=== PATIENT | male | born 1980 | race Two or more races ===

== ENCOUNTER → 2020-10-19 11:49 | Outpatient (BNVA) | payer OTHER, SELFPAY | PROVIDERS: PCP Nurse Practitioner Family; Referring Provider Nurse Practitioner Family; Visit Provider Internal Medicine Endocrinology, Diabetes & Metabolism | DX: Z76.89 Persons encountering health services in other specified circumstances (principal) ==

== ENCOUNTER 2021-02-16 13:55 | Outpatient (REF) | payer OTHER, SELFPAY | END 2021-02-16 13:56 | disposition home or self-care (01) | LOC: HO.LAB 13:55 | PROVIDERS: Visit Provider Internal Medicine | DX: Z20.822 Contact with and (suspected) exposure to COVID-19 (principal) | CPT/HCPCS: 36415; C9803; U0003; U0005 ==

== ENCOUNTER → 2021-03-30 10:51 | Outpatient (BNVA) | payer OTHER, SELFPAY | PROVIDERS: PCP Nurse Practitioner Family; Visit Provider Internal Medicine Endocrinology, Diabetes & Metabolism | DX: E11.65 Type 2 diabetes mellitus with hyperglycemia (principal); E11.21 Type 2 diabetes mellitus with diabetic nephropathy; E11.3393 Type 2 diabetes mellitus with moderate nonproliferative diabetic retinopathy without macular edema, bilateral; Z79.4 Long term (current) use of insulin; E78.5 Hyperlipidemia, unspecified; I10 Essential (primary) hypertension; E66.9 Obesity, unspecified; E55.9 Vitamin D deficiency, unspecified; Z91.19 Patient's noncompliance with other medical treatment and regimen | CPT/HCPCS: 82947 ==

== ENCOUNTER 2021-03-30 11:54 | Outpatient (REF) | payer OTHER, SELFPAY ==
[2021-03-30 12:58] LABS: Hematocrit 40.5 % (42-52); Hemoglobin 13.1 g/dl (14.0-18.0); Mean Corpuscular HGB Conc 32.3 g/dl (31.0-36.0); Mean Corpuscular Hemoglobin 25.8 pg (27.0-33.0); Mean Corpuscular Volume 79.7 fL (80-98); Mean Platelet Volume 12.2 fL (9.4-12.4); Platelet Count 175 X10*3/uL (160-400); Red Blood Count 5.08 X10*6/uL (4.60-5.80); Red Cell Distribution Width 13.2 % (11.0-16.0); White Blood Count 4.8 X10*3/uL (4.8-10.8)
[2021-03-30 13:14] LABS: Alanine Aminotransferase 24 U/L (0-40); Albumin Level 4.2 g/dL (3.5-5.0); Alkaline Phosphatase 104 U/L (39-117); Anion Gap 13 (12-20); Aspartate Amino Transferase 16 U/L (5-37); Bilirubin Total 0.6 mg/dL (0.0-1.0); Blood Urea Nitrogen 9 mg/dL (9-16); Carbon Dioxide 24 mmol/L (22-29); Chloride 104 mmol/L (96-108); Cholesterol 283 mg/dL; Estimated Glomerular Filt Rate > 60; Glucose Random 300 mg/dL (60-115); HDL Cholesterol 29 mg/dL; Sodium 137 mmol/L (135-145); Total Protein 7.3 g/dL (6.5-8.0); Triglycerides 821 mg/dL
[2021-03-30 13:37] LABS: Free T4 (Free Thyroxine) 0.96 ng/dL (0.71-1.85); Thyroid Stimulating Hormone 1.08 uIU/mL (0.32-4.0)
[2021-03-30 13:40] LABS: Microalbum/Creatinine Ratio Ur 437.6 ug/mg cr
[2021-03-30 13:43] LABS: Vitamin B12 306 pg/mL (200-900)
[2021-03-31 08:22] LABS: C Peptide 1.05 ng/mL (0.80-3.85); LDL Cholesterol Direct 53 mg/dL (<100)
== END 2021-03-30 11:55 | disposition home or self-care (01) ==
LOC: HO.10HDL 11:54
PROVIDERS: Visit Provider Internal Medicine Endocrinology, Diabetes & Metabolism
DX: E11.65 Type 2 diabetes mellitus with hyperglycemia (principal)
CPT/HCPCS: 36415; 80053; 80061; 82043; 82607; 83721; 84439; 84443; 84681; 85027

== ENCOUNTER → 2021-08-16 12:33 | Outpatient (BNVA) | payer OTHER, SELFPAY | PROVIDERS: PCP Nurse Practitioner Family; Visit Provider Nurse Practitioner Gerontology | DX: E11.65 Type 2 diabetes mellitus with hyperglycemia (principal); E11.21 Type 2 diabetes mellitus with diabetic nephropathy; E11.3393 Type 2 diabetes mellitus with moderate nonproliferative diabetic retinopathy without macular edema, bilateral; E78.5 Hyperlipidemia, unspecified; E66.9 Obesity, unspecified; E55.9 Vitamin D deficiency, unspecified; I10 Essential (primary) hypertension; Z79.4 Long term (current) use of insulin; Z91.19 Patient's noncompliance with other medical treatment and regimen | CPT/HCPCS: 82947; 83036 ==

== ENCOUNTER 2021-10-29 14:42 | Emergency (ER) | payer OTHER, MEDICAID, SELFPAY ==
--- NOTE | ~2021-10-29 | CT_ITS ---
EXAMINATION: CT ABDOMEN AND PELVIS WITH CONTRAST CLINICAL INFORMATION: Abdominal pain COMPARISON: 04/14/2011 TECHNIQUE: Multidetector volumetric images were obtained from the superior aspect of the liver through the pubic symphysis following administration 85 mL of Omnipaque 350 intravenous contrast. Sagittal and coronal reformatted images were obtained on the technologist's workstation. Oral contrast: No This CT examination was performed using dose optimization techniques as appropriate, variously including the following: *Automated exposure control *Adjustment of mA and/or kV according to patient size (this includes techniques or standardized protocols for targeted exams where dose is matched to indication/reason for exam; i.e. extremities or head) *Use of iterative reconstruction technique DLP: 925 mGy-cm FINDINGS: LUNG BASES: Bilateral rounded nodular densities surrounding groundglass opacities present within the lower lungs suspicious for atypical pneumonitis. LIVER, GALLBLADDER, AND BILIARY TREE: The liver is normal in size, shape, and attenuation. No focal hepatic lesion or biliary ductal dilatation is present. Gallbladder unremarkable. PANCREAS: Unremarkable. SPLEEN: Unremarkable. ADRENAL GLANDS: Unremarkable. KIDNEYS AND URETERS: The kidneys are normal in size, shape, and attenuation. No hydronephrosis, hydroureter, or calculi seen. No perinephric stranding. BLADDER: Unremarkable. GASTROINTESTINAL TRACT: The small and large bowel are unremarkable. The appendix is unremarkable. ABDOMINAL WALL: No significant hernia is appreciated. LYMPH NODES: Normal. VASCULAR: Aorta mildly atherosclerotic. PELVIC VISCERA: Unremarkable. OSSEOUS STRUCTURES: No acute or suspicious osseous or maladies. CT/CT abdomen pelvis w con IMPRESSION: * No acute findings within the abdomen or pelvis. * No evidence of appendicitis. * No intra or extrahepatic biliary dilatation. * There are nodular densities within the bilateral lungs with surrounding rounded groundglass opacity, pattern and appearance of which classic COVID pneumonitis.
[2021-10-29 16:53] VITALS: BP 176/96; PULSE 115; RESP 18; TEMP 37.3; O2SAT 95; BMI 39.5
[2021-10-29 17:23] LABS: Eosinophils Percent Auto 0.3 % (0-4); MANUAL DIFF FLAG SCAN; PLT CLUMP 1; SCAN SMEAR FLAG 1
[2021-10-29 17:25] LABS: Hemoglobin 11.7 g/dl (14.0-18.0); Imm Gran Abs Auto 0.04 X10*3/uL (0.00-0.03); Imm Gran Pct Auto 1.3 % (0.0-0.4); Lymphocytes Absolute Auto 0.9 X10*3/uL (1.2-4.9); Lymphocytes Percent Auto 29.6 % (20-40); Mean Corpuscular HGB Conc 32.5 g/dl (31.0-36.0); Mean Corpuscular Hemoglobin 26.2 pg (27.0-33.0); Mean Corpuscular Volume 80.5 fL (80.0-98.0); Mean Platelet Volume 11.3 fL (9.4-12.4); Monocytes Absolute Auto 0.2 X10*3/uL (0.1-1.2); Monocytes Percent Auto 5.9 % (2-11); Neutrophils Absolute Auto 1.9 x10*3/uL (2.0-8.3); Neutrophils Percent Auto 62.9 % (45-73); Platelet Count 117 X10*3/uL (160-400); Red Blood Count 4.47 X10*6/uL (4.60-5.80); White Blood Count 3.1 X10*3/uL (4.8-10.8)
[2021-10-29 17:43] LABS: Alanine Aminotransferase 28 U/L (0-40); Albumin Level 3.9 g/dL (3.5-5.0); Alkaline Phosphatase 69 U/L (39-117); Anion Gap 14 (12-20); Aspartate Amino Transferase 33 U/L (5-37); Bilirubin Total 0.9 mg/dL (0.0-1.0); Blood Urea Nitrogen 15 mg/dL (9-16); Calcium 8.2 mg/dL (8.4-10.2); Carbon Dioxide 24 mmol/L (22-29); Chloride 95 mmol/L (96-108); Estimated Glomerular Filt Rate 56; Glucose Random 364 mg/dL (60-115); Potassium 4.4 mmol/L (3.3-5.1); Sodium 129 mmol/L (135-145); Total Protein 6.8 g/dL (6.5-8.0)
[2021-10-29 18:00] LABS: Influenza A PCR NEGATIVE (Negative); Influenza B PCR NEGATIVE (Negative); Resp Syncy Virus RNA Qual PCR NEGATIVE (Negative); SARS COV2 PCR INHOUSE POSITIVE (Negative)
--- NOTE | 2021-10-29 21:03 | ED_ITS ---
HPI - Abdominal Pain General Chief Complaint: Abdominal Pain Stated Complaint: COVID Symptoms Time Seen by Provider: 10/29/21 15:05 Source: patient Mode of arrival: ambulatory Limitations: no limitations History of Present Illness HPI narrative: 41-year-old male who presents emergency department for evaluation of abdominal pain which began on 10/21/2021 (the day after Thanksgiving, 7 days prior to evaluation). Patient states that the pain came on in the morning after Thanksgiving. States the pain came on gradually then got progressively worse. Points to his right upper quadrant and right lower quadrant when asked to localize the pain. States the pain is a constant, pressure-like pain which waxes and wanes in intensity. The pain is 8/10 at its worst. Patient states he has had constant nausea. He states that he has had vomiting 2 to 3 times a day each day. States that initially had constant loose diarrheal stool but now he has 1-2 loose diarrheal stools per day. He states he is feeling weak, lig htheaded and dizzy. He had a subjective fever at home but denied chills. He states these had some slight dysuria but no frequency. This is his 1st episode of this type of pain. The patient states that he is a diabetic and he has not had any food to eat in 1-2 days. Related Data Home Medications Medication Instructions Recorded Confirmed aspirin 81 mg tablet,delayed 81 mg PO DAILY 10/19/20 08/16/21 release Previous Rx's Medication Instructions Recorded pen needle, diabetic 32 gauge x #3 10/19/20 (BD Cindy 2nd Gen Pen Needle) blood sugar diagnostic (FreeStyle #120 ea 03/30/21 Lite Strips) blood-glucose meter (FreeStyle #1 ea 03/30/21 Lite Meter) flash glucose scanning reader #1 ea 03/30/21 (FreeStyle Kavitha 14 Day Lee) flash glucose sensor (FreeStyle #2 ea 03/30/21 Kavitha 14 Day Sensor) lancets 28 gauge (FreeStyle #120 ea 03/30/21 Lancets) pen needle, diabetic 32 gauge x #100 ea 03/30/21 (BD Cindy 2nd Gen Pen Needle) insulin regular hum U-500 conc See Rx Instructions SUBCUT .Twice 08/09/21 (Humulin R U-500 (Conc) Insulin a day 30 Days #6 ml Kwikpen) atorvastatin 20 mg tablet 20 mg PO DAILY 30 Days #30 tab 08/16/21 cholecalciferol (vitamin D3) 125 125 mcg PO DAILY 30 Days #30 cap 08/16/21 mcg (5,000 unit) capsule fenofibrate nanocrystallized 145 145 mg PO DAILY 30 Days #30 tab 08/16/21 mg tablet lisinopril 20 mg tablet 20 mg PO DAILY 30 Days #30 tab 08/16/21 omega-3 fatty acids 1,000 mg 1,000 mg PO BID 30 Days #60 cap 08/16/21 capsule (Fish Oil Concentrate) Allergies Allergy/AdvReac Type Severity Reaction Status Date / Time No Known Allergies Allergy Unverified 08/16/21 12:57 Review of Systems Review of Systems Yes all other systems are reviewed and are negative Physical Exam Vital Signs: Vital Signs: Last Vital Signs Temp 99.2 F 10/29/21 21:21 Pulse 112 H 10/29/21 21:21 Resp 18 10/29/21 21:21 BP 147/86 H 10/29/21 21:21 Pulse Ox 97 10/29/21 21:21 BMI result Body Mass Index 39.5 Const: General: cooperative and no acute distress Orientation/consciousness: oriented to person and oriented to place Limitations: no limitations HENMT: Head: Yes normal to inspection, Yes normocephalic and Yes atraumatic Ears: external ears normal General nose exam: Normal external nose present Face and sinus: Yes normal facial exam Mouth: Normal oral and palatal mucosa present Throat: Yes posterior oropharynx normal Eyes: General: appearance normal, both eyes and all related structures Pupils: Equal, round and reactive pupils present Neck: Neck: Yes normal visual inspection, Yes no lymphadenopathy, Yes trachea midline and Yes supple Chest: Chest palpation & inspection: normal inspection of the chest and normal palpation of entire chest wall Resp: Effort & Inspection: normal respiratory effort and able to speak in com plete sentences Auscultation: clear to auscultation bilaterally Cardio: Rate: regular rate Rhythm: regular rhythm Heart sounds: S1 normal heart sound present, S2 normal heart sound present and no murmurs GI: Inspection: Yes normal to inspection Palpation (GI): Soft to palpation, Tenderness to palpation present (GI) in the RLQ (Moderate) and in the RUQ (Moderate, negative Pruett sign) and no guarding Auscultation: normal bowel sounds : General: Yes no CVA tenderness Back/Spine/Pelvis: Back: no CVA tenderness Skin: General skin exam: no rashes or lesions noted Neuro: General: oriented to person and oriented to place Cranial nerves: Yes CN's II-XII intact bilaterally and Yes Equal, round and reactive pupils present Cognition (Neuro): normal cognition Motor exam (neuro): 5/5 motor strength present throughout Extrem: General: Yes normal to inspection Psych: Appearance: grossly normal Speech and movement: Normal speech and movement present Affect: normal affect Attitude: cooperative Thought process: Normal thought process present Thought content: Normal thought content present Course Course Course Narrative: 41-year-old male who presents emergency department for evaluation of 7 days of right-sided abdominal pain. The pain started 1 day after Thanksgiving, the pain is a constant pressure-like pain which is 8/10 at its worst. The patient has had associated subjective fevers, nausea, vomiting and diarrhea. He has also had dysuria with no frequency. This is his 1st episode of this type of pain. Patient did have moderate right upper quadrant tenderness with a negative Pruett sign and moderate right lower quadrant tenderness. Laboratory evaluation, CT scan of the abdomen pelvis with IV contrast and urinalysis were ordered. Patient's pain was treated with Toradol 15 mg IV, his nausea was treated with Zofran 4 mg IV and he was ordered to get normal saline x2 L. 2125: Laboratory evaluation: Pancytopenia WBC 3100, H&H 11 and 36, platelet count 117. Sodium was low at 129, glucose was elevated at 364. Lipase and urinalysis are pending. Influenza screen was negative. RSV was negative. COVID-[address] scan of the abdomen pelvis with IV contrast is pending. 0052 : The CT scan of the patient's abdomen pelvis did not reveal a clear cause for his abdominal pain however the lung portion of the scan is consistent with COVID pneumonia. The patient's abdominal pain may be secondary to his pneumonia. The patient's O2 saturation at this time was 95%. I did discuss monoclonal antibody therapy with the patient and he would like to be referred. I did fill out the [facility] referral fall arm an e-mail did to the [place] infusion Site. MDM - Abdominal Pain Lab Data Result diagrams: 10/29/21 17:16 10/29/21 17:16 Labs: Lab Results 10/29/21 10/29/21 10/29/21 Range/Units 17:16 17:16 17:16 WBC 3.1 L (4.8-10.8) X10*3/uL RBC 4.47 L (4.60-5.80) X10*6/uL Hgb 11.7 L (14.0-18.0) g/dl Hct 36.0 L (42.0-52.0) % MCV 80.5 (80.0-98.0) fL MCH 26.2 L (27.0-33.0) pg MCHC 32.5 (31.0-36.0) g/dl RDW 13.0 (11.0-16.0) % Plt Count 117 L (160-400) X10*3/uL MPV 11.3 (9.4-12.4) fL Immature Gran % (Auto) 1.3 H (0.0-0.4) % Neut % (Auto) 62.9 (45-73) % Lymph % (Auto) 29.6 (20-40) % [place] % (Auto) 5.9 (2-11) % Eos % (Auto) 0.3 (0-4) % Baso % (Auto) 0.0 (0-2) % Lymph # (Auto) 0.9 L (1.2-4.9) X10*3/uL [place] # (Auto) 0.2 (0.1-1.2) X10*3/uL Eos # (Auto) 0.0 (0.0-0.4) X10*3/uL Baso # (Auto) 0.0 (0.0-0.2) X10*3/uL Abs Immat Gran (auto) 0.04 H (0.00-0.03) X10*3/uL Absolute Neuts (auto) 1.9 L (2.0-8.3) x10*3/uL Absolute Nucleated RBC 0.000 (0.0-0.012) X10*3/uL Nucleated RBC % (auto) 0.0 (0.0-0.2) /100WBC Smear Tech's Comments Not Reportable Sodium 129 L (135-145) mmol/L Potassium 4.4 (3.3-5.1) mmol/L Chloride 95 L (96-108) mmol/L Carbon Dioxide 24 (22-29) mmol/L Anion Gap 14 (12-20) BUN 15 (9-16) mg/dL Creatinine 1.39 (0.5-1.4) mg/dL Estim Creat Clear Calc 81.0 Estimated GFR 56 Random Glucose 364 H* (60-115) mg/dL Calcium 8.2 L D (8.4-10.2) mg/dL Total Bilirubin 0.9 (0.0-1.0) mg/dL AST 33 D (5-37) U/L ALT 28 (0-40) U/L Alkaline Phosphatase 69 D (39-117) U/L Total Protein 6.8 (6.5-8.0) g/dL Albumin 3.9 (3.5-5.0) g/dL Lipase 26 (8-78) U/L Urine Color Urine Appearance Urine pH (5.0-8.0) Ur Specific [place] (1.005-1.025) Urine Protein (NEG-TRACE) MG/DL Urine Glucose (UA) (NEG) MG/DL Urine Ketones (NEG) MG/DL Urine Blood (NEG) Urine Nitrite (NEG) Ur Leukocyte Esterase (NEG) Urine RBC (0) /HPF Urine WBC (0-4) /HPF Ur Squamous Epith Cells /LPF Amorphous Sediment /LPF Urine Bacteria /LPF Influenza Type A (PCR) NEGATIVE (Negative) Influenza Type B (PCR) NEGATIVE (Negative) RSV RNA Qual (PCR) NEGATIVE (Negative) SARS-CoV-2 RNA (RT-PCR) POSITIVE A (Negative) 10/29/21 Range/Units 21:15 WBC (4.8-10.8) X10*3/uL RBC (4.60-5.80) X10*6/uL Hgb (14.0-18.0) g/dl Hct (42.0-52.0) % MCV (80.0-98.0) fL MCH (27.0-33.0) pg MCHC (31.0-36.0) g/dl RDW (11.0-16.0) % Plt Count (160-400) X10*3/uL MPV (9.4-12.4) fL Immature Gran % (Auto) (0.0-0.4) % Neut % (Auto) (45-73) % Lymph % (Auto) (20-40) % [place] % (Auto) (2-11) % Eos % (Auto) (0-4) % Baso % (Auto) (0-2) % Lymph # (Auto) (1.2-4.9) X10*3/uL [place] # (Auto) (0.1-1.2) X10*3/uL Eos # (Auto) (0.0-0.4) X10*3/uL Baso # (Auto) (0.0-0.2) X10*3/uL Abs Immat Gran (auto) (0.00-0.03) X10*3/uL Absolute Neuts (auto) (2.0-8.3) x10*3/uL Absolute Nucleated RBC (0.0-0.012) X10*3/uL Nucleated RBC % (auto) (0.0-0.2) /100WBC Smear Tech's Comments Sodium (135-145) mmol/L Potassium (3.3-5.1) mmol/L Chloride (96-108) mmol/L Carbon Dioxide (22-29) mmol/L Anion Gap (12-20) BUN (9-16) mg/dL Creatinine (0.5-1.4) mg/dL Estim Creat Clear Calc Estimated GFR Random Glucose (60-115) mg/dL Calcium (8.4-10.2) mg/dL Total Bilirubin (0.0-1.0) mg/dL AST (5-37) U/L ALT (0-40) U/L Alkaline Phosphatase (39-117) U/L Total Protein (6.5-8.0) g/dL Albumin (3.5-5.0) g/dL Lipase (8-78) U/L Urine Color YELLOW Urine Appearance CLEAR Urine pH 6.0 (5.0-8.0) Ur Specific [place] 1.025 (1.005-1.025) Urine Protein 2+ H (NEG-TRACE) MG/DL Urine Glucose (UA) >=1000 H (NEG) MG/DL Urine Ketones NEG (NEG) MG/DL Urine Blood NEG (NEG) Urine Nitrite NEG (NEG) Ur Leukocyte Esterase NEG (NEG) Urine RBC 0 (0) /HPF Urine WBC 0 (0-4) /HPF Ur Squamous Epith Cells TRACE /LPF Amorphous Sediment TRACE /LPF Urine Bacteria NONE /LPF Influenza Type A (PCR) (Negative) Influenza Type B (PCR) (Negative) RSV RNA Qual (PCR) (Negative) SARS-CoV-2 RNA (RT-PCR) (Negative) Discharge Plan Discharge Clinical Impression: Abdominal pain, Pneumonia due to COVID-19 virus Patient Disposition: Home, Self-Care Instructions: Abdominal Pain (ED), COVID-19 (Coronavirus Disease 2019) (ED) Additional Instructions: Your blood work was unremarkable. Your COVID-19 test was positive. The CT scan of your abdomen did not reveal a clear cause for your abdominal pain however the lung portion that was seen on the CT scan is consistent with COVID- 19 pneumonia. The COVID-19 virus is causing your symptoms of abdominal pain and causing her to have pneumonia. Your at high risk for getting very sick from this COVID-19 virus and your at high risk from dying from COVID-19 virus. Your risk factors include obesity, high blood pressure, and diabetes. I am referring you to the [facility] COVID-19 monoclonal antibiotic the infusion site. Please see the referral form, I emailed this to them this morning. I want you to call the infusion site at and they can give you more specific directions as to where the clinic is and how to get treatment. I did give them your phone number and they should also contact you but you should contact them as well. Follow-up with your doctor in 2 days. Please return to the emergency department if your symptoms get worse or if you develop any symptoms that are concerning to you. Prescriptions: No Action (DME) FreeStyle Kavitha 14 Day Lee Misc See Rx Instructions miscellaneous .MEDSUPPLY Qty: 1 RF: 0 (DME) FreeStyle Kavitha 14 Day Sensor Kit See Rx Instructions .MEDSUPPLY Qty: 2 RF: 11 Humulin R U-500 (Conc) Kwikpen 500 unit/mL (3 mL) insulin pen See Rx Instructions subcut .Twice a day 30 Days Qty: 6 RF: 6 aspirin 81 mg tablet,delayed release (DR/EC) 81 mg PO DAILY RF: 0 (DME) pen needle, diabetic [BD Cindy 2nd Gen Pen Needle] 32 gauge x 5/32 needle See Rx Instructions .MEDSUPPLY Qty: 3 RF: 4 (DME) pen needle, diabetic [BD Cindy 2nd Gen Pen Needle] 32 gauge x 5/32 needle See Rx Instructions .MEDSUPPLY Qty: 100 RF: 4 (DME) FreeStyle Lite Strips Strip See Rx Instructions miscellaneous .MEDSUPPLY Qty: 120 RF: 5 (DME) blood-glucose meter [FreeStyle Lite Meter] Kit See Rx Instructions miscellaneous .MEDSUPPLY Qty: 1 RF: 0 (DME) lancets [FreeStyle Lancets] 28 gauge misc See Rx Instructions .MEDSUPPLY Qty: 120 RF: 5 omega-3 fatty acids [Fish Oil Concentrate] 1,000 mg capsule 1,000 mg PO BID 30 Days Qty: 60 RF: 11 cholecalciferol (vitamin D3) 125 mcg (5,000 unit) capsule 125 mcg PO DAILY 30 Days Qty: 30 RF: 11 fenofibrate nanocrystallized 145 mg tablet 145 mg PO DAILY 30 Days Qty: 30 RF: 6 atorvastatin 20 mg tablet 20 mg PO DAILY 30 Days Qty: 30 RF: 3 lisinopril 20 mg tablet 20 mg PO DAILY 30 Days Qty: 30 RF: 6 PMFSH Past Medical History PMFSH Narrative: Past surgical history: None. Social history: Patient denies tobacco, alcohol and drug use. 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 Non-adherence to medical treatment Non-proliferative diabetic retinopathy, moderate, both eyes Obesity (BMI 30-39.9) Vitamin D deficiency Surgical History No pertinent past surgical history Family History Family History Father Diabetes mellitus Mother Diabetes mellitus Paternal Grandfather Diabetes mellitus Maternal Grandmother Diabetes mellitus Social History Social History Household Members: Spouse and Children Alcohol intake: never Patient Tobacco Use Status: Former Tobacco user Years Smoked: 21 years Substance Use Type: Marijuana Advance Directives: No Advance Directives Information Provided: Yes
[2021-10-29 21:21] VITALS: BP 147/86; PULSE 112; RESP 18; TEMP 37.3; O2SAT 97
[2021-10-29 21:41] LABS: Appearance Urine CLEAR; Color Urine YELLOW; Glucose Urine UA >=1000 MG/DL (NEG); Leukocyte Esterase Urine NEG (NEG); Nitrite Urine NEG (NEG); Specific Gravity - Urine 1.025 (1.005-1.025); UACC Culture Trigger NO; Urine Blood NEG (NEG); Urine Ketones NEG (NEG); Urine Protein 2+ MG/DL (NEG-TRACE)
[2021-10-29 21:52] LABS: Lipase 26 U/L (8-78)
[2021-10-29] MEDS: iohexoL 350 MG/ML 100 ML INFUS..BTL 85 ML IV (22:00)
[2021-10-29] MEDS: 0.9 % Sodium Chloride 1,000 ML 999 ML IV ×2 (22:31→22:32)
[2021-10-29] MEDS: Acetaminophen 325 MG TABLET 975 MG PO (22:31)
[2021-10-29] MEDS: Ketorolac Tromethamine 15 MG/ML VIAL IVPUSH (22:32)
[2021-10-29] MEDS: ondansetron HCL 4 MG/2 ML VIAL IVPUSH (22:32)
[2021-10-29 23:07] LABS: Amorphous Sediment Urine TRACE /LPF; Squamous Epithelial Cell Urine TRACE /LPF
[2021-10-29 23:08] LABS: RBC Urine 0 /HPF (0); WBC Urine 0 /HPF (0-4)
[2021-10-30 01:01] VITALS: BP 127/71; PULSE 97; TEMP 37.7; O2SAT 94
== END 2021-10-30 01:14 | disposition home or self-care (01) ==
PROVIDERS: Physician Assistant Medical; Emergency Provider Emergency Medicine Emergency Medical Services; PCP Nurse Practitioner Family
DX: U07.1 COVID-19 (principal); J12.82 Pneumonia due to coronavirus disease 2019; R10.9 Unspecified abdominal pain
CPT/HCPCS: 0241U; 36415; 74177; 80053; 81001; 83690; 85025; 96361; 96374; 96375; 99284; J1885; J2405; Q9967

== ENCOUNTER 2021-11-05 07:12 | Inpatient (IN) | payer OTHER, MEDICAID, SELFPAY ==
--- NOTE | ~2021-11-05 | US_ITS ---
EXAMINATION: US ABDOMEN LIMITED CLINICAL INFORMATION: Abnormal liver function tests. Right upper quadrant pain.. COMPARISON: None TECHNIQUE: Real-time imaging of the right upper quadrant abdominal viscera. FINDINGS: PANCREAS: Not well visualized due to bowel gas LIVER: The liver is normal in size. The liver contour is normal. Liver echotexture is increased probably representing fatty infiltration. There is a focal hypoechoic area adjacent to the gallbladder, a characteristic location of focal fatty sparing. No other focal hepatic lesion. There is no intrahepatic biliary duct dilatation seen. GALLBLADDER: Normal. The gallbladder is physiologically distended without evidence of stones, sludge, polyps, wall thickening or pericholecystic fluid. COMMON BILE DUCT: Normal in caliber measuring 0.3 cm in diameter. RIGHT KIDNEY: Normal. No hydronephrosis. No renal calculi or focal parenchymal lesions. The kidney measures 11 cm in maximum dimension. FREE FLUID: None. US/US abdomen limited IMPRESSION: Echogenic liver probably representing fatty infiltration. Nonvisualization of the pancreas.
--- NOTE | ~2021-11-05 | CT_ITS ---
EXAMINATION: CT ANGIOGRAM OF THE CHEST WITH AND WITHOUT CONTRAST (CT PULMONARY ANGIOGRAM FOR PE) CLINICAL INFORMATION: Reason for Exam COVID, syncope COMPARISON: Chest x-ray from earlier the same day TECHNIQUE: Prior to contrast administration, noncontrast localization images were obtained. Subsequently, multidetector volumetric imaging was performed from the thoracic inlet to below the diaphragms following the administration of 75 mL Omnipaque 350 intravenous contrast. No contrast reaction reported Sagittal, coronal, and MIP oblique sagittal reformatted images were obtained on the CT workstation, uploaded to PACS, and reviewed. This CT examination was performed using dose optimization techniques as appropriate, variously including the following: *Automated exposure control *Adjustment of mA and/or kV according to patient size (this includes techniques or standardized protocols for targeted exams where dose is matched to indication/reason for exam; i.e. extremities or head) *Use of iterative reconstruction technique Total exam dose-length product 539 mGy-cm FINDINGS: QUALITY OF STUDY/CONTRAST BOLUS: Exam is limited due to timing of intravenous contrast. PULMONARY ARTERIES: No central or segmental pulmonary emboli. Evaluation of smaller segmental and subsegmental pulmonary arteries is limited, in particular at the right upper lobe. No definite pulmonary embolism is seen. THORACIC AORTA: No aneurysm or dissection. LUNG: There are diffuse bilateral patchy peripheral areas of groundglass attenuation. Chest CT appearance is nonspecific but would be compatible with Covid infection. PLEURA: No pleural effusion or pneumothorax. MEDIASTINUM: Normal heart size. No pericardial effusion. There is diffuse mediastinal and bilateral hilar lymphadenopathy. No enlarged hilar or mediastinal lymphadenopathy. No evidence of septal bowing or right heart strain. CHEST WALL/AXILLA: No axillary or internal mammary lymphadenopathy. OSSEOUS STRUCTURES: No acute or suspicious osseous abnormality. There are degenerative changes of the spine. UPPER ABDOMEN: The liver and spleen are not completely imaged but appear prominent. No reflux of contrast into the hepatic veins to suggest elevated right heart pressures. CT/CT angio chest PE protocol IMPRESSION: Limited exam due to timing of intravenous contrast. No evidence of large or central pulmonary embolism. Diffuse groundglass attenuation infiltrates compatible with Covid infection. Diffuse mediastinal and bilateral hilar lymphadenopathy. Prominent liver and spleen. VTE: negative
--- NOTE | ~2021-11-05 | XR_ITS ---
EXAMINATION: XR CHEST CLINICAL INFORMATION: Weakness COMPARISON: None TECHNIQUE: Frontal view of the chest was obtained. FINDINGS: The cardiac and mediastinal contours are normal. The lung volumes are low. There are bilateral patchy peripheral infiltrates. Findings are suggestive of Covid pneumonia. There is no pleural effusion or pneumothorax. Bony structures are normal. XR/XR chest 1V IMPRESSION: Low lung volumes and bilateral peripheral infiltrates. Findings are questionable for Covid pneumonia.
[2021-11-05 07:35] VITALS: BP 143/78; PULSE 100; RESP 16; TEMP 36.9; O2SAT 96; BMI 40.1
--- NOTE | 2021-11-05 08:36 | ED_ITS ---
HPI - General Adult General Chief complaint: General Medical Stated complaint: COVID+/trouble eating &sleeping Time Seen by Provider: 11/05/21 07:41 Source: patient Mode of arrival: ambulatory Limitations: no limitations History of Present Illness HPI narrative: seen on 10/29 dx - negative CT scan referred to [facility] and completed therapy with treatments this Sunday - COVID positive that day 10/29 CT scan *? No acute findings within the abdomen or pelvis. *? No evidence of appendicitis. *? No intra or extrahepatic biliary dilatation. *? There are nodular densities within the bilateral lungs with surrounding rounded groundglass opacity, pattern and appearance of which classic COVID pneumonitis. complaint: n/v/d weakness syncopal event today while having diarrhea, COVID + 7 days Onset (ago): day(s) (7) Location: abdomen Radiation: abdomen Severity: moderate Quality: aching Pain Consistency: constant Relieving factors: none Exacerbating factors: none Associated symptoms: fever/chills, loss of appetite, malaise, nausea/vomiting, syncope (was having BM this AM became weak saw white and woke up on the floor (was sitting on the toilet) no injuries reported) and weakness Treatments prior to arrival: none Related Data Home Medications Medication Instructions Recorded Confirmed aspirin 81 mg tablet,delayed 81 mg PO DAILY 10/19/20 08/16/21 release Previous Rx's Medication Instructions Recorded pen needle, diabetic 32 gauge x #3 10/19/20 (BD Cindy 2nd Gen Pen Needle) blood sugar diagnostic (FreeStyle #120 ea 03/30/21 Lite Strips) blood-glucose meter (FreeStyle #1 ea 03/30/21 Lite Meter) flash glucose scanning reader #1 ea 03/30/21 (FreeStyle Kavitha 14 Day [place]) flash glucose sensor (FreeStyle #2 ea 03/30/21 Kavitha 14 Day Sensor) lancets 28 gauge (FreeStyle #120 ea 03/30/21 Lancets) pen needle, diabetic 32 gauge x #100 ea 03/30/21 (BD Cindy 2nd Gen Pen Needle) insulin regular hum U-500 conc See Rx Instructions SUBCUT .Twice 08/09/21 (Humulin R U-500 (Conc) Insulin a day 30 Days #6 ml Kwikpen) atorvastatin 20 mg tablet 20 mg PO DAILY 30 Days #30 tab 08/16/21 cholecalciferol (vitamin D3) 125 125 mcg PO DAILY 30 Days #30 cap 08/16/21 mcg (5,000 unit) capsule fenofibrate nanocrystallized 145 145 mg PO DAILY 30 Days #30 tab 08/16/21 mg tablet lisinopril 20 mg tablet 20 mg PO DAILY 30 Days #30 tab 08/16/21 omega-3 fatty acids 1,000 mg 1,000 mg PO BID 30 Days #60 cap 08/16/21 capsule (Fish Oil Concentrate) Allergies Allergy/AdvReac Type Severity Reaction Status Date / Time No Known Allergies Allergy Unverified 08/16/21 12:57 Review of Systems Review of Systems: Constitutional : No Weight loss, No Fever, pos Chills, pos malaise ENT/Mouth : No sore throat, No Rhinorrhea Eyes: No Swelling, No Redness Cardiovascular : No Chest Pain, No SOB, NoEdema Respiratory : No Cough, No Sputum, No Wheezing Gastrointestinal : Positive Nausea, Positive Vomiting, positive Diarrhea, positive abdominal Pain, No Hematochezia, No Melena Genitourinary : No Dysuria, No Urinary Frequency, No Hematuria, No Urgency Musculoskeletal : No joint pain, No Myalgias, No Joint Swelling Skin : No Skin Lesions, No rash Neuro :pos Weakness, No Numbness, No Dizziness, No Headache, pos syncope Psych : No Anxiety/Panic, No Depression Heme/Lymph: No Bruising, No Lymphadenopathy Endocrine : No Polyuria, No Polydipsia All other systems reviewed and are negative. [facility] Past Medical History Attestation statement: The following information was validated with the patient. 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 Non-adherence to medical treatment Non-proliferative diabetic retinopathy, moderate, both eyes Obesity (BMI 30-39.9) Vitamin D deficiency Surgical History No pertinent past surgical history Family History Family History Father Diabetes mellitus Mother Diabetes mellitus Paternal Grandfather Diabetes mellitus Maternal Grandmother Diabetes mellitus Social History Social History Household Members: Spouse and Children Alcohol intake: never Patient Tobacco Use Status: Former Tobacco user Years Smoked: 21 years Substance Use Type: Marijuana Advance Directives: No Advance Directives Information Provided: No Physical Exam Vital Signs: Vital Signs: Last Vital Signs Temp 98.4 F 11/05/21 07:35 Pulse 105 H 11/05/21 11:25 Resp 20 11/05/21 11:25 BP 136/75 11/05/21 11:25 Pulse Ox 93 11/05/21 11:25 BMI result Body Mass Index 40.1 Appearance: Alert. Oriented X3. No acute distress. Eyes: Pupils equal, round and reactive to light. ENT: Pharynx normal. Neck: Normal inspection. Neck supple. CVS: Normal heart rate and rhythm. Pulses normal. Respiratory: No respiratory distress. Breath sounds normal. Abdomen: Soft and mild diffuse ttp Skin: Skin warm and dry. pale skin color. Normal skin turgor. Extremities: No lower extremity edema. No calf ttp Neuro: Oriented X 3. No motor deficit. No sensory deficit. Course Course Course Narrative: COVID pneumonia but O2 sats normal LFTs elevated US ordered to evaluate GB US negative GB reports dyspnea to RN now will obtain CTA at this time given syncope to r/o PE - RA sats 88% during complaint placed on 2L NC 93% at this time possible superimposed bacterial infection suspected 1131am - lactic acid, cultures, IV ceftriaxone ordered Medical Decision Making MDM Narrative Medical decision making narrative: 41 yo male with hx of HTN, HLD, DM, unvaccinated seen here on 10/29 with abdominal pain had negative CT scan of abdomen but + for COVID with sick contact in family he comes back for persistent n/v/d and abdominal pain today having BM and felt weak, dizzy and had syncopal event at home no CP/SOB on arrival to suggest PE has had these symptoms for 1 week suspect dehydration and vasovagal syncope - at this time labs, fluids, IV zofran. Dispo per results and findings. Lab Data Result diagrams: 11/05/21 09:17 11/05/21 09:17 Labs: Lab Results 11/05/21 11/05/21 11/05/21 Range/Units 09:17 09:17 09:17 WBC 8.5 (4.8-10.8) X10*3/uL RBC 3.97 L (4.60-5.80) X10*6/uL Hgb 10.2 L (14.0-18.0) g/dl Hct 31.9 L (42.0-52.0) % MCV 80.4 (80.0-98.0) fL MCH 25.7 L (27.0-33.0) pg MCHC 32.0 (31.0-36.0) g/dl RDW 13.3 (11.0-16.0) % Plt Count 454 H D (160-400) X10*3/uL MPV 10.3 (9.4-12.4) fL Immature Gran % (Auto) Cancelled Neut % (Auto) Cancelled Lymph % (Auto) Cancelled [place] % (Auto) Cancelled Eos % (Auto) Cancelled Baso % (Auto) Cancelled Lymph # (Auto) Cancelled [place] # (Auto) Cancelled Eos # (Auto) Cancelled Baso # (Auto) Cancelled Abs Immat Gran (auto) Cancelled Absolute Neuts (auto) Cancelled Absolute Nucleated RBC 0.020 H (0.0-0.012) X10*3/uL Nucleated RBC % (auto) 0.2 (0.0-0.2) /100WBC Neutrophils % (Manual) 59 (45-73) % Band Neutrophils % 14 H (3-5) % Lymphocytes % (Manual) 13 L (20-40) % Atypical Lymphs % (Man) 4 (0-6) % Monocytes % (Manual) 7 (2-11) % Metamyelocytes % 3 % Abs Neuts (Manual) 6.2 (2.0-8.3) X10*3/uL Lymphocytes # (Manual) 1.1 L (1.2-4.9) X10*3/uL Atyp Lymphs # (Manual) 0.3 x10*3/uL Monocytes # (Manual) 0.6 (0.1-1.2) X10*3/uL Metamyelocytes # 0.3 X10*3/uL Nucleated RBCs 1 H (0-0) /100WBC Platelet Estimate INCREASED (NORMAL) Plt Morphology Comment NORMAL RBC Morphology NORMAL Polychromasia 1+ (0-2) /OIF Microcytosis 1+ (5-14) /OIF Schistocytes 1+ (0-2) /OIF Sodium 136 (135-145) mmol/L Potassium 4.3 (3.3-5.1) mmol/L Chloride 100 (96-108) mmol/L Carbon Dioxide 25 (22-29) mmol/L Anion Gap 15 (12-20) BUN 14 (9-16) mg/dL Creatinine 0.98 (0.5-1.4) mg/dL Estim Creat Clear Calc 115.9 Estimated GFR > 60 Random Glucose 96 D (60-115) mg/dL Calcium 8.7 D (8.4-10.2) mg/dL Magnesium 2.3 (1.6-2.6) mg/dL Total Bilirubin 1.7 H (0.0-1.0) mg/dL Direct Bilirubin 0.8 H (0.0-0.5) mg/dL AST 125 H (5-37) U/L ALT 101 H (0-40) U/L Alkaline Phosphatase 393 H D (39-117) U/L Troponin I High Sens (<3.5-35.0) ng/L Total Protein 6.8 (6.5-8.0) g/dL Albumin 3.5 (3.5-5.0) g/dL COVID-19 (BRAXTON) Negative (Negative) COVID-19 Clin Com See Note 11/05/21 Range/Units 09:17 WBC (4.8-10.8) X10*3/uL RBC (4.60-5.80) X10*6/uL Hgb (14.0-18.0) g/dl Hct (42.0-52.0) % MCV (80.0-98.0) fL MCH (27.0-33.0) pg MCHC (31.0-36.0) g/dl RDW (11.0-16.0) % Plt Count (160-400) X10*3/uL MPV (9.4-12.4) fL Immature Gran % (Auto) Neut % (Auto) Lymph % (Auto) [place] % (Auto) Eos % (Auto) Baso % (Auto) Lymph # (Auto) [place] # (Auto) Eos # (Auto) Baso # (Auto) Abs Immat Gran (auto) Absolute Neuts (auto) Absolute Nucleated RBC (0.0-0.012) X10*3/uL Nucleated RBC % (auto) (0.0-0.2) /100WBC Neutrophils % (Manual) (45-73) % Band Neutrophils % (3-5) % Lymphocytes % (Manual) (20-40) % Atypical Lymphs % (Man) (0-6) % Monocytes % (Manual) (2-11) % Metamyelocytes % % Abs Neuts (Manual) (2.0-8.3) X10*3/uL Lymphocytes # (Manual) (1.2-4.9) X10*3/uL Atyp Lymphs # (Manual) x10*3/uL Monocytes # (Manual) (0.1-1.2) X10*3/uL Metamyelocytes # X10*3/uL Nucleated RBCs (0-0) /100WBC Platelet Estimate (NORMAL) Plt Morphology Comment RBC Morphology Polychromasia /OIF Microcytosis /OIF Schistocytes /OIF Sodium (135-145) mmol/L Potassium (3.3-5.1) mmol/L Chloride (96-108) mmol/L Carbon Dioxide (22-29) mmol/L Anion Gap (12-20) BUN (9-16) mg/dL Creatinine (0.5-1.4) mg/dL Estim Creat Clear Calc Estimated GFR Random Glucose (60-115) mg/dL Calcium (8.4-10.2) mg/dL Magnesium (1.6-2.6) mg/dL Total Bilirubin (0.0-1.0) mg/dL Direct Bilirubin (0.0-0.5) mg/dL AST (5-37) U/L ALT (0-40) U/L Alkaline Phosphatase (39-117) U/L Troponin I High Sens 5.0 (<3.5-35.0) ng/L Total Protein (6.5-8.0) g/dL Albumin (3.5-5.0) g/dL COVID-19 (BRAXTON) (Negative) COVID-19 Clin Com ECG Data Attestation: I personally reviewed and interpreted this ECG as follows: Interpretation: Rate: 103 Rhythm: sinus tachycardia Overton: normal Normal P waves. Normal KI. Normal QRS complex. ST T wave : no SHALOM, nonspecific qTC: normal prior studies: no acute ischemia The study has been interpreted contemporaneously by me. . Discharge Plan Discharge Clinical Impression: Pneumonia due to 2019 novel coronavirus, Elevated liver function tests, Hypoxia Patient Disposition: Admitted As Inpatient
--- NOTE | 2021-11-05 08:52 | ECG_ITS ---
Test Reason : ABDOMINAL PAIN Blood Pressure : / mmHG Vent. Rate : 103 BPM Atrial Rate : 103 BPM P-R Int : 120 ms QRS Dur : 086 ms QT Int : 348 ms P-R-T Axes : 065 065 027 degrees QTc Int : 455 ms Sinus tachycardia Nonspecific T wave abnormality Abnormal ECG When compared with ECG of 14-FEB-2005 13:15, No significant change was found Referred By: Brianne Wade Electronically Signed By:Juan Mcknight
[2021-11-05] MEDS: ondansetron HCL 4 MG/2 ML VIAL IVPUSH (09:27)
[2021-11-05 09:29] LABS: Hematocrit 31.9 % (42.0-52.0); Hemoglobin 10.2 g/dl (14.0-18.0); Mean Corpuscular Hemoglobin 25.7 pg (27.0-33.0); Mean Corpuscular Volume 80.4 fL (80.0-98.0); Mean Platelet Volume 10.3 fL (9.4-12.4); NRBC Pct Auto 0.2 /100WBC (0.0-0.2); Platelet Count 454 X10*3/uL (160-400); Red Blood Count 3.97 X10*6/uL (4.60-5.80); Red Cell Distribution Width 13.3 % (11.0-16.0); White Blood Count 8.5 X10*3/uL (4.8-10.8)
[2021-11-05] MEDS: 0.9 % Sodium Chloride 1,000 ML 999 ML IV (09:30)
[2021-11-05 09:48] LABS: Atypical Lymph Absolute Manual 0.3 x10*3/uL; Atypical Lymphs Percent Manual 4 % (0-6); Band Neutrophils Percent 14 % (3-5); Lymphocytes Absolute Manual 1.1 X10*3/uL (1.2-4.9); Lymphocytes Percent Manual 13 % (20-40); Metamyelocytes Absolute 0.3 X10*3/uL; Metamyelocytes Percent 3 %; Monocytes Absolute Manual 0.6 X10*3/uL (0.1-1.2); Monocytes Percent Manual 7 % (2-11); Neutrophils Absolute Manual 6.2 X10*3/uL (2.0-8.3); Neutrophils Percent Manual 59 % (45-73)
[2021-11-05 09:50] LABS: Microcytosis 1+ (5-14) /OIF; Nucleated Red Blood Cells 1 /100WBC (0-0); Polychromasia 1+ (0-2) /OIF; RBC Morphology NORMAL
[2021-11-05 09:51] LABS: Schistocytes 1+ (0-2) /OIF
[2021-11-05 10:02] LABS: COVID-19 Test Negative (Negative)
[2021-11-05 10:06] LABS: Alanine Aminotransferase 101 U/L (0-40); Albumin Level 3.5 g/dL (3.5-5.0); Alkaline Phosphatase 393 U/L (39-117); Anion Gap 15 (12-20); Aspartate Amino Transferase 125 U/L (5-37); Bilirubin Direct 0.8 mg/dL (0.0-0.5); Bilirubin Total 1.7 mg/dL (0.0-1.0); Blood Urea Nitrogen 14 mg/dL (9-16); Calcium 8.7 mg/dL (8.4-10.2); Carbon Dioxide 25 mmol/L (22-29); Chloride 100 mmol/L (96-108); Creatinine Clr Calc Pharmacy 115.9; Estimated Glomerular Filt Rate > 60; Glucose Random 96 mg/dL (60-115); Magnesium 2.3 mg/dL (1.6-2.6); Potassium 4.3 mmol/L (3.3-5.1); Sodium 136 mmol/L (135-145); Total Protein 6.8 g/dL (6.5-8.0)
[2021-11-05 10:39] LABS: Platelet Estimate INCREASED (NORMAL)
[2021-11-05 10:47] LABS: Platelet Morphology Comment NORMAL
[2021-11-05 11:20] VITALS: O2SAT 88
[2021-11-05 11:25] VITALS: BP 136/75; PULSE 105; RESP 20; O2SAT 93
[2021-11-05] MEDS: dexAMETHasone sod phosphate 4 MG/ML VIAL 6 MG IVPUSH (11:40)
[2021-11-05] MEDS: cefTRIAXone sodium 1 GM in 0.9 % Sodium Chloride 50 ML IV (11:40)
[2021-11-05] MEDS: iohexoL 350 MG/ML 100 ML INFUS..BTL IV (12:29)
[2021-11-05 12:32] LABS: Lactic Acid 0.8 mmol/L (0.5-2.0)
[2021-11-05 12:34] LABS: INTERNATIONAL NORM RATIO 1.4 (0.9-1.1); Prothrombin Time 16.1 SEC (9.9-13.0)
[2021-11-05 12:36] LABS: D Dimer High Sensitivity 644 NG/ML
[2021-11-05 12:37] LABS: Partial Thromboplastin Time 39.6 SEC (24.1-38.0)
--- NOTE | 2021-11-05 13:02 | P.HPHOSP_ITS ---
History of Present Illness Date of Service: 11/05/21 Attending physician on admission: [facility] Chief Complaint: shortness of breath 41 year old man presenting with increased shortness of breath worsening over the last few days. He reports feeling unwell since after Thanksgiving. He reported that he is on vaccinated and he believes that his son may have parotid from high school. His whole family had been sick everyone negative for COVID except him. He initially presented to the ER on October 29 and was positive for COVID-19. He was discharged home. Over the last week he had developed some diarrhea and reported yesterday that he had a syncopal episode while in the bathroom. He reported that everything went white . He woke up and was able to get himself up and called somebody to bring him to the hospital. His liver enzymes were noted to be elevated with total bili of 1.7, LDH 953. No fever noted. He did have an oxygen saturation of 88% and was placed on 2 liters. In the ER, he was given a dose of ceftriaxone and 1 L of IV fluids. He will be admitted for further management and treatment of acute hypoxic respiratory failure secondary to COVID-19. Review of Systems Verdana 4l Review of Systems: Verdana 4d Verdana 4d Denies any recent fever chills or decrease in appetite respiratory See HPI cardiovascular denied chest pain, no PND or orthopnea gastrointestinal denies any dysphagia abdominal pain nausea vomiting or diarrhea genitourinary denies anyany dysuria frequency or hematuria musculoskeletal denies any joint pain or swelling neuropsych denies any weakness or seizures all other systems reviewed are negative [facility] Medical History Diabetes type 2, uncontrolled Diabetic nephropathy associated with type 2 diabetes mellitus Dyslipidemia Hypertension long-term (current) use of insulin Non-adherence to medical treatment Non-proliferative diabetic retinopathy, moderate, both eyes Obesity (BMI 30-39.9) Vitamin D deficiency Family History Father Diabetes mellitus Mother Diabetes mellitus Paternal Grandfather Diabetes mellitus Maternal Grandmother Diabetes mellitus Surgical History No pertinent past surgical history Social History Household Members: Spouse and Children Alcohol intake: never Patient Tobacco Use Status: Former Tobacco user Years Smoked: 21 years Smoked in Last 30 Days: No Use of substances other than those prescribed or required for medical reasons: No Substance Use Type: Marijuana Advance Directives: No Advance Directives Information Provided: No Meds Allergies Allergy/AdvReac Type Severity Reaction Status Date / Time No Known Allergies Allergy Unverified 08/16/21 12:57 Home Medications Medication Instructions Recorded Confirmed Last Taken Type insulin regular 65 unit SUBCUT 11/05/21 11/05/21 11/04/21 History hum U-500 conc BEDTIME (Humulin R U-500 (Conc) Insulin Kwikpen) insulin regular 85 unit SUBCUT 11/05/21 11/05/21 11/05/21 History hum U-500 conc DAILY (Humulin R U-500 (Conc) Insulin Kwikpen) Physical Exam Verdana 4l Vital Signs and Narrative: Verdana 4d Verdana 4d Vital Signs: Verdana 4d Verdana 4Bd Last Vital Signs Verdana 4d 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 Marketing 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 4d Field Marketing Manager New 4d Temp 98.4 F 11/05/21 07:35 Field Marketing Manager New 4d Pulse 105 H 11/05/21 11:25 Field Marketing Manager NewNew 4d Resp 20 11/05/21 11:25 BP 136/75 11/05/21 11:25 Pulse Ox 93 11/05/21 11:25 BMI result Body Mass Index 40.1 Appearing in no acute distress head is normocephalic atraumatic eyes pupils are PERRLA sclera is anicteric mouth throat mucous membranes are intact and moist neck is supple no lymphadenopathy, no JVD noted lung sounds are clear to auscultation heart regular rate rhythm, clear S1, S2 positive bowel sounds, abdomen is soft, nontender neuro patient is alert x3, no focal deficits Results Labs CBC and Chem 7: 11/05/21 09:17 11/05/21 09:17 Labs: Laboratory Results - last 24 hr 11/05/21 11/05/21 11/05/21 09:17 09:17 09:17 MCV 80.4 MCH 25.7 L MCHC 32.0 RDW 13.3 Plt Count 454 H D MPV 10.3 Immature Gran % (Auto) Cancelled Neut % (Auto) Cancelled Lymph % (Auto) Cancelled [place] % (Auto) Cancelled Eos % (Auto) Cancelled Baso % (Auto) Cancelled Lymph # (Auto) Cancelled [place] # (Auto) Cancelled Eos # (Auto) Cancelled Baso # (Auto) Cancelled Abs Immat Gran (auto) Cancelled Absolute Neuts (auto) Cancelled Absolute Nucleated RBC 0.020 H Nucleated RBC % (auto) 0.2 Neutrophils % (Manual) 59 Band Neutrophils % 14 H Lymphocytes % (Manual) 13 L Atypical Lymphs % (Man) 4 Monocytes % (Manual) 7 Metamyelocytes % 3 Abs Neuts (Manual) 6.2 Lymphocytes # (Manual) 1.1 L Atyp Lymphs # (Manual) 0.3 Monocytes # (Manual) 0.6 Metamyelocytes # 0.3 Nucleated RBCs 1 H Platelet Estimate INCREASED Plt Morphology Comment NORMAL RBC Morphology NORMAL Polychromasia 1+ (0-2) Microcytosis 1+ (5-14) Schistocytes 1+ (0-2) PT INR APTT D-Dimer High Sensitivty Anion Gap 15 Estim Creat Clear Calc 115.9 Estimated GFR > 60 Random Glucose 96 D Lactic Acid Calcium 8.7 D Magnesium 2.3 Total Bilirubin 1.7 H Direct Bilirubin 0.8 H AST 125 H ALT 101 H Alkaline Phosphatase 393 H D Troponin I High Sens Total Protein 6.8 Albumin 3.5 COVID-19 (B[place]) Negative COVID-19 Clin Com See Note 11/05/21 11/05/21 11/05/21 09:17 12:13 12:13 MCV MCH MCHC RDW Plt Count MPV Immature Gran % (Auto) Neut % (Auto) Lymph % (Auto) [place] % (Auto) Eos % (Auto) Baso % (Auto) Lymph # (Auto) [place] # (Auto) Eos # (Auto) Baso # (Auto) Abs Immat Gran (auto) Absolute Neuts (auto) Absolute Nucleated RBC Nucleated RBC % (auto) Neutrophils % (Manual) Band Neutrophils % Lymphocytes % (Manual) Atypical Lymphs % (Man) Monocytes % (Manual) Metamyelocytes % Abs Neuts (Manual) Lymphocytes # (Manual) Atyp Lymphs # (Manual) Monocytes # (Manual) Metamyelocytes # Nucleated RBCs Platelet Estimate Plt Morphology Comment RBC Morphology Polychromasia Microcytosis Schistocytes PT 16.1 H INR 1.4 H APTT 39.6 H D-Dimer High Sensitivty 644 Anion Gap Estim Creat Clear Calc Estimated GFR Random Glucose Lactic Acid 0.8 Calcium Magnesium Total Bilirubin Direct Bilirubin AST ALT Alkaline Phosphatase Troponin I High Sens 5.0 Total Protein Albumin COVID-19 ([place]) COVID-19 Clin Com Imaging Radiologist's Impressions: Impressions Chest X-Ray 11/05/21 09:27 IMPRESSION: Low lung volumes and bilateral peripheral infiltrates. Findings are questionable for Covid pneumonia. Abdomen Ultrasound 11/05/21 10:41 IMPRESSION: Echogenic liver probably representing fatty infiltration. Nonvisualization of the pancreas. Assessment and Plan (1) Acute and chronic respiratory failure with hypoxia: Status: Acute (2) Pneumonia due to 2019 novel coronavirus: Status: Acute (3) Elevated liver function tests: Status: Acute (4) Diabetes type 2, uncontrolled: Status: Acute 41-year-old man admitted with COVID pneumonia with hypoxia Acute hypoxic respiratory failure secondary to COVID Will treat with IV Decadron for total of 10 days Supplemental oxygen as needed Id consult Transaminitis. Likely related to viral syndrome Trend Diabetes mellitus Sliding scale, ADA diet Hyperlipidemia Continue aspirin and statin DVT prophylaxis with Lovenox Attending Dr. Marrero Full code Quality Stroke Does the patient have a stroke diagnosis?: No VTE Prior VTE?: No VTE Risk Level:: Medical - moderate - high VTE Device Contraindication: Treatment Not Indicated VTE Drug Contraindication: N/A - Med Ordered
[2021-11-05 13:35] LABS: Lactate Dehydrogenase 953 U/L (118-273)
[2021-11-05] MEDS: Enoxaparin Sodium 40 MG/0.4 ML SYRINGE SUBCUT (13:42)
--- NOTE | 2021-11-05 13:45 | PC.NURSE ---
hospitalist at bedside for admission eval. medicated per emar. tolerting po w/o issue.
--- NOTE | 2021-11-05 13:54 | PHA.MEDREC ---
Pharmacy Consult ? Medication Reconciliation Pharmacy has completed the medication reconciliation. Spoke with patient in ED. He states he has not taken atorvastatin, lisinopril or aspririn in a few months.
[2021-11-05 14:32] LABS: Ferritin 2451 ng/mL (20-250)
[2021-11-05 16:43] LABS: Glucose, Whole Blood 129 mg/dL (60-115)
[2021-11-05] MEDS: 0.9 % Sodium Chloride Flush 3 ML SYRINGE IVFLUSH (17:39)
--- NOTE | 2021-11-05 18:32 | PC.NURSE ---
Patient alert and oriented x 3. ambulates independently. Patient c/o abdominal and sob checked oxygen saturation 87% on room air applied 2l nasal cannula with increase in oxygen to 93%. Patient had abdominal ultrasound and CTA. Started on lovenox. Will continue to monitor.
[2021-11-05 21:58] LABS: Glucose, Whole Blood 275 mg/dL (60-115)
[2021-11-05] MEDS: Insulin Lispro 100 UNIT/ML 3 ML VIAL SUBCUT (22:06)
--- NOTE | 2021-11-05 23:01 | P.CNID_ITS ---
History of Present Illness Data of Consult Service Date: 11/05/21 Requesting physician: Cyndee Uribe Primary Care Provider: Enrique Trent NP HPI Reason for consult: COVID He presents to hospital with malaise,weakness and diarrhea as well as nausea and vomiting. 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 Non-adherence to medical treatment Non-proliferative diabetic retinopathy, moderate, both eyes Obesity (BMI 30-39.9) Vitamin D deficiency Family History Family History Father Diabetes mellitus Mother Diabetes mellitus Paternal Grandfather Diabetes mellitus Maternal Grandmother Diabetes mellitus Family history: reviewed and not pertinent Surgical History Surgical History No pertinent past surgical history Social History Social History Household Members: Spouse and Children Alcohol intake: never Patient Tobacco Use Status: Former Tobacco user Years Smoked: 21 years Smoked in Last 30 Days: No Use of substances other than those prescribed or required for medical reasons: No Substance Use Type: Marijuana Advance Directives: No Advance Directives Information Provided: No Meds Allergies Allergy/AdvReac Type Severity Reaction Status Date / Time No Known Allergies Allergy Unverified 08/16/21 12:57 Active Medications: Current Medications Acetaminophen (Acetaminophen 325 Mg Tablet) 650 mg PO Q6H PRN PRN Reason: Pain, Mild (Pain Scale 1-3) Dexamethasone Sodium Phosphate (Dexamethasone Sod Phosphate 4 Mg/Ml Vial) 6 mg IVPUSH DAILY DESHAUN Stop: 11/14/21 09:01 Dextrose (Dextrose 50 % 25 Gm/50 Ml Vial) 25 gm IVPUSH Q15M PRN; Protocol PRN Reason: per Hypoglycemia Standing Ord. Enoxaparin Sodium (Enoxaparin Sodium 40 Mg/0.4 Ml Syringe) 40 mg SUBCUT Q24H DESHAUN Last Admin: 11/05/21 13:42 Dose: 40 mg Documented by: Fenofibrate (Fenofibrate 160 Mg Tablet) 145 mg PO DAILY [facility] Glucose (Glucose Gel 15 Gm Gel..Gram.) 15 gm PO Q15M PRN; Protocol PRN Reason: per Hypoglycemia Standing Ord. Insulin Human Lispro (Insulin Lispro 100 Unit/Ml 3 Ml Vial) 0 unit SUBCUT QIDACHS [facility]; Protocol Last Admin: 11/05/21 22:06 Dose: 6 unit Documented by: Ondansetron HCl (Ondansetron Hcl 4 Mg/2 Ml Vial) 4 mg IVPUSH Q8H PRN PRN Reason: Nausea and Vomiting Pharmacy Consult (Consult Rx Perform Med Rec) 1 each MISCELLANE ONCE PRN PRN Reason: Consult order Sodium Chloride (0.9 % Sodium Chloride Flush 3 Ml Syringe) [facility] Last Admin: 11/05/21 17:39 Dose: 3 ml Documented by: Vitamin D (Cholecalciferol (Vitamin D3) 25 Mcg Tablet) 125 mcg PO DAILY [facility] Home Medications Medication Instructions Recorded Confirmed Last Taken Type insulin regular hum U-500 conc 65 unit SUBCUT BEDTIME 11/05/21 11/05/21 11/04/21 History (Humulin R U-500 (Conc) Insulin Kwikpen) insulin regular hum U-500 conc 85 unit SUBCUT DAILY 11/05/21 11/05/21 11/05/21 History (Humulin R U-500 (Conc) Insulin Kwikpen) Physical Exam Vital Signs: Vital Signs: Last Vital Signs Temp 98.4 F 11/05/21 07:35 Pulse 105 H 11/05/21 11:25 Resp 20 11/05/21 11:25 BP 136/75 11/05/21 11:25 Pulse Ox 93 11/05/21 11:25 BMI result Body Mass Index 40.1 Const: General: cooperative Orientation/consciousness: patient oriented x3 HENMT: Head: Yes normal to inspection Eyes: General: appearance normal, both eyes and all related structures Resp: Effort & Inspection: normal respiratory effort Cardio: Rate: regular rate Rhythm: regular rhythm GI: Palpation (GI): Soft to palpation and nontender Skin: General skin exam: no rashes or lesions noted Neuro: General: patient oriented x3 Results Labs CBC & Chem 7: 11/05/21 09:17 11/05/21 09:17 Labs: Short CBC 11/05/21 Range/Units 09:17 WBC 8.5 (4.8-10.8) X10*3/uL Hgb 10.2 L (14.0-18.0) g/dl Hct 31.9 L (42.0-52.0) % Plt Count 454 H D (160-400) X10*3/uL BMP 11/05/21 09:17 Sodium 136 Potassium 4.3 Chloride 100 Carbon Dioxide 25 BUN 14 Creatinine 0.98 Calcium 8.7 D Liver Function 11/05/21 Range/Units 09:17 Total Bilirubin 1.7 H (0.0-1.0) mg/dL Direct Bilirubin 0.8 H (0.0-0.5) mg/dL AST 125 H (5-37) U/L ALT 101 H (0-40) U/L Alkaline Phosphatase 393 H D (39-117) U/L Albumin 3.5 (3.5-5.0) g/dL Assessment and Plan (1) Acute and chronic respiratory failure with hypoxia: Status: Acute He has symptoms seven days He has no real hypoxia He has GI complaints (2) Pneumonia due to 2019 novel coronavirus: Status: Acute Stop steroids tomorrow as long as no hypoxia (oxygen less than 93% RA) No antibiotics necessary at this time but watch blood cultures
[2021-11-06] VITALS (8 sets, daily range): BP systolic 119–171; BP diastolic 60–104; PULSE 98–111; RESP 16–20; TEMP 36.6–37.4; O2SAT 90–93; BMI 42.5
[2021-11-06 06:40] LABS: Hematocrit 27.8 % (42.0-52.0); Hemoglobin 8.8 g/dl (14.0-18.0); Mean Corpuscular HGB Conc 31.7 g/dl (31.0-36.0); Mean Corpuscular Hemoglobin 25.7 pg (27.0-33.0); Mean Platelet Volume 10.6 fL (9.4-12.4); Platelet Count 504 X10*3/uL (160-400); Red Blood Count 3.43 X10*6/uL (4.60-5.80); Red Cell Distribution Width 13.3 % (11.0-16.0); White Blood Count 7.8 X10*3/uL (4.8-10.8)
[2021-11-06 06:47] LABS: Lactate Dehydrogenase 629 U/L (118-273)
[2021-11-06 06:49] LABS: Anion Gap 14 (12-20); Blood Urea Nitrogen 19 mg/dL (9-16); Calcium 8.6 mg/dL (8.4-10.2); Carbon Dioxide 23 mmol/L (22-29); Chloride 103 mmol/L (96-108); Creatinine Clr Calc Pharmacy 120.7; Estimated Glomerular Filt Rate > 60; Glucose Random 268 mg/dL (60-115); Potassium 4.7 mmol/L (3.3-5.1); Sodium 135 mmol/L (135-145)
[2021-11-06 07:17] LABS: Band Neutrophils Percent 9 % (3-5); Lymphocytes Absolute Manual 1.3 X10*3/uL (1.2-4.9); Lymphocytes Percent Manual 17 % (20-40); Metamyelocytes Absolute 0.2 X10*3/uL; Metamyelocytes Percent 2 %; Monocytes Absolute Manual 0.8 X10*3/uL (0.1-1.2); Monocytes Percent Manual 10 % (2-11); Myelocytes Absolute 0.1 X10*/uL; Myelocytes Percent 1 %; Neutrophils Absolute Manual 5.5 X10*3/uL (2.0-8.3); Neutrophils Percent Manual 61 % (45-73)
[2021-11-06 07:18] LABS: Hypochromasia 2+ (15-30) /OIF; Platelet Estimate INCREASED (NORMAL); Platelet Morphology Comment NORMAL; Polychromasia 1+ (0-2) /OIF; RBC Morphology NOTED
[2021-11-06 07:31] LABS: Procalcitonin 0.25 ng/mL
[2021-11-06] MEDS: 0.9 % Sodium Chloride Flush 3 ML SYRINGE IVFLUSH ×3 (07:54→22:03)
[2021-11-06 08:02] LABS: Ferritin 2076 ng/mL (20-250)
[2021-11-06] MEDS: Insulin Lispro 100 UNIT/ML 3 ML VIAL SUBCUT ×4 (08:54→22:03)
[2021-11-06] MEDS: dexAMETHasone sod phosphate 4 MG/ML VIAL 6 MG IVPUSH (08:56)
[2021-11-06] MEDS: Cholecalciferol (Vitamin D3) 25 MCG TABLET 125 MCG PO (08:56)
[2021-11-06] MEDS: Fenofibrate 160 MG TABLET 145 MG PO (08:56)
--- NOTE | 2021-11-06 09:00 | P.PNIM_ITS ---
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 Electroslag New 4d Welding Machine Operator Electroslag New 4d Temp 98.5 F 11/06/21 08:00 Welding Machine Operator Electroslag New 4d Pulse 101 H 11/06/21 08:00 Welding Machine Operator Electroslag NewNew 4d Resp 20 11/06/21 08:00 BP 119/60 11/06/21 08:00 Pulse Ox 93 11/06/21 08:00 BMI result Body Mass Index 42.5 Appearing in no acute distress lung sounds normal expansion heart regular rate rhythm, clear S1, S2 positive bowel sounds, abdomen is soft, nontender neuro patient is alert x3, no focal deficits Objective Data Active Medications Acetaminophen (Acetaminophen 325 Mg Tablet) 650 mg PO Q6H PRN PRN Reason: Pain, Mild (Pain Scale 1-3) Dexamethasone Sodium Phosphate (Dexamethasone Sod Phosphate 4 Mg/Ml Vial) 6 mg IVPUSH DAILY [facility] Stop: 11/14/21 09:01 Last Admin: 11/06/21 08:56 Dose: 6 mg Documented by: MIKEY Dextrose (Dextrose 50 % 25 Gm/50 Ml Vial) 25 gm IVPUSH Q15M PRN; Protocol PRN Reason: per Hypoglycemia Standing Ord. Enoxaparin Sodium (Enoxaparin Sodium 40 Mg/0.4 Ml Syringe) 40 mg SUBCUT Q24H [facility] Last Admin: 11/05/21 13:42 Dose: 40 mg Documented by: RAFAELA Fenofibrate (Fenofibrate 160 Mg Tablet) 145 mg PO DAILY [facility] Last Admin: 11/06/21 08:56 Dose: 145 mg Documented by: MIKEY Glucose (Glucose Gel 15 Gm Gel..Gram.) 15 gm PO Q15M PRN; Protocol PRN Reason: per Hypoglycemia Standing Ord. Insulin Human Lispro (Insulin Lispro 100 Unit/Ml 3 Ml Vial) 0 unit SUBCUT QIDACHS [facility]; Protocol Last Admin: 11/06/21 08:54 Dose: 4 unit Documented by: MIKEY Lisinopril (Lisinopril 5 Mg Tablet) 5 mg PO DAILY [facility]; Protocol Ondansetron HCl (Ondansetron Hcl 4 Mg/2 Ml Vial) 4 mg IVPUSH Q8H PRN PRN Reason: Nausea and Vomiting Pharmacy Consult (Consult Rx Perform Med Rec) 1 each MISCELLANE ONCE PRN PRN Reason: Consult order Sodium Chloride (0.9 % Sodium Chloride Flush 3 Ml Syringe) 3 ml IVFLUSH QSHIFT [facility] Last Admin: 11/06/21 07:54 Dose: 3 ml Documented by: MIKEY Vitamin D (Cholecalciferol (Vitamin D3) 25 Mcg Tablet) 125 mcg PO DAILY [facility] Last Admin: 11/06/21 08:56 Dose: 125 mcg Documented by: MIKEY Labs CBC & Chem 7: 11/06/21 06:15 11/06/21 06:15 Labs: Laboratory Results - last 24 hr 11/05/21 11/05/21 11/05/21 09:17 09:17 09:17 MCV 80.4 MCH 25.7 L MCHC 32.0 RDW 13.3 Plt Count 454 H D MPV 10.3 Immature Gran % (Auto) Cancelled Neut % (Auto) Cancelled Lymph % (Auto) Cancelled Garrett % (Auto) Cancelled Eos % (Auto) Cancelled Baso % (Auto) Cancelled Lymph # (Auto) Cancelled Garrett # (Auto) Cancelled Eos # (Auto) Cancelled Baso # (Auto) Cancelled Abs Immat Gran (auto) Cancelled Absolute Neuts (auto) Cancelled Absolute Nucleated RBC 0.020 H Nucleated RBC % (auto) 0.2 Neutrophils % (Manual) 59 Band Neutrophils % 14 H Lymphocytes % (Manual) 13 L Atypical Lymphs % (Man) 4 Monocytes % (Manual) 7 Metamyelocytes % 3 Myelocytes % Abs Neuts (Manual) 6.2 Lymphocytes # (Manual) 1.1 L Atyp Lymphs # (Manual) 0.3 Monocytes # (Manual) 0.6 Metamyelocytes # 0.3 Myelocytes # Nucleated RBCs 1 H Platelet Estimate INCREASED Plt Morphology Comment NORMAL RBC Morphology NORMAL Polychromasia 1+ (0-2) Hypochromasia Microcytosis 1+ (5-14) Schistocytes 1+ (0-2) PT INR APTT D-Dimer High Sensitivty Anion Gap 15 Estim Creat Clear Calc 115.9 Estimated GFR > 60 POC Glucose Random Glucose 96 D Lactic Acid Calcium 8.7 D Magnesium 2.3 Ferritin 2451 H Total Bilirubin 1.7 H Direct Bilirubin 0.8 H AST 125 H ALT 101 H Alkaline Phosphatase 393 H D Lactate Dehydrogenase 953 H Troponin I High Sens Total Protein 6.8 Albumin 3.5 Procalcitonin COVID-19 ([facility]) Negative COVID-19 Clin Com See Note 11/05/21 11/05/21 11/05/21 09:17 12:13 12:13 MCV MCH MCHC RDW Plt Count MPV Immature Gran % (Auto) Neut % (Auto) Lymph % (Auto) Garrett % (Auto) Eos % (Auto) Baso % (Auto) Lymph # (Auto) Garrett # (Auto) Eos # (Auto) Baso # (Auto) Abs Immat Gran (auto) Absolute Neuts (auto) Absolute Nucleated RBC Nucleated RBC % (auto) Neutrophils % (Manual) Band Neutrophils % Lymphocytes % (Manual) Atypical Lymphs % (Man) Monocytes % (Manual) Metamyelocytes % Myelocytes % Abs Neuts (Manual) Lymphocytes # (Manual) Atyp Lymphs # (Manual) Monocytes # (Manual) Metamyelocytes # Myelocytes # Nucleated RBCs Platelet Estimate Plt Morphology Comment RBC Morphology Polychromasia Hypochromasia Microcytosis Schistocytes PT 16.1 H INR 1.4 H APTT 39.6 H D-Dimer High Sensitivty 644 Anion Gap Estim Creat Clear Calc Estimated GFR POC Glucose Random Glucose Lactic Acid 0.8 Calcium Magnesium Ferritin Total Bilirubin Direct Bilirubin AST ALT Alkaline Phosphatase Lactate Dehydrogenase Troponin I High Sens 5.0 Total Protein Albumin Procalcitonin COVID-19 ([facility]) COVID-19 Clin Com 11/05/21 11/05/21 11/06/21 16:38 21:53 06:15 MCV 81.0 MCH 25.7 L MCHC 31.7 RDW 13.3 Plt Count 504 H MPV 10.6 Immature Gran % (Auto) Cancelled Neut % (Auto) Cancelled Lymph % (Auto) Cancelled Garrett % (Auto) Cancelled Eos % (Auto) Cancelled Baso % (Auto) Cancelled Lymph # (Auto) Cancelled Garrett # (Auto) Cancelled Eos # (Auto) Cancelled Baso # (Auto) Cancelled Abs Immat Gran (auto) Cancelled Absolute Neuts (auto) Cancelled Absolute Nucleated RBC 0.000 Nucleated RBC % (auto) 0.0 Neutrophils % (Manual) 61 Band Neutrophils % 9 H Lymphocytes % (Manual) 17 L Atypical Lymphs % (Man) Monocytes % (Manual) 10 Metamyelocytes % 2 Myelocytes % 1 Abs Neuts (Manual) 5.5 Lymphocytes # (Manual) 1.3 Atyp Lymphs # (Manual) Monocytes # (Manual) 0.8 Metamyelocytes # 0.2 Myelocytes # 0.1 Nucleated RBCs Platelet Estimate INCREASED Plt Morphology Comment NORMAL RBC Morphology NOTED Polychromasia 1+ (0-2) Hypochromasia 2+ (15-30) Microcytosis Schistocytes PT INR APTT D-Dimer High Sensitivty Anion Gap Estim Creat Clear Calc Estimated GFR POC Glucose 129 H 275 H Random Glucose Lactic Acid Calcium Magnesium Ferritin Total Bilirubin Direct Bilirubin AST ALT Alkaline Phosphatase Lactate Dehydrogenase Troponin I High Sens Total Protein Albumin Procalcitonin COVID-19 ([facility]) COVID-19 Clin Com 11/06/21 11/06/21 11/06/21 06:15 06:15 06:15 MCV MCH MCHC RDW Plt Count MPV Immature Gran % (Auto) Neut % (Auto) Lymph % (Auto) Garrett % (Auto) Eos % (Auto) Baso % (Auto) Lymph # (Auto) Garrett # (Auto) Eos # (Auto) Baso # (Auto) Abs Immat Gran (auto) Absolute Neuts (auto) Absolute Nucleated RBC Nucleated RBC % (auto) Neutrophils % (Manual) Band Neutrophils % Lymphocytes % (Manual) Atypical Lymphs % (Man) Monocytes % (Manual) Metamyelocytes % Myelocytes % Abs Neuts (Manual) Lymphocytes # (Manual) Atyp Lymphs # (Manual) Monocytes # (Manual) Metamyelocytes # Myelocytes # Nucleated RBCs Platelet Estimate Plt Morphology Comment RBC Morphology Polychromasia Hypochromasia Microcytosis Schistocytes PT INR APTT D-Dimer High Sensitivty Anion Gap 14 Estim Creat Clear Calc 120.7 Estimated GFR > 60 POC Glucose Random Glucose 268 H D Lactic Acid Calcium 8.6 Magnesium Ferritin 2076 H Total Bilirubin Direct Bilirubin AST ALT Alkaline Phosphatase Lactate Dehydrogenase 629 H Troponin I High Sens Total Protein Albumin Procalcitonin 0.25 COVID-19 ([facility]) COVID-19 Clin Com Assessment and Plan (1) Pneumonia due to 2019 novel coronavirus: Status: Acute (2) Elevated liver function tests: Status: Acute (3) Diabetes type 2, uncontrolled: Status: Acute Assessment and Plan: 41-year-old man admitted with COVID pneumonia with hypoxia Acute hypoxic respiratory failure secondary to COVID See and evaluated by Infectious Disease with recommendation to stop IV Decadron due to no hypoxia LDH, ferritin trending down Supplemental oxygen as needed no need for antibiotics Transaminitis. Likely related to viral syndrome Trend Diabetes mellitus Sliding scale, ADA diet Hyperlipidemia Continue aspirin and statin DVT prophylaxis with Lovenox Attending Dr. Marrero Full code Quality Stroke Does the patient have a stroke diagnosis?: No VTE Prior VTE?: No VTE Risk Level:: Medical - moderate - high VTE Device Contraindication: Treatment Not Indicated VTE Drug Contraindication: N/A - Med Ordered
[2021-11-06 09:50] LABS: Glucose, Whole Blood 221 mg/dL (60-115)
[2021-11-06 11:39] LABS: Glucose, Whole Blood 327 mg/dL (60-115)
--- NOTE | 2021-11-06 11:57 | MHC.CM.PN ---
Patient lives at home w/CARLOS ALBERTO, Sammi and 3 children; 11, 13,23. He drives, is fully independent, no prior services or equipment. SI drove him to the hospital. At time of D/C, Sammi will transport him home.
[2021-11-06] MEDS: Enoxaparin Sodium 40 MG/0.4 ML SYRINGE SUBCUT (13:26)
--- NOTE | 2021-11-06 13:50 | PC.NURSE ---
Patient alert and oriented x3, ambulated in ching today. 02 sat 95% on RA before ambulation, de-sat to 90% during ambulation.
--- NOTE | 2021-11-06 16:33 | PC.NURSE ---
Ambulated patient in ching again, 02 sats 92% at rest, sats down to 88% RA with ambulation, sats back up to 92% within a couple of minutes at rest. Patient back in recliner.
[2021-11-06 16:35] LABS: Glucose, Whole Blood 374 mg/dL (60-115)
[2021-11-06 21:06] LABS: Glucose, Whole Blood 361 mg/dL (60-115)
[2021-11-07 04:00] VITALS: BP 159/79; PULSE 105; RESP 18; TEMP 37.1; O2SAT 92
[2021-11-07 07:26] VITALS: BP 141/92; PULSE 101; RESP 18; TEMP 36.2; O2SAT 93
[2021-11-07 07:32] LABS: Glucose, Whole Blood 309 mg/dL (60-115)
[2021-11-07] MEDS: Insulin Lispro 100 UNIT/ML 3 ML VIAL SUBCUT ×2 (08:16→11:34)
[2021-11-07] MEDS: lisinopriL 5 MG TABLET PO (08:18)
[2021-11-07] MEDS: dexAMETHasone sod phosphate 4 MG/ML VIAL 6 MG IVPUSH (08:18)
[2021-11-07] MEDS: Fenofibrate 160 MG TABLET 145 MG PO (08:18)
[2021-11-07] MEDS: Cholecalciferol (Vitamin D3) 25 MCG TABLET 125 MCG PO (08:20)
[2021-11-07] MEDS: 0.9 % Sodium Chloride Flush 3 ML SYRINGE IVFLUSH (08:21)
[2021-11-07 09:02] LABS: Hematocrit 29.5 % (42.0-52.0); Mean Corpuscular HGB Conc 30.5 g/dl (31.0-36.0); Mean Corpuscular Hemoglobin 25.1 pg (27.0-33.0); Mean Corpuscular Volume 82.4 fL (80.0-98.0); Mean Platelet Volume 10.4 fL (9.4-12.4); NRBC Pct Auto 0.2 /100WBC (0.0-0.2); Platelet Count 633 X10*3/uL (160-400); Red Blood Count 3.58 X10*6/uL (4.60-5.80); Red Cell Distribution Width 13.3 % (11.0-16.0); White Blood Count 11.3 X10*3/uL (4.8-10.8)
--- NOTE | 2021-11-07 09:17 | PM.DS ---
DS: Providers Provider Date of Service: 11/07/21 <Cyndee Uribe NP - Last Filed: 11/07/21 11:47> Date of admission: 11/05/21 13:06 <Cyndee Uribe NP - Last Filed: 11/07/21 11:47> Primary care physician: Enrique Trent NP <Cyndee Uribe NP - Last Filed: 11/07/21 11:47> Consults: 11/05/21 13:09 Consult to Infectious Diseases Routine Consulting Provider: Daisy Acosta Reason for consultation: covid 19, hypoxia Has provider been notified: No 11/07/21 07:57 Consult to Hematology / Oncology Routine Consulting Provider: Dell Crandall Reason for consultation: thrombocytosis and anemia Has provider been notified: No <Cyndee Uribe NP - Last Filed: 11/07/21 11:47> Attending physician on discharge: Tom Parker <Cyndee Uribe NP - Last Filed: 11/07/21 11:47> Discharging clinician: Cyndee Uribe <Cyndee Uribe NP - Last Filed: 11/07/21 11:47> DS: Diagnosis Discharge Diagnosis (1) Pneumonia due to 2019 novel coronavirus: Status: Acute <Cyndee Uribe NP - Last Filed: 11/07/21 11:47> (2) Elevated liver function tests: Status: Acute <Cyndee Uribe NP - Last Filed: 11/07/21 11:47> (3) Diabetes type 2, uncontrolled: Status: Acute <Cyndee Uribe NP - Last Filed: 11/07/21 11:47> DS: Summary Hospital Course Hospital Course: 41 year old man presenting with increased shortness of breath worsening over the last few days. ? He reports feeling unwell since after Thanksgiving. He reported that he is on vaccinated and he believes that his son may have parotid from high school.? His whole family had been sick everyone negative for COVID except him.? He initially presented to the ER on October 29 and was positive for COVID-19.? He was discharged home.? Over the last week he had developed some diarrhea and reported yesterday that he had a syncopal episode while in the bathroom.? He reported that everything went white .? He woke up and was able to get himself up and called somebody to bring him to the hospital.? His liver enzymes were noted to be elevated with total bili of 1.7, LDH 953.? No fever noted.? He did have an oxygen saturation of 88% and was placed on 2 liters.? In the ER, he was given a dose of ceftriaxone? and 1 L of IV fluids.? He will be admitted for further management and treatment of acute hypoxic respiratory failure secondary to COVID-19. Acute hypoxic respiratory failure secondary to COVID . Patient was initially hypoxic with oxygen saturation in the 80s, he initially required a small amount of oxygen however over the last 2 days has not required any. He has been on IV Decadron. He has not had any cough with phlegm. He will be discharged home with no oxygen and continue 8 more days of oral Decadron. He was seen and evaluated by Infectious Disease while inpatient. He did not require any antibiotics. Transaminitis. Secondary to viral COVID. Trended down. Reactive thrombocytosis. Secondary To COVID-19. Discussed with Hematology no further workup needed at this time patient may follow up with his primary care provider for future lab work. Hypertension. Patient with history of high blood pressure but not on any medications. Started on lisinopril 5 mg daily. Follow-up with primary care provider for medication management. <Cyndee Uribe NP - Last Filed: 11/07/21 11:47> Time Spent with Patient Time attestation: Total time spent providing and/or coordinating discharge services: <Cyndee Uribe NP - Last Filed: 11/07/21 11:47> Discharge coordination time: Greater than 30 minutes <Cyndee Uribe NP - Last Filed: 11/07/21 11:47> Quality: Stroke Does the patient have a stroke diagnosis?: No <Cyndee Uribe NP - Last Filed: 11/07/21 11:47> Physical Exam Vital Signs: Vital Signs: Last Vital Signs Temp 97.2 F 11/07/21 07:26 Pulse 101 H 11/07/21 07:26 Resp 18 11/07/21 07:26 BP 141/92 H 11/07/21 07:26 Pulse Ox 93 11/07/21 07:26 BMI result Body Mass Index 42.5 <Cyndee Uribe NP - Last Filed: 11/07/21 11:47> Appearing in no acute distress head is normocephalic atraumatic eyes pupils are PERRLA sclera is anicteric mouth throat mucous membranes are intact and moist neck is supple no lymphadenopathy, no JVD noted lung sounds are clear to auscultation heart regular rate rhythm, clear S1, S2 positive bowel sounds, abdomen is soft, nontender neuro patient is alert x3, no focal deficits <Cyndee Uribe NP - Last Filed: 11/07/21 11:47> DS: Data Data Completed and Pending Labs on day of discharge: Laboratory Results - last 24 hr 11/06/21 11/06/21 11/06/21 08:09 11:29 16:25 WBC RBC Hgb Hct MCV MCH MCHC RDW Plt Count MPV Absolute Nucleated RBC Nucleated RBC % (auto) POC Glucose 221 H 327 H 374 H* 11/06/21 11/07/21 11/07/21 21:02 07:28 08:40 WBC 11.3 H RBC 3.58 L Hgb 9.0 L Hct 29.5 L MCV 82.4 MCH 25.1 L MCHC 30.5 L RDW 13.3 Plt Count 633 H D MPV 10.4 Absolute Nucleated RBC 0.020 H Nucleated RBC % (auto) 0.2 POC Glucose 361 H* 309 H Preliminary micro results at discharge 11/05/21 13:35 Blood Culture - Preliminary Blood - Venous No growth after 24 hours. 11/05/21 13:35 Blood Culture - Preliminary Blood - Venous No growth after 24 hours. <Cyndee Uribe NP - Last Filed: 11/07/21 11:47> Discharge Plan Discharge Anticipated Discharge Date/Time: 11/07/21 11:41 <Cyndee Uribe NP - Last Filed: 11/07/21 11:47> Patient Disposition: Home, Self-Care <Cyndee Uribe NP - Last Filed: 11/07/21 11:47> Discharge Diagnosis: Covid 19 <Cyndee Uribe NP - Last Filed: 11/07/21 11:47> Covid 19 <Tom Parker MD - Last Filed: 11/07/21 11:54> Referrals: Enrique Trent NP [Primary Care Provider] - 1 Week <Cyndee Uribe NP - Last Filed: 11/07/21 11:47> Discharge Medications: New lisinopril 5 mg Tablet 5 mg PO DAILY Qty: 30 RF: 0 dexamethasone [Decadron] 6 mg tablet 6 mg PO DAILY Qty: 8 RF: 0 Continued (DME) FreeStyle Kavitha 14 Day [place] Misc See Rx Instructions miscellaneous .MEDSUPPLY Qty: 1 RF: 0 (DME) FreeStyle Kavitha 14 Day Sensor Kit See Rx Instructions .MEDSUPPLY Qty: 2 RF: 11 Humulin R U-500 (Conc) Kwikpen 500 unit/mL (3 mL) insulin pen 65 unit subcut BEDTIME RF: 0 Humulin R U-500 (Conc) Kwikpen 500 unit/mL (3 mL) insulin pen 85 unit subcut DAILY RF: 0 (DME) pen needle, diabetic [BD Cindy 2nd Gen Pen Needle] 32 gauge x 5/32 needle See Rx Instructions .MEDSUPPLY Qty: 3 RF: 4 (DME) pen needle, diabetic [BD Cindy 2nd Gen Pen Needle] 32 gauge x 5/32 needle See Rx Instructions .MEDSUPPLY Qty: 100 RF: 4 (DME) FreeStyle Lite Strips Strip See Rx Instructions miscellaneous .MEDSUPPLY Qty: 120 RF: 5 (DME) blood-glucose meter [FreeStyle Lite Meter] Kit See Rx Instructions miscellaneous .MEDSUPPLY Qty: 1 RF: 0 (DME) lancets [FreeStyle Lancets] 28 gauge misc See Rx Instructions .MEDSUPPLY Qty: 120 RF: 5 omega-3 fatty acids [Fish Oil Concentrate] 1,000 mg capsule 1,000 mg PO BID 30 Days Qty: 60 RF: 11 cholecalciferol (vitamin D3) 125 mcg (5,000 unit) capsule 125 mcg PO DAILY 30 Days Qty: 30 RF: 11 fenofibrate nanocrystallized 145 mg tablet 145 mg PO DAILY 30 Days Qty: 30 RF: 6 <Cyndee Uribe NP - Last Filed: 11/07/21 11:47> Discharge Orders: Discharge Order (Routine); Ordered 11/07/21 Ordered By: Cyndee Uribe <Cyndee Uribe NP - Last Filed: 11/07/21 11:47> Diet: advance to usual diet <Cyndee Uribe NP - Last Filed: 11/07/21 11:47> advance to usual diet <Tom Parker MD - Last Filed: 11/07/21 11:54> Activity on Discharge: As tolerated <Cyndee Uribe NP - Last Filed: 11/07/21 11:47> As tolerated <Tom Parker MD - Last Filed: 11/07/21 11:54> Stand Alone Forms: Patient Portal Discharge page <Cyndee Uribe NP - Last Filed: 11/07/21 11:47> Care Plan Goals: Resolution of covid 19 symptoms <Cyndee Uribe NP - Last Filed: 11/07/21 11:47> Health Concerns: Covid 19 <Cyndee Uribe NP - Last Filed: 11/07/21 11:47> Plan of Treatment: Quarantine: According to the Centers for disease control. Persons with COVID-19 who have symptoms and were directed to care for themselves at home may discontinue isolation under the following conditions: -At least 10 days have passed since symptom onset and -At least 24 hours have passed since resolution of fever without the use of fever-reducing medications and -Other symptoms have improved. Safety: Wear a mask Wash your hands or use hand grid casting machine operator helper before putting on your mask. Wear your mask over your nose and mouth and secure it under your chin. Stay 6 feet away from others Inside your home: Avoid close contact with people who are sick. If possible, maintain 6 feet between the person who is sick and other household members. Outside your home: Put 6 feet of distance between yourself and people who don't live in your household. Remember that some people without symptoms may be able to spread virus. Stay at least 6 feet (about 2 arm lengths) from other people. Keeping distance from others is especially important for people who are at higher risk of getting very sick. Avoid crowds and poorly ventilated spaces Avoid indoor spaces that do not offer fresh air from the outdoors as much as possible. Wash your hands often with soap and water for at least 20 seconds especially after you have been in a public place, or after blowing your nose, coughing, or sneezing. Cover coughs and sneezes Clean high touch surfaces daily. Be alert for symptoms. Watch for fever, cough, shortness of breath, or other symptoms of COVID-19. Follow CDC guidance if symptoms develop. You have been started on a medication for your blood pressure called Lisinopril. Please take as directed and follow up with your primary care provider for medication adjustments. Take Decadron for 8 more days, this is a steroid. <Cyndee Uribe NP - Last Filed: 11/07/21 11:47> Assessment: See discharge summary Attending Attestation: I have personally seen and examined the patient independently (on the date of service as documented by NPP), reviewed the NPP history, exam and?MDM and agree with the assessment and plan as?written <Cyndee Uribe NP - Last Filed: 11/07/21 11:47>
[2021-11-07 09:19] LABS: Anion Gap 13 (12-20); Blood Urea Nitrogen 18 mg/dL (9-16); Calcium 9.3 mg/dL (8.4-10.2); Carbon Dioxide 26 mmol/L (22-29); Chloride 101 mmol/L (96-108); Creatinine Clr Calc Pharmacy 113.7; Estimated Glomerular Filt Rate > 60; Glucose Random 344 mg/dL (60-115); Iron 57 mcg/dL (45-160); Percent Iron Saturation 23 % (15-50); Sodium 135 mmol/L (135-145); Total Iron Binding Capacity 245 mcg/dL (228-428); Unsaturated Iron Binding 188 ug/dL
[2021-11-07 09:55] LABS: Alanine Aminotransferase 84 U/L (0-40); Albumin Level 3.4 g/dL (3.5-5.0); Alkaline Phosphatase 306 U/L (39-117); Aspartate Amino Transferase 51 U/L (5-37); Bilirubin Direct 0.4 mg/dL (0.0-0.5); Bilirubin Total 0.8 mg/dL (0.0-1.0); Total Protein 6.8 g/dL (6.5-8.0)
[2021-11-07 11:15] VITALS: BP 158/85; PULSE 101; RESP 18; TEMP 36.7; O2SAT 92
[2021-11-07 11:19] LABS: Glucose, Whole Blood 362 mg/dL (60-115)
--- NOTE | 2021-11-07 12:01 | MHC.CM.PN ---
Patient has been medically cleared for dc to home today, no services.
--- NOTE | 2021-11-07 13:16 | P.CNHO_ITS ---
Subjective - Subjective Chief complaint: Consult for: Thrombocytosis. Patient: new to practice Consult date: 11/07/21 Requesting Physician: Rony. Primary Care Provider: Enrique Trent NP Medical Summary: DIAGNOSIS: THROMBOCYTOSIS. HPI - Consult Narrative Reason for consult: Consult for: Thrombocytosis. Narrative: Dwayne Uribe JR is a pleasant 41 year old gentleman, who presented with increased shortness of breath worsening over the last few days. He reports feeling unwell since after Thanksgiving. He is vaccinated and he believes that his son may have covid from high school. His whole family had been sick everyone negative for COVID except him. He had initially presented on October 29 and was positive for COVID-19. He was discharged home. Over the last week he had developed some diarrhea and reported that he had a syncopal episode while in the bathroom. He reported that everything went white . He woke up and was able to get himself up and called somebody to bring him to the hospital. His liver enzymes were noted to be elevated with total bili of 1.7, LDH 953. No fever noted. He did have an oxygen saturation of 88% and was placed on 2 liters. In the ER, he was given a dose of ceftriaxone and 1 L of IV fluids. Review of Systems Denies any recent fever chills or decrease in appetite respiratory See HPI cardiovascular denied chest pain, no PND or orthopnea gastrointestinal denies any dysphagia abdominal pain nausea vomiting or diarrhea genitourinary denies any dysuria frequency or hematuria musculoskeletal denies any joint pain or swelling neuropsych denies any weakness or seizures all other systems reviewed are negative [facility] Medical History Diabetes type 2, uncontrolled Diabetic nephropathy associated with type 2 diabetes mellitus Dyslipidemia Hypertension group home (current) use of insulin Non-adherence to medical treatment Non-proliferative diabetic retinopathy, moderate, both eyes Obesity (BMI 30-39.9) Vitamin D deficiency Family History Father Diabetes mellitus Mother Diabetes mellitus Paternal Grandfather Diabetes mellitus Maternal Grandmother Diabetes mellitus Review of Systems - Constitutional Reports system reviewed and no additional complaints, except as documented - Eyes Reports system reviewed and no additional complaints, except as documented - ENT Reports system reviewed and no additional complaints, except as documented - Cardiovascular Reports system reviewed and no additional complaints, except as documented - Respiratory Reports no additional respiratory complaints - Gastrointestinal Reports system reviewed and no additional complaints, except as documented - Genitourinary Genitourinary: Reports no additional male genitourinary complaints - Musculoskeletal Reports system reviewed and no additional complaints, except as documented - Integumentary/Breasts Skin/Breast: Reports no additional skin complaints - Neurologic Reports system reviewed and no additional complaints, except as documented - Psychiatric Reports system reviewed and no additional complaints, except as documented - Endocrine Reports no additional endocrine complaints - Hematologic/Lymphatic Reports system reviewed and no additional complaints, except as documented - Allergic/Immunologic Reports system reviewed and no additional complaints, except as documented Oncology Screenings - ECOG Performance Status ECOG Performance Status: 1 [facility] Medical History: Medical History (Last Reviewed 11/06/21 @ 04:25 by Sangeeta Weir RN) Diabetes type 2, uncontrolled Diabetic nephropathy associated with type 2 diabetes mellitus Dyslipidemia Hypertension 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 Non-adherence to medical treatment Non-proliferative diabetic retinopathy, moderate, both eyes Obesity (BMI 30-39.9) Vitamin D deficiency Functional capacity: independent ambulation Patient : No Family History: Family History (Last Reviewed 11/06/21 @ 04:25 by Sangeeta Weir, ADRYAN) Father Diabetes mellitus Mother Diabetes mellitus Paternal Grandfather Diabetes mellitus Maternal Grandmother Diabetes mellitus Family history: reviewed and not pertinent Surgical History: Surgical History (Last Reviewed 11/06/21 @ 04:25 by Sangeeta Weir RN) No pertinent past surgical history Social History: Social History (Last Reviewed 11/05/21 @ 23:03 by Daisy Acosta MD) Living Situation History: Household Members: Family Housing: House Alcohol History: Alcohol intake: never Tobacco History: Patient Tobacco Use Status: Former Tobacco user Years Smoked: 21 years Substance Use History: Substance Use Type: Marijuana Occupation Assessmet: service: No Current occupational status: unemployed Home Medications and Allergies Home Medications Medication Instructions Recorded Confirmed Type insulin regular hum U-500 conc 65 unit SUBCUT BEDTIME 11/05/21 11/05/21 History (Humulin R U-500 (Conc) Insulin Kwikpen) insulin regular hum U-500 conc 85 unit SUBCUT DAILY 11/05/21 11/05/21 History (Humulin R U-500 (Conc) Insulin Kwikpen) Allergies Allergy/AdvReac Type Severity Reaction Status Date / Time No Known Allergies Allergy Unverified 09/21/21 12:57 Physical Exam Vital signs: Vital Signs Temp 98.0 F 11/07/21 11:15 Pulse 101 H 11/07/21 11:15 Resp 18 11/07/21 11:15 BP 158/85 H 11/07/21 11:15 Pulse Ox 92 11/07/21 11:15 Intake & Output 11/06/21 11/07/21 11/07/21 18:59 06:59 18:59 Intake Total 1000 / 1480 480 / 1480 Output Total 3 / 3 Balance 997 / 1477 480 / 1477 Urine Output (Average ml/kg/hr) 0.00 0.00 Intake: Intake, Oral Amount 1000 / 1480 480 / 1480 Output: Output, Urine Amount 3 / 3 Other: Meal Refused No NPO No Breakfast % Eaten 100% Lunch % Eaten 100% Dinner % Eaten 100% Number of Unmeasured Voids 1 Urine Bathroom Bathroom Urine Color Yellow Last Bowel Movement 11/05/21 Weight 119.5 kg - Constitutional Present: mild distress, moderate distress - Routine HEENT Exam Head: Present: normal inspection ENT: Present: mucous membranes moist - Routine Neck Exam Present: supple - Routine Respiratory Exam Present: decreased breath sounds, CTAB - Routine Cardiovascular Exam Cardiovascular: Present: RRR, S1, S2 - Routine Abdominal Exam Present: soft, nontender - Routine Extremities Exam Absent: clubbing, joint swelling Hem/Onc Consult Result - Labs CBC & Chem 7: 11/07/21 08:40 11/07/21 08:40 Labs: Short CBC 11/07/21 Range/Units 08:40 WBC 11.3 H (4.8-10.8) X10*3/uL Hgb 9.0 L (14.0-18.0) g/dl Hct 29.5 L (42.0-52.0) % Plt Count 633 H D (160-400) X10*3/uL BMP 11/07/21 08:40 Sodium 135 Potassium 5.0 Chloride 101 Carbon Dioxide 26 BUN 18 H Creatinine 1.03 Calcium 9.3 D Liver Function 11/07/21 Range/Units 08:40 Total Bilirubin 0.8 (0.0-1.0) mg/dL Direct Bilirubin 0.4 (0.0-0.5) mg/dL AST 51 H (5-37) U/L ALT 84 H (0-40) U/L Alkaline Phosphatase 306 H D (39-117) U/L Albumin 3.4 L (3.5-5.0) g/dL Assessment and Plan Patient Active problem list reviewed?: Yes (1) Thrombocytosis Status: Acute Assessment and plan: This is a pleasant 41-year-old gentleman who was recently diagnosed with COVID pneumonitis. He was noted to have her thrombocytosis. Serial platelet count: : 454. 11/06: 504. 11/07: 633. Differential diagnosis: 1. Reactive thrombocytosis: related to recent COVID infection, or Uron deficiency. 2. Essential thrombocytosis: PLAN: Will check iron studies: 57/245/. Check a JAK2 mutation. Will follow the trend of his platelets over time. Will consider a bone marrow exam if the platelet count does not trend down towards over the next couple weeks. If he is stable enough, he will be discharged home later today. I can follow him up as an outpatient. Thank you, Cc: Juju Uribe - Time Spent With Patient Time Spent with Patient (in minutes): 30
[2021-11-07 13:59] LABS: Lactate Dehydrogenase 481 U/L (118-273)
[2021-11-07 14:21] LABS: Ferritin 1452 ng/mL (20-250)
== END 2021-11-07 12:51 | disposition home or self-care (01) | DRG 137 ==
LOC: HO.ED 11:32 → HO.EDOVER 13:30 → HO.IMC 11-06 03:15
PROVIDERS: Internal Medicine Medical Oncology; Admitting Provider Nurse Practitioner Acute Care; Emergency Provider Emergency Medicine; PCP Nurse Practitioner Family; Visit Provider Nurse Practitioner Acute Care
DX: U07.1 COVID-19 (principal); J96.01 Acute respiratory failure with hypoxia; J12.82 Pneumonia due to coronavirus disease 2019; J96.21 Acute and chronic respiratory failure with hypoxia; E66.01 Morbid (severe) obesity due to excess calories; Z68.41 Body mass index [BMI] 40.0-44.9, adult; I10 Essential (primary) hypertension; D75.838 Other thrombocytosis; E78.5 Hyperlipidemia, unspecified; Z20.822 Contact with and (suspected) exposure to COVID-19; Z87.891 Personal history of nicotine dependence; Z79.4 Long term (current) use of insulin; Z79.899 Other long term (current) drug therapy
CPT/HCPCS: 36415; 71045; 71275; 76705; 80048; 80076; 82728; 82947; 83540; 83605; 83615; 83735; 84145; 84484; 85007; 85027; 85379; 85610; 85730; 87040; 87635; 93005; 96361; 96365; 96375; 99284; 99285; J0696; J1100; J1650; J2405; Q9967

== ENCOUNTER 2022-02-28 11:37 | Outpatient (REF) | payer OTHER, MEDICAID, SELFPAY ==
[2022-02-28 14:26] LABS: Creatinine Urine 120.36 mg/dL; Microalbum/Creatinine Ratio Ur 405.4 ug/mg cr
[2022-02-28 14:28] LABS: Alanine Aminotransferase 23 U/L (0-40); Albumin Level 4.3 g/dL (3.5-5.0); Alkaline Phosphatase 92 U/L (39-117); Anion Gap 13 (12-20); Aspartate Amino Transferase 19 U/L (5-37); Bilirubin Total 0.5 mg/dL (0.0-1.0); Blood Urea Nitrogen 18 mg/dL (9-16); Calcium 9.9 mg/dL (8.4-10.2); Carbon Dioxide 28 mmol/L (22-29); Chloride 103 mmol/L (96-108); Cholesterol 260 mg/dL; Estimated Glomerular Filt Rate > 60; Glucose Fasting 207 mg/dL (60-99); HDL Cholesterol 29 mg/dL; Potassium 4.5 mmol/L (3.3-5.1); Sodium 139 mmol/L (135-145); Total Protein 7.5 g/dL (6.5-8.0); Triglycerides 478 mg/dL
[2022-02-28 14:49] LABS: Vitamin D 25-OH Total 13.1 ng/mL (>30)
[2022-03-02 02:01] LABS: LDL Cholesterol Direct 85 mg/dL (<100)
== END 2022-02-28 11:38 | disposition home or self-care (01) ==
LOC: HO.LAB 11:37
PROVIDERS: PCP Nurse Practitioner Family; Visit Provider Nurse Practitioner Gerontology
DX: E11.65 Type 2 diabetes mellitus with hyperglycemia (principal); E11.21 Type 2 diabetes mellitus with diabetic nephropathy; E11.3393 Type 2 diabetes mellitus with moderate nonproliferative diabetic retinopathy without macular edema, bilateral; E78.5 Hyperlipidemia, unspecified; E66.9 Obesity, unspecified; E55.9 Vitamin D deficiency, unspecified; I10 Essential (primary) hypertension; Z79.4 Long term (current) use of insulin; Z71.3 Dietary counseling and surveillance
CPT/HCPCS: 36415; 80053; 80061; 82043; 82306; 82947; 83036; 83721

== ENCOUNTER → 2022-04-19 11:08 | Outpatient (BNVA) | payer OTHER, MEDICAID, SELFPAY | PROVIDERS: Visit Provider Nurse Practitioner Gerontology | DX: E11.65 Type 2 diabetes mellitus with hyperglycemia (principal); E11.21 Type 2 diabetes mellitus with diabetic nephropathy; E11.3393 Type 2 diabetes mellitus with moderate nonproliferative diabetic retinopathy without macular edema, bilateral; E78.5 Hyperlipidemia, unspecified; E66.9 Obesity, unspecified; E55.9 Vitamin D deficiency, unspecified; I10 Essential (primary) hypertension; Z79.4 Long term (current) use of insulin; Z68.41 Body mass index [BMI] 40.0-44.9, adult | CPT/HCPCS: 82947 ==

== ENCOUNTER 2022-09-18 16:15 | Outpatient (REF) | payer OTHER, MEDICAID, SELFPAY ==
[2022-09-18 17:06] LABS: Anion Gap 14 (12-20); Blood Urea Nitrogen 13 mg/dL (9-16); Calcium 9.6 mg/dL (8.4-10.2); Carbon Dioxide 26 mmol/L (22-29); Chloride 103 mmol/L (96-108); Estimated Glomerular Filt Rate > 60; Potassium 4.3 mmol/L (3.3-5.1); Sodium 139 mmol/L (135-145)
[2022-09-18 18:17] LABS: Appearance Urine Clear; Color Urine Yellow; Glucose Urine UA Negative (Negative); Leukocyte Esterase Urine Negative (Negative); Nitrite Urine Negative (Negative); PH 5.5 (5.0-9.0); UMIC TRIGGER UA YES; Urine Blood Negative (Negative); Urine Ketones Trace mg/dL (Negative); Urine Protein 100 (2+) mg/dL (Neg-Trace)
[2022-09-18 18:22] LABS: Bacteria Urine None Seen (None Seen); Hyaline Casts Urine 0-2 /LPF (0-2); RBC Urine 0-2 /HPF (0-2); Squamous Epithelial Cell Urine 0-2 /HPF (0-2); WBC Urine 0-5 /HPF (0-5)
[2022-09-18 18:32] LABS: Protein/Creatinine Ratio, Ur 0.51 (<0.2); Total Protein Urine Random 122 mg/dL (<12)
[2022-09-18 18:46] LABS: Microalbum/Creatinine Ratio Ur 347.4 ug/mg cr
== END 2022-09-18 16:16 | disposition home or self-care (01) ==
LOC: HO.LAB 16:15
PROVIDERS: Visit Provider Internal Medicine Nephrology
DX: N18.2 Chronic kidney disease, stage 2 (mild) (principal); R80.1 Persistent proteinuria, unspecified
CPT/HCPCS: 36415; 80051; 81001; 82043; 82310; 82565; 84156; 84520

== ENCOUNTER → 2022-10-06 11:02 | Outpatient (BNVA) | payer OTHER, MEDICAID, SELFPAY | PROVIDERS: Visit Provider Internal Medicine Endocrinology, Diabetes & Metabolism | DX: E11.21 Type 2 diabetes mellitus with diabetic nephropathy (principal) | CPT/HCPCS: 82947; 83036 ==

== ENCOUNTER → 2022-11-14 14:27 | Outpatient (BNVA) | payer OTHER, MEDICAID, SELFPAY | PROVIDERS: Visit Provider Registered Nurse Diabetes Educator | DX: E11.21 Type 2 diabetes mellitus with diabetic nephropathy (principal) ==

== ENCOUNTER → 2022-12-06 09:45 | Outpatient (BNVA) | payer OTHER, MEDICAID, SELFPAY | PROVIDERS: Visit Provider Registered Nurse Diabetes Educator | DX: Z13.89 Encounter for screening for other disorder (principal) ==

== ENCOUNTER → 2023-01-02 13:09 | Outpatient (BNVA) | payer OTHER, MEDICAID, SELFPAY | PROVIDERS: Visit Provider Internal Medicine Endocrinology, Diabetes & Metabolism | DX: E11.21 Type 2 diabetes mellitus with diabetic nephropathy (principal); Z79.4 Long term (current) use of insulin | CPT/HCPCS: 82947; 83036 ==

== ENCOUNTER → 2023-02-06 13:24 | Outpatient (BNVA) | payer OTHER, MEDICAID, SELFPAY | PROVIDERS: Visit Provider Dietitian, Registered | DX: E11.9 Type 2 diabetes mellitus without complications (principal) | CPT/HCPCS: 97802 ==

== ENCOUNTER → 2023-04-04 10:56 | Outpatient (BNVA) | payer OTHER, SELFPAY | PROVIDERS: Visit Provider Registered Nurse Diabetes Educator ==

== ENCOUNTER → 2023-04-17 12:55 | Outpatient (BNVA) | payer OTHER, SELFPAY | PROVIDERS: Visit Provider Internal Medicine Endocrinology, Diabetes & Metabolism | DX: E11.21 Type 2 diabetes mellitus with diabetic nephropathy (principal) | CPT/HCPCS: 82947; 83036 ==

== ENCOUNTER 2023-07-24 13:29 | Outpatient (AMB) | payer OTHER, SELFPAY ==
--- NOTE | 2023-07-24 13:30 | A.OFFVIS_ITS ---
Intake Vital Signs 07/24/23 13:31 Height 5 ft 6 in Weight 281 lb 15.539 oz BMI 45.5 BP 172/112 H Blood Pressure Location Lt brachial Position Sitting Pulse 104 H Pulse Source Pulse Oximeter Intake Visit Reasons: F/Up Type 2 DM Intake Note: Patient present today to follow up on Type 2 Diabetes Mellitus. Patient receives pump supplies receives: Tandem Last Diabetic Eye exam: 2021 Last Podiatry Visit: Does not see a Leather Goods Sales Representative Random Glucose: 110 mg/dl HgA1C: 6.7% Stem Shaper Required: No Accompanied by: Self / Same As Patient Allergies No Known Allergies Allergy (Verified 07/24/23 13:35) Medication List - Last Reconciled 07/24/23 by Patrick Patricia MD blood sugar diagnostic (FreeStyle Lite Strips) 4 times a day blood-glucose meter (FreeStyle Lite Meter kit) 4 times a day blood-glucose meter,continuous (Dexcom G6 Custom Dressmaker) As directed blood-glucose sensor (Dexcom G6 Sensor device) As directed blood-glucose transmitter (Dexcom G6 Transmitter device) As directed cholecalciferol (vitamin D3) 1,250 mcg PO QWEEK cholecalciferol (vitamin D3) 125 mcg PO DAILY 30 days insulin regular hum U-500 conc (Humulin R U-500 (Conc) Insulin Kwikpen) 80 units prelunch and 65 units predinner subcutaneously every evening; insulin regular hum U-500 conc (Humulin R U-500 (Concentrated) Insulin) subcutaneously; up to 200 units per day via insulin pump 30 days insulin U-500 syringe-needle As directed injects 3/x day lancets (FreeStyle Lancets) 4 times a day lisinopril 20 mg PO DAILY omega-3 fatty acids (Fish Oil Concentrate) 1,000 mg PO ONCE pen needle, diabetic (BD Cindy 2nd Gen Pen Needle) As directed pen needle, diabetic (BD Cindy 2nd Gen Pen Needle) five times a day HPI HPI Comments History of Present Illness Details Patient is a 43-year-old male with DM type 2 diagnosed around 2011, who presents for management of diabetes. Past medical history: Diabetes type 2, hypertension, hypertriglyceridemia, Micro and macrovascular complications: +retinopathy, +nephropathy, Diabetes medications: He is currently on a tandem T-slim X 2 pump with U-500 basal rate 1.2 units/hour and insulin:carbohydrateof 1 unit: 5.5 g carbohydrate with correcti on factor 01:10 and target 170 Average daily dose of insulin is 52.88 Basal is 50% of the time, food bolus 6% of the time. There is 6% correction bolus. There is 39% control IQ order bolus control IQ w Continuous glucose monitoring: In the last 2 weeks C GM Dexcom shows average blood glucose of 189 [id number]. 50% range with 50% hyperglycemia and 0% hypoglycemia. Pattern shows decreasing blood sugars overnight but increase point care at 14:00 and 20:00. 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 Needs to make appt - had retinopathy Other specialists: none Laboratory Tests 03/30/21 02/28/22 02/28/22 12:00 11:53 12:54 Creatinine 1.14 Estimated GFR > 60 Hgb A1c (Clinic) 7.7 H C-Peptide 1.05 Triglycerides 478 Cholesterol 260 LDL Cholesterol Di rect LDL Cholesterol, C alc TNP HDL Cholesterol 29 25-OH Vitamin D To ezequiel 13.1 Microalb/Creat Rat io 02/28/22 02/28/22 12:54 12:54 Creatinine Estimated GFR Hgb A1c (Clinic) C-Peptide Triglycerides Cholesterol LDL Cholesterol Di rect 85 LDL Cholesterol, C alc HDL Cholesterol 25-OH Vitamin D To ezequiel Microalb/Creat Rat io 405.4 Is thinking about a gastric balloon [facility] Medical History (Updated 10/06/22 @ 11:09 by Patrick Patricia MD) Diabetes type 2, uncontrolled Diabetic nephropathy associated with type 2 diabetes mellitus Dyslipidemia Hypertension alf (current) use of insulin Non-adherence to medical treatment Non-proliferative diabetic retinopathy, moderate, both eyes Obesity (BMI 30-39.9) Uncontrolled type 2 diabetes mellitus Vitamin D deficiency Surgical History No pertinent past surgical history Family History Father Diabetes mellitus Mother Diabetes mellitus Paternal Grandfather Diabetes mellitus Maternal Grandmother Diabetes mellitus Social History Household Members: Family Housing: House Alcohol intake: never Patient Tobacco Use Status: Former Tobacco user Quit Date: 2016 Tobacco use type: Cigarette Years Smoked: 21 years Substance Use Type: Marijuana service: No Current occupational status: unemployed Physical Exam Vital Signs: Last Vital Signs Pulse 104 H 07/24/23 13:31 BP 172/112 H 07/24/23 13:31 BMI result Body Mass Index 45.5 Absence of Cushingoid features. Absence of acromegalic features. Neck exam reveals nl size thyroid about 15 gms. No thyroid nodules palpable. No carotid bruits present. Lungs CTA. Heart S1 S2, Reg R/R. No M/R/ G. Skin exam reveals absence of vitiligo or acanthosis nigricans. Abdominal exam reveals Soft NT/ND with NA BS. No organomegaly present. Neck Other: . Extrem Other: Visual exam of foot performed. No ulcerations or open lesions. No onchomycosis, no callouses.Pulses 2 + distally Sensation intact to monofilament exam. Vibratory sensation sensed is intact with 128 Hz tuning fork Results AMB Hemoglobin A1c AMB Hemoglobin A1c 6.7 % Last Edit by Lucie Rich on 07/24/23 13:53 Results Reviewed Results Reviewed: 07/24/23 13:42 Glucose, Whole Blood Routine Laboratory Last Values Glucose (Clinic) 110 mg/dL (60-115) 07/24/23 13:42 Assessment & Plan Assessment & Plan (1) Diabetic nephropathy associated with type 2 diabetes mellitus: Code(s): E11.21 - Type 2 diabetes mellitus with diabetic nephropathy Plan: This is a 43-year-old male with history of type 2 diabetes and prior history of pancreatitis being treated with basal-bolus insulin with improving excellent glycemic control but elevated post-prandial glucose and known microvascular complications namely retinopathy and nephropathy. Plan is stressed to the patient to bolus prior to 14:00 meal and 20:00 meal. He will follow-up with the staff educator. He is considering going for a gastric balloon will proceed with this. I told may contact me should experience hypoglycemia if he has a gastric balloon implanted Orders: Orders AMB Hemoglobin A1c Today E11.21 - Type 2 diabetes mellitus with diabetic nephropathy Coding Level of Care Code Est Pt Level 4 (30465) Diagnoses Diabetic nephropathy associated with type 2 diabetes mellitus E11.21
[2023-07-24 13:31] VITALS: BP 172/112; PULSE 104; BMI 45.5
[2023-07-24 13:47] LABS: Glucose, Whole Blood 110 mg/dL (60-115)
== END 2023-07-24 14:03 | disposition home or self-care (01) ==
PROVIDERS: PCP Internal Medicine; Visit Provider Internal Medicine Endocrinology, Diabetes & Metabolism
DX: E11.21 Type 2 diabetes mellitus with diabetic nephropathy (principal)
CPT/HCPCS: 99214

== ENCOUNTER → 2023-07-24 13:29 | Outpatient (BNVA) | payer OTHER, SELFPAY | PROVIDERS: Visit Provider Internal Medicine Endocrinology, Diabetes & Metabolism | DX: E11.65 Type 2 diabetes mellitus with hyperglycemia (principal); E11.21 Type 2 diabetes mellitus with diabetic nephropathy; E11.3393 Type 2 diabetes mellitus with moderate nonproliferative diabetic retinopathy without macular edema, bilateral; Z79.4 Long term (current) use of insulin; Z96.41 Presence of insulin pump (external) (internal) | CPT/HCPCS: 82947; 83036 ==

== ENCOUNTER → 2023-08-08 13:48 | Outpatient (BNVA) | payer OTHER, SELFPAY | PROVIDERS: Visit Provider Registered Nurse Diabetes Educator | DX: Z46.81 Encounter for fitting and adjustment of insulin pump (principal); E11.9 Type 2 diabetes mellitus without complications | CPT/HCPCS: 99211 ==

== ENCOUNTER 2024-01-08 13:22 | Outpatient (AMB) | payer OTHER, SELFPAY ==
--- NOTE | 2024-01-08 14:11 | A.OFFVIS_ITS ---
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 insulin Non-proliferative diabetic retinopathy, moderate, both eyes Diabetic nephropathy associated with type 2 diabetes mellitus Diabetes type 2, uncontrolled Surgical History No pertinent past surgical history Family History Father Diabetes mellitus Mother Diabetes mellitus Paternal Grandfather Diabetes mellitus Maternal Grandmother Diabetes mellitus Social History Household Members: Family Housing: House Alcohol intake: never Patient Tobacco Use Status: Former Tobacco user Quit Date: 2016 Tobacco use type: Cigarette Years Smoked: 21 years Substance Use Type: Marijuana service: No Current occupational status: unemployed Assessment & Plan Assessment & Plan (1) Uncontrolled type 2 diabetes mellitus with hyperglycemia: Code(s): E11.65 - Type 2 diabetes mellitus with hyperglycemia Plan: atient presents for pump training for T slim insulin pump and CGM training today. The following topics were reviewed today: -Pump therapy basic concepts: Basal/bolus, insulin to carb ratio, correction factor, insulin on board -Device settings: Bluetooth/mobile connection (if applicable), correct date and time, sound volume -CGM settings(if integrated system): CGM graft views and trend arrows, alerts and alarms, Start new sensor ??? High Alert: 250 mg/dl ??? Low Alert: 80 mg/dl Above target: 53% At target: 47% Below target: 0% Average glucose for the past 2 weeks 197 mg/dL Patient's last A1c 6.7% on 07/24/23 Patient has not been bolusing for his evening meal because he is concerned about running low on insulin. Explained to patient that this can actually cause the insulin pump to administer more automated correction boluses actually increasing insulin use. Patient is using U 500, prescription was only written for 200 units daily actual use in insulin pump is equal to 250 units daily. Recalculated patient's insulin use including prime which is discarded each time patient changes insulin delivery set Sent Dr. Patricia message to re submit prescription for 335 units daily, this should cover 30 days Insulin delivery settings Program insulin to carb ratio, correction factor, target blood glucose, suspend or resume insulin delivery, bolus limit and basal limit settings Instructed patient to only use room temperature insulin, how to load cartridge or fill pod, with insulin. Fill tubing and cannula (if applicable) Inserting infusion set or starting pod Troubleshooting after starting new pod or inserting new insulin set: Occlusion, adhesive tape sensitivity, redness Check BG 2 hours after site change Safety information: Patient understands the basic concepts of pump therapy, how to give insulin for meals and snacks, how to troubleshoot for hyper and hypoglycemia. Setting verified by CDCES Basal rate(s) (units/hour) : 12 AM? to 12 AM? 1.2 units / hr Bolus setting Insulin Carbohydrate Ratio (s) 12 AM? to 12 AM? 1:5.5 Correction Factor / Sensitivity Factor 12 AM? to 12 AM? 1:21 Patient Instructions: Bolus for every meal Follow-up with natural resources extension educator in 1 month Coding Level of Care Code Est Pt Level 1 (39296) Diagnoses Uncontrolled type 2 diabetes mellitus with hyperglycemia E11.65
== END 2024-01-08 14:17 | disposition home or self-care (01) ==
PROVIDERS: Visit Provider Registered Nurse Diabetes Educator
DX: E11.65 Type 2 diabetes mellitus with hyperglycemia (principal)

== ENCOUNTER → 2024-01-08 13:22 | Outpatient (BNVA) | payer OTHER, SELFPAY | PROVIDERS: Visit Provider Registered Nurse Diabetes Educator | DX: Z46.81 Encounter for fitting and adjustment of insulin pump (principal); E11.65 Type 2 diabetes mellitus with hyperglycemia | CPT/HCPCS: 99211 ==

== ENCOUNTER → 2024-02-13 14:51 | Outpatient (BNVA) | payer OTHER, SELFPAY | PROVIDERS: Visit Provider Registered Nurse Diabetes Educator | DX: Z46.81 Encounter for fitting and adjustment of insulin pump (principal); E11.9 Type 2 diabetes mellitus without complications | CPT/HCPCS: 99211 ==

== ENCOUNTER 2024-05-06 13:58 | Outpatient (AMB) | payer OTHER, SELFPAY ==
[2024-05-06 14:00] VITALS: BP 130/86; PULSE 101; BMI 46.4
--- NOTE | 2024-05-06 14:00 | A.OFFVIS_ITS ---
Vital Signs 05/06/24 14:00 Height 5 ft 6 in Weight 287 lb 7.724 oz BMI 46.4 BP 130/86 Blood Pressure Location Lt brachial Position Sitting Pulse 101 H Pulse Source Pulse Oximeter Intake Visit Reasons: T2DM/confirmed Intake Note: Patient present today to follow up on Type 2 Diabetes Mellitus. Last Diabetic Eye exam: 2022 Last Podiatry Visit: Doesn't have one Random Glucose: 113 mg/dl HgA1C: 7.5% Cage Operator Required: No Accompanied by: Self / Same As Patient Allergies No Known Allergies Allergy (Verified 05/06/24 14:05) HPI Comments Details: Patient is a 44-year-old male with DM type 2 diagnosed around 2011, who presents for management of diabetes. Past medical history: Diabetes type 2, hypertension, hypertriglyceridemia, Micro and macrovascular complications: +retinopathy, +nephropathy, Diabetes medications: He is currently on a tandem T-slim X 2 pump with U-500 basal rate 1.2 units/hour and insulin:carbohydrateof 1 unit: 5.5 g carbohydrate with correction factor 01:10 and target 170 Average daily dose of insulin is 52.88 Basal is 50% of the time, bolus 50% food bolus 6% of the time. There is 6% correction bolus. Total daily dose of insulin is 45.9 units There is 72% control IQ order bolus control IQ w Continuous glucose monitoring: In the last 2 weeks C GM Dexcom shows average blood glucose of 172 [id number]. 53% range with 42% hyperglycemia and 5% hypoglycemia. Pattern shows decreasing blood sugars overnight but increase point care at 14:00 and 20:00. 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 Needs to make appt - had retinopathy Other specialists: none Laboratory Tests 03/30/21 02/28/22 02/28/22 12:00 11:53 12:54 Creatinine 1.14 Estimated GFR > 60 Hgb A1c (Clinic) 7.7 H C-Peptide 1.05 Triglycerides 478 Cholesterol 260 LDL Cholesterol Direct LDL Cholesterol, Calc TNP HDL Cholesterol 29 25-OH Vitamin D Total 13.1 Microalb/Creat Ratio 02/28/22 02/28/22 12:54 12:54 Creatinine Estimated GFR Hgb A1c (Clinic) C-Peptide Triglycerides Cholesterol LDL Cholesterol Direct 85 LDL Cholesterol, Calc HDL Cholesterol 25-OH Vitamin D Total Microalb/Creat Ratio 405.4 Is thinking about a gastric balloon [facility] Medical History (Updated 10/25/23 @ 09:35 by Patrick Patricia MD) Uncontrolled type 2 diabetes mellitus with hyperglycemia Uncontrolled type 2 diabetes mellitus Non-adherence to medical treatment Vitamin D deficiency Obesity (BMI 30-39.9) Hypertension 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 Non-proliferative diabetic retinopathy, moderate, both eyes Diabetic nephropathy associated with type 2 diabetes mellitus Diabetes type 2, uncontrolled Surgical History No pertinent past surgical history Family History Father Diabetes mellitus Mother Diabetes mellitus Paternal Grandfather Diabetes mellitus Maternal Grandmother Diabetes mellitus Social History Household Members: Family Housing: House Alcohol intake: never Patient Tobacco Use Status: Former Tobacco user Tobacco use type: Cigarette Years Smoked: 21 years Substance Use Type: Marijuana service: No Current occupational status: unemployed Physical Exam Vital Signs: Last Vital Signs Pulse 101 H 05/06/24 14:00 BP 130/86 05/06/24 14:00 BMI result Body Mass Index 46.4 Results AMB Hemoglobin A1c AMB Hemoglobin A1c 7.5 % Last Edit by DARNELL Barraza on 05/06/24 14:19 Results Reviewed Results Reviewed: Laboratory Last Values Glucose (Clinic) 113 mg/dL (60-115) 05/06/24 14:09 Assessment & Plan Assessment & Plan (1) Diabetic nephropathy associated with type 2 diabetes mellitus: Code(s): E11.21 - Type 2 diabetes mellitus with diabetic nephropathy Category: Medical Plan: This is a 43-year-old male with history of type 2 diabetes and prior history of pancreatitis being treated with U-500 in Tandem pump with known microvascular complications namely retinopathy and nephropathy.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 Patient will follow up with the peer educator. Will check lipid profile microalbumin to creatinine ratio Orders: Orders AMB Hemoglobin A1c Today Z13.9 - Encounter for screening, unspecified Coding Level of Care Code Est Pt Level 4 (16819) Diagnoses Diabetic nephropathy associated with type 2 diabetes mellitus E11.21
[2024-05-06 14:13] LABS: Glucose, Whole Blood 113 mg/dL (60-115)
== END 2024-05-06 14:29 | disposition home or self-care (01) ==
PROVIDERS: Visit Provider Internal Medicine Endocrinology, Diabetes & Metabolism
DX: E11.21 Type 2 diabetes mellitus with diabetic nephropathy (principal); Z13.9 Encounter for screening, unspecified
CPT/HCPCS: 99214

== ENCOUNTER → 2024-05-06 13:58 | Outpatient (BNVA) | payer OTHER, SELFPAY | PROVIDERS: Visit Provider Internal Medicine Endocrinology, Diabetes & Metabolism | DX: E11.21 Type 2 diabetes mellitus with diabetic nephropathy (principal); Z96.41 Presence of insulin pump (external) (internal) | CPT/HCPCS: 82947; 83036 ==

== ENCOUNTER 2024-06-23 15:28 | Outpatient (AMB) | payer OTHER, SELFPAY ==
--- NOTE | 2024-06-23 15:53 | MHC.AMDMED ---
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 Non-proliferative diabetic retinopathy, moderate, both eyes Diabetic nephropathy associated with type 2 diabetes mellitus Diabetes type 2, uncontrolled Surgical History No pertinent past surgical history Family History Father Diabetes mellitus Mother Diabetes mellitus Paternal Grandfather Diabetes mellitus Maternal Grandmother Diabetes mellitus Social History Household Members: Family Housing: House Alcohol intake: never Patient Tobacco Use Status: Former Tobacco user Tobacco use type: Cigarette Years Smoked: 21 years Substance Use Type: Marijuana service: No Current occupational status: unemployed Assessment & Plan Assessment & Plan (1) Uncontrolled type 2 diabetes mellitus with hyperglycemia: Code(s): E11.65 - Type 2 diabetes mellitus with hyperglycemia Plan: Patient presents for pump training for T slim insulin pump and Dexcom G7 CGM training today. Patient uses Humulin U 500 with control IQ The following topics were reviewed today: -Upgrade to DexMileWise G7 -Reconnecting to [employer] annalee ??? High Alert: 250 mg/dl ??? Low Alert: 80 mg/dl CGM data: Above target: 39% At target: 61% Below target: 0% Average glucose for the past 2 weeks 179 mg/dL Patient's last A1c 7.5% on 05/06/24 Glucose levels have improved, also patient is now getting the appropriate amount of U 500 after updated script was sent to pharmacy Patient reports he has been drinking regular amaya adis my account for increase in average glucose reviewed target goals for blood glucose and A1c Instructed patient to only use room temperature insulin, how to load cartridge or fill pod, with insulin. Fill tubing and cannula (if applicable) Inserting infusion set or starting pod Troubleshooting after starting new pod or inserting new insulin set: Occlusion, adhesive tape sensitivity, redness Check BG 2 hours after site change Safety information: Patient understands the basic concepts of pump therapy, how to give insulin for meals and snacks, how to troubleshoot for hyper and hypoglycemia. Setting verified by CDCES, no changes made to insulin pump settings at this visit Basal rate(s) (units/hour) : 12 AM? to 12 AM? 1.2 units / hr Bolus setting Insulin Carbohydrate Ratio (s) 12 AM? to 12 AM? 1:5.5 Correction Factor / Sensitivity Factor 12 AM? to 12 AM? 1:21 Patient Instructions: Reduce high carbohydrate drinks Follow up with Chair Frame Builder in 4 month Coding Level of Care Code Est Pt Level 1 (32115) Diagnoses Uncontrolled type 2 diabetes mellitus with hyperglycemia E11.65
== END 2024-06-23 16:03 | disposition home or self-care (01) ==
PROVIDERS: Visit Provider Registered Nurse Diabetes Educator
DX: E11.65 Type 2 diabetes mellitus with hyperglycemia (principal)

== ENCOUNTER → 2024-06-23 15:28 | Outpatient (BNVA) | payer OTHER, SELFPAY | PROVIDERS: Visit Provider Registered Nurse Diabetes Educator | DX: Z46.81 Encounter for fitting and adjustment of insulin pump (principal); E11.65 Type 2 diabetes mellitus with hyperglycemia | CPT/HCPCS: 99211 ==

== ENCOUNTER 2024-07-29 14:41 | Outpatient (AMB) | payer OTHER, SELFPAY ==
--- NOTE | 2024-07-29 13:31 | A.OFFVIS_ITS ---
Vital Signs 07/29/24 14:49 Height 5 ft 6 in Weight 282 lb 13.649 oz BMI 45.6 BP 196/110 H Blood Pressure Location Rt brachial Position Sitting Pulse 111 H Pulse Source Pulse Oximeter Intake Visit Reasons: T2DM Tandem pump/CONFIRMED Intake Note: Patient present today to follow up on Type 2 Diabetes Mellitus. Last Diabetic Eye exam: 09/2023 Last Podiatry Visit: Does not see a stripping and booking machine operator Random Glucose: 98 mg/dL Most Recent HgA1C: 7.4% Public Health Teacher Required: No Accompanied by: Self / Same As Patient Allergies No Known Allergies Allergy (Verified 07/29/24 14:57) HPI Comments Details: Patient is a 44-year-old male with DM type 2 diagnosed around 2011, who presents for management of diabetes. He was last seen by [facility] ib 06/[address] Patricia on 05/06/24. A1C in the office today is 7.4%. His previous HgbA1C was on 7.5% on 05/06/24 up from 6.7% 07/18. He has been on an insuin pump for 2 years. BP is elevated in the office today. He has not taken antihypertensives in 3 days. Past medical history: Diabetes type 2, hypertension, hypertriglyceridemia, Micro and macrovascular complications: +retinopathy, +nephropathy, Diabetes medications: He is currently on a tandem T-slim X 2 pump with U-500 For past 2 weeks average glucose reading is 168. He is in range 63% of the time using his CGM sensor 93% of the time. He is in control IQ mode 78% of the time. Very rare lows. He is not entering carbs before the meals in his having elevated sugars afterwards which eventually returned to normal after several corrections. He is entering a total of 41 carb g per day. He typically skips breakfast, for lunch has a sandwich or cupcake from the vending machine and dinner consists of rice beans fish/chicken. Basal rate(s) (units/hour) : 12 AM? to 12 AM? 1.2 units / hr Bolus setting Insulin Carbohydrate Ratio (s) 12 AM? to 12 AM? 1:5.5 Correction Factor / Sensitivity Factor 12 AM? to 12 AM? 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 Non-proliferative diabetic retinopathy, moderate, both eyes Diabetic nephropathy associated with type 2 diabetes mellitus Diabetes type 2, uncontrolled Surgical History No pertinent past surgical history Family History Father Diabetes mellitus Mother Diabetes mellitus Paternal Grandfather Diabetes mellitus Maternal Grandmother Diabetes mellitus Social History Household Members: Family Housing: House Alcohol intake: never Patient Tobacco Use Status: Former Tobacco user Tobacco use type: Cigarette Years Smoked: 21 years Substance Use Type: Marijuana service: No Current occupational status: unemployed Physical Exam Vital Signs: Last Vital Signs Pulse 111 H 07/29/24 14:49 BP 196/110 H 07/29/24 14:49 BMI result Body Mass Index 45.6 Const Other: Absence of Cushingoid features. Absence of acromegalic features. Neck exam reveals nl size thyroid about 15 gms. No thyroid nodules palpable. No carotid bruits present. Lungs CTA. Heart S1 S2, Reg R/R. No M/R G. Skin exam reveals absence of vitiligo or acanthosis nigricans. A.m. cortisol less than 10 Extrem Other: Visual exam of foot performed. No ulcerations or open lesions. No onchomycosis, no callouses. Sensation intact to monofilament exam. Vibratory sensation is normal with 128 Hz tuning fork. Results AMB Hemoglobin A1c AMB Hemoglobin A1c 7.4 % Last Edit by DARNELL Barraza on 07/29/24 15:09 Results Reviewed Results Reviewed: Laboratory Last Values Glucose (Clinic) 98 mg/dL (60-115) 07/29/24 14:59 Laboratory Tests 07/24/23 05/06/24 07/29/24 13:46 14:12 15:03 Hgb A1c (Clinic) 6.7 H 7.5 H 7.4 H Assessment & Plan Assessment & Plan (1) Uncontrolled type 2 diabetes mellitus with hyperglycemia: Code(s): E11.65 - Type 2 diabetes mellitus with hyperglycemia Category: Medical Plan: 44-year-old type 2 diabetic on a tandem insulin pump with U 500 insulin with a persistent A1c in the mid sevens. He has only been entering 41 carbs per day and typically enter sees after the meals when he his sugars rise. He has agreed to enter carbohydrates before the meal and we be reduce the contents of what he is eating he is typically eating about 30-40 carb g in the afternoon and 90 for supper. He will go to the lab and have fasting lipid profile BMP CBC AST and ALT in order to do a fib 4 calculation. Prescription sent for ketone testing a nasal glucagon. Backup insulin plan reviewed for pump failure. Plan Laboratory Tests 09/18/22 04/17/23 07/24/23 16:34 13:31 13:46 Potassium 4.3 Creatinine 1.02 Estimated GFR > 60 Hgb A1c (Clinic) 6.0 6.7 H Calcium 9.6 05/06/24 14:12 Potassium Creatinine Estimated GFR Hgb A1c (Clinic) 7.5 H Calcium Orders: Orders Lipid Panel Today E11.65 - Type 2 diabetes mellitus with hyperglycemia Basic Metabolic Panel Today E11.65 - Type 2 diabetes mellitus with hyperglycemia Creatinine Urine Today E11.65 - Type 2 diabetes mellitus with hyperglycemia Complete Blood Count Auto Diff Today E11.65 - Type 2 diabetes mellitus with hyperglycemia AMB Hemoglobin A1c Today E11.65 - Type 2 diabetes mellitus with hyperglycemia, Z13.9 - Encounter for screening, unspecified Microalbumin, Random (w Creat) Today E11.65 - Type 2 diabetes mellitus with hyperglycemia Aspartate Amino Transferase Today E11.65 - Type 2 diabetes mellitus with hyperglycemia Alanine Aminotransferase Today E11.65 - Type 2 diabetes mellitus with hyperglycemia Medications: New acetone (urine) test (Ketone Urine Test strips) As directed glucose over 250, illness, nausea, vomiting 25 ea 1RF E11.65 - Type 2 diabetes mellitus with hyperglycemia glucagon 3 mg/actuation (Baqsimi) May repeat in 15 minutes 3 mg intranasal .PRN 30 days PRN 2 ea 1RF Unresponsive hypoglycemia MDD 6 mg E11.65 - Type 2 diabetes mellitus with hyperglycemia Patient Instructions: The patient was counseled to always carry a source of sugar and on the rule of 15's: Take 3 glucose tablets and repeat again in 15 minutes if blood sugar is not in normal range. Continue to repeat every 15 minutes until blood sugar is normal. Symptoms of DKA were reviewed: early: frequent urination, dry mouth, fatigue, feeling ill, severe symptoms: ketones in the urine, abdominal pain, nausea, vomiting and weakness. It is important to hydrate with sugar free liquids every 30 minutes and bring the sugars down to normal levels. Troubleshooting after starting new pod or inserting new insulin set: Occlusion, adhesive tape sensitivity, redness Check BG 2 hours after site change Safety information: Importance of a backup plan, for manual injections, proper prescriptions and emergency supplies ketone strips, and rules for testing for ketones The patient was counseled to achieve a target A1C of 7% (154 avg). Fasting blood sugars should be 90-130 in the morning and less than 180 two hours after meals. Reviewed the relationship between poor diabetic control and the developement of complications Coding Level of Care Code Est Pt Level 4 (64057) Complex EM visit Add On G2211 Diagnoses Uncontrolled type 2 diabetes mellitus with hyperglycemia E11.65 Time Spent (min) 35 Comment Reviewing labs/provider notes, glucose sensor/pump reports, face to face, chart doc
[2024-07-29 14:49] VITALS: BP 196/110; PULSE 111; BMI 45.6
[2024-07-29 15:05] LABS: Glucose, Whole Blood 98 mg/dL (60-115)
== END 2024-07-29 15:30 | disposition home or self-care (01) ==
PROVIDERS: Visit Provider Nurse Practitioner Adult Health
DX: Z13.9 Encounter for screening, unspecified (principal); E11.65 Type 2 diabetes mellitus with hyperglycemia
CPT/HCPCS: 99214

== ENCOUNTER → 2024-07-29 14:41 | Outpatient (BNVA) | payer OTHER, SELFPAY | PROVIDERS: Visit Provider Nurse Practitioner Adult Health | DX: E11.65 Type 2 diabetes mellitus with hyperglycemia (principal); E11.319 Type 2 diabetes mellitus with unspecified diabetic retinopathy without macular edema; E11.21 Type 2 diabetes mellitus with diabetic nephropathy; Z96.41 Presence of insulin pump (external) (internal) | CPT/HCPCS: 82947; 83036 ==

== ENCOUNTER 2024-10-28 14:29 | Outpatient (AMB) | payer OTHER, SELFPAY ==
--- NOTE | 2024-10-28 12:24 | A.OFFVIS_ITS ---
Vital Signs 10/28/24 14:32 10/28/24 15:03 Height 5 ft 6 in Weight 284 lb 6.341 oz BMI 45.9 BP 180/118 H 180/98 H Blood Pressure Location Rt brachial Lt radial Position Sitting Sitting Pulse 107 H Pulse Source Pulse Oximeter Intake Visit Reasons: T2DM/CONF Intake Note: Patient presents today for a follow-up on Type 2 Diabetes Mellitus: Last Diabetic eye exam was on: 09/26/2024 Last Podiatry exam was on: Does not see a Leather Case Finisher Most recent HbA1c: 7.5%, 10/28/2024 Random Glucose- 220 mg/dL, Today Nurse Assistant Required: No Accompanied by: Self / Same As Patient Allergies No Known Allergies Allergy (Verified 10/28/24 14:31) HPI Comments Details: Patient is a 44-year-old male with DM type 2 diagnosed around 2011, who presents for management of diabetes. He was last seen 07/29/24 at which time his A1C was 7.4%. His previous HgbA1C was on 7.5% on 05/06/24 up from 6.7% 07/18. He has been on an insuin pump for 2 years. BP is elevated in the office today. He has not taken antihypertensives in 3 days. 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 to 12 AM? 1.2 units / hr Bolus setting Insulin Carbohydrate Ratio (s) 12 AM? to 12 AM? 1:5.5 Correction Factor / Sensitivity Factor 12 AM? to 12 AM? 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 Non-proliferative diabetic retinopathy, moderate, both eyes Diabetic nephropathy associated with type 2 diabetes mellitus Diabetes type 2, uncontrolled Surgical History No pertinent past surgical history Family History Father Diabetes mellitus Mother Diabetes mellitus Paternal Grandfather Diabetes mellitus Maternal Grandmother Diabetes mellitus Social History Household Members: Family Housing: House Alcohol intake: never Patient Tobacco Use Status: Former Tobacco user Tobacco use type: Cigarette Years Smoked: 21 years Substance Use Type: Marijuana service: No Current occupational status: unemployed Physical Exam Vital Signs: Last Vital Signs Pulse 107 H 10/28/24 14:32 BP 180/98 H 10/28/24 15:03 BMI result Body Mass Index 45.9 Const Other: Absence of Cushingoid features. Absence of acromegalic features. Neck exam reveals nl size thyroid about 15 gms. No thyroid nodules palpable. Heart S1 S2, Reg R/R. No M/R G. Skin exam reveals absence of vitiligo or acanthosis nigricans. No edema Office Procedures Glucose Monitoring Details Details: see hpi [id number] - Glucose monitoring, continuous-physician I&R Procedure code (CPT) selection complete Results AMB Hemoglobin A1c AMB Hemoglobin A1c 7.5 % Last Edit by DARNELL Tran on 10/28/24 15:00 Results Reviewed Results Reviewed: Laboratory Last Values Glucose (Clinic) 220 mg/dL (60-115) H 10/28/24 14:35 Hgb A1c (Clinic) 7.5 % (4.0-6.0) H 10/28/24 14:48 Assessment & Plan Assessment & Plan (1) Uncontrolled type 2 diabetes mellitus with hyperglycemia: Code(s): E11.65 - Type 2 diabetes mellitus with hyperglycemia Category: Medical Plan: 44-year-old type 2 diabetic with a history of retinopathy on an insulin pump with an A1c of 7.5% 10/28/24. Encouraged to enter in the carb grams he eats to prevent post prandial highs. Patient reports he is off statin secondary to side effects and will have labs done off statin The patient had an opportunity to ask questions regarding treatment plan. The patient expressed understanding and agreement with the above treatment plan. The patient is aware they should contact our office by phone for worsening glucose readings or for any low blood sugars which may warrant a change in diabetes medication. Compliance is encouraged with medications and any followup testing/consults which may have been ordered. (2) Hypertension: Code(s): I10 - Essential (primary) hypertension Category: Medical Plan: He was encouraged to take his antihypertensive daily, reduce salt intake and add hctz 12.5mg daily. He will have labs done in 4 weeks. HE has f/u with PCP and will have bp checked at that time. Orders: Orders AMB Hemoglobin A1c Today E11.65 - Type 2 diabetes mellitus with hyperglycemia AMB Glucose Monitoring Today I10 - Essential (primary) hypertension Medications: New hydrochlorothiazide 12.5 mg PO DAILY 30 days 30 caps 3RF Scribe Plan - Not visible on output: The patient was counseled to always carry a source of sugar and on the rule of 15's: Take 3 glucose tablets and repeat again in 15 minutes if blood sugar is not in normal range. Continue to repeat every 15 minutes until blood sugar is normal. Symptoms of DKA (diabetic ketoacidosis): early: frequent urination, dry mouth, fatigue, feeling ill, severe symptoms: ketones in the urine, abdominal pain, nausea, vomiting and weakness. It is important to hydrate with sugar free liquids every 15-30 minutes and bring the sugars down to normal levels. If you are moderate or severe with ketones or unable to bring glucose to less than 200, go to the emergency room. Troubleshooting after starting new pod or inserting new insulin set: Occlusion, adhesive tape sensitivity, redness Check BG 2 hours after site change Safety information: Importance of a backup plan, for manual injections, proper prescriptions and emergency supplies ketone strips, and rules for testing for ketones The patient was counseled to achieve a target A1C of 7% (154 avg). Fasting blood sugars should be 90-130 in the morning and less than 180 two hours after meals. Reviewed the relationship between poor diabetic control and the development of complications. Check your feet daily looking for any signs of infection, ulceration and seek medical attention if this occurs. Break in shoes gradually and do not wear open-toed shoes or walk barefooted. Coding Level of Care Code Est Pt Level 4 (46128) Complex EM visit Add On G2211 Diagnoses Uncontrolled type 2 diabetes mellitus with hyperglycemia E11.65 Hypertension I10 CPT Codes Details - CPT: 89586 - Glucose monitoring, continuous-physician I&R ([id number])
[2024-10-28 14:32] VITALS: BP 180/118; PULSE 107; BMI 45.9
[2024-10-28 15:03] VITALS: BP 180/98
[2024-10-28 15:03] LABS: Glucose, Whole Blood 220 mg/dL (60-115)
== END 2024-10-28 15:03 | disposition home or self-care (01) ==
PROVIDERS: Visit Provider Nurse Practitioner Adult Health
DX: E11.65 Type 2 diabetes mellitus with hyperglycemia (principal); I10 Essential (primary) hypertension
CPT/HCPCS: 95251; 99214

== ENCOUNTER → 2024-10-28 14:29 | Outpatient (BNVA) | payer OTHER, SELFPAY | PROVIDERS: Visit Provider Registered Nurse Diabetes Educator | DX: E11.65 Type 2 diabetes mellitus with hyperglycemia (principal); I10 Essential (primary) hypertension | CPT/HCPCS: 82947; 83036; 99211 ==

== ENCOUNTER 2025-01-27 14:23 | Outpatient (AMB) | payer OTHER, SELFPAY ==
--- NOTE | 2025-01-27 12:33 | A.OFFVIS_ITS ---
Vital Signs 01/27/25 14:26 Height 5 ft 6 in Weight 286 lb 9.615 oz BMI 46.3 BP 150/100 H Blood Pressure Location Rt brachial Position Sitting Pulse 105 H Pulse Source Pulse Oximeter Pulse Oximetry (%) 95 Oxygen Delivery Method Room Air Intake Visit Reasons: T2DM Intake Note: Patient presents today for a follow-up on Type 2 Diabetes Mellitus: Last Diabetic eye exam was on: 09/26/2024 Last Podiatry exam was on: Does not see a Publication Director Most recent HbA1c: 8.0%, 01/27/2025 Random Glucose- 109 mg/dL, Today Instrument Calibrator Required: No Accompanied by: Self / Same As Patient Allergies No Known Allergies Allergy (Verified 01/27/25 14:26) HPI Comments Details: Patient is a 45-year-old male with DM type 2 diagnosed around 2011, who presents for management of diabetes. He was last seen 10/28/24 at which time his A1C was 7.5%. His previous HgbA1C was on 7.5% on 05/06/24 up from 6.7% 07/18. He has been on an insuin pump for 2 years. BP was elevated last visit and a prescription for hctz 12.5mg was sent which he reports not receiving sent again today Past medical history: Diabetes type 2, hypertension, hypertriglyceridemia, Micro and macrovascular complications: +retinopathy, +nephropathy, Diabetes medications: He is currently on a tandem T-slim X 2 pump with U-500 Dexcom average glucose: 181 14 day continuous glucose monitor report reviewed Glucose Managment indicator 7.6 % Days with CGM data [ ] % TIme in ranges: Twenty % very high (above 250) 21 % high ?(181-250) 55 % in range ?(70-180] 2.5 % low (69-55) 1.1 % ?very low (below 54) Basal rate(s) (units/hour) : 12 AM? to 12 AM? 1.2 units / hr Bolus setting Insulin Carbohydrate Ratio (s) 12 AM? to 12 AM? 1:5.5 Correction Factor / Sensitivity Factor 12 AM? to 12 AM? 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 Non-proliferative diabetic retinopathy, moderate, both eyes Diabetic nephropathy associated with type 2 diabetes mellitus Diabetes type 2, uncontrolled Surgical History No pertinent past surgical history Family History Father Diabetes mellitus Mother Diabetes mellitus Paternal Grandfather Diabetes mellitus Maternal Grandmother Diabetes mellitus Social History Household Members: Family Housing: House Alcohol intake: never Patient Tobacco Use Status: Former Tobacco user Tobacco use type: Cigarette Years Smoked: 21 years Substance Use Type: Marijuana service: No Current occupational status: unemployed Physical Exam Vital Signs: Last Vital Signs Pulse 105 H 01/27/25 14:26 BP 150/100 H 01/27/25 14:26 Pulse Ox 95 01/27/25 14:26 Oxygen Delivery Method Room Air 01/27/25 14:26 BMI result Body Mass Index 46.3 Const Other: Absence of Cushingoid features. Absence of acromegalic features. Neck exam reveals nl size thyroid about 15 gms. No thyroid nodules palpable. Heart S1 S2, Reg R/R. No M/R G. Skin exam reveals absence of vitiligo or acanthosis nigricans. No edema Visual exam of foot performed. No ulcerations or open lesions. No inter digit maceration or fissuring.nails mildlhy thickened and yellowed no callouses. Sensation intact to monofilament exam. Vibratory sensation is normal with 128 Hz tuning fork. Results AMB Hemoglobin A1c AMB Hemoglobin A1c 8.0 % Last Edit by DARNELL Tran on 01/27/25 14:46 Results Reviewed Results Reviewed: Laboratory Last Values Glucose (Clinic) 109 mg/dL (60-115) 01/27/25 14:34 Hgb A1c (Clinic) 8.0 % (4.0-6.0) H 01/27/25 14:44 Assessment & Plan Assessment & Plan (1) Uncontrolled type 2 diabetes mellitus: Category: Medical Plan: 45-year-old type 2 diabetic on an insulin pump with no known macro/macrovascular complications with the exception of nonproliferative retinopathy indicated in his chart. Hemoglobin A1c 01/27/25 8%. He has downward The patient had an opportunity to ask questions regarding treatment plan. The patient expressed understanding and agreement with the above treatment plan. The patient is aware they should contact our office by phone for worsening glucose readings or for any low blood sugars which may warrant a change in diabetes medication. Compliance is encouraged with medications and any followup testing/consults which may have been ordered. Orders: Orders AMB Hemoglobin A1c Today E11.21 - Type 2 diabetes mellitus with diabetic nephropathy Medications: Refilled hydrochlorothiazide 12.5 mg PO DAILY 30 days 30 caps 3RF Patient Instructions: Symptoms of DKA (diabetic ketoacidosis): early: frequent urination, dry mouth, fatigue, feeling ill, severe symptoms: ketones in the urine, abdominal pain, nausea, vomiting and weakness. It is important to hydrate with sugar free liquids every 15-30 minutes and bring the sugars down to normal levels. If you are moderate or severe with ketones or unable to bring glucose to less than 200, go to the emergency room. Troubleshooting after starting new pod or inserting new insulin set: Occlusion, adhesive tape sensitivity, redness Check BG 2 hours after site change Safety information: Importance of a backup plan, for manual injections, proper prescriptions and emergency supplies ketone strips, and rules for testing for ketones The patient was counseled to achieve a target A1C of 7% (154 avg). Fasting blood sugars should be 90-130 in the morning and less than 180 two hours after meals. Reviewed the relationship between poor diabetic control and the development of complications. Foot Coding Level of Care Code Est Pt Level 4 (14246) Complex EM visit Add On G2211 Diagnoses Uncontrolled type 2 diabetes mellitus Time Spent (min) 30 Comment Time spent reviewing labs/provider notes, face to face, chart doc
[2025-01-27 14:26] VITALS: BP 150/100; PULSE 105; O2SAT 95; BMI 46.3
[2025-01-27 14:39] LABS: Glucose, Whole Blood 109 mg/dL (60-115)
--- OUTSIDE RECORDS SUMMARY | 2025-01-27 18:12 | XMS_ITS | Clinical Summary ---
Author Organization [facility] Address [address] [place] [address] Phone Care Team Providers Care Public Services Assistant Name Role Phone Jenae Alejo APRN Primary Care Provider [phone] Allergies No known active allergies Medications HumaLOG KWIKPEN 100 UNIT/ML solution pen-injector INJECT 20-26 UNITS SUBCUTANEOUSLY THREE TIMES DAILY 06/22/20 22 Active Lantus SoloStar 100 UNIT/ML injection INJECT 86 UNITS SUBCUTANEOUSLY EVERY EVENING (2 injections OF 43 UNITS) 05/26/20 22 Active cholecalciferol (VITAMIN D-3) 25 MCG (1000 UT) capsule Take 1 capsule by mouth 1 (one) time each day Active gemfibrozil (LOPID) 600 MG tablet Take 1 tablet by mouth in the morning and 1 tablet in the evening. Active Selenium 200 MCG tablet Take by mouth Active folic acid-vitamin B complex-vitamin D-vsxovxjf-dhdp (DIALYVITE) 3 MG tablet Take 1 tablet by mouth 1 (one) time each day Active omega-3 (FISH OIL) 1000 MG capsule Take by mouth 1 (one) time each day Active Canagliflozin (Invokana) 100 MG tablet Take 100 mg by mouth 1 (one) time each day 90 tablet 2 09/18/20 22 Active HumuLIN R 500 UNIT/ML CONCENTRATED injection 12/20/19 23 Active lisinopril 20 MG tablet Take 1 tablet (20 mg total) by mouth 1 (one) time each day 90 tablet 3 01/31/20 23 Active Active Problems Problem Noted Date Diagnosed Date Essential (primary) hypertension 09/18/2022 Type 2 diabetes mellitus without complication Chronic kidney disease, stage 2 (mild) 2 Proteinuria 07/24/2022 Immunizations Name Administration Dates Next Due Tdap 10/03/2023 Family History Medical History Relation Comments Diabetes Father Diabetes Mother Relation Status Comments Father Mother Social History Tobacco Use Types Packs/Day Years Used Date Smoking Tobacco: Every Day Cigarettes Smokeless Tobacco: Never Tobacco Cessation:Ready to Q uit: Not Asked; Counseling Given: Not Answered Alcohol Use Standard Drinks/Week Comments Never 0 (1 standard drink = 0.6 oz pur e alcohol) Sex and Gender Information Value Date Recorded Sex Assigned at Not on file Legal Sex Male 4:41 PM EST Gender Identity Not on file Sexual Orientation Not on file Last Filed Vital Signs Vital Sign Reading Time Taken Comments Blood Pressure 140/85 09/18/2022 3:38 PM EDT Pulse 87 09/18/2022 3:38 PM EDT Temperature - - Respiratory Rate - - Oxygen Saturation 97% 09/18/2022 3:38 PM EDT Inhaled Oxygen Concentration - - Weight 119 kg (262 lb) 09/18/2022 3:38 PM EDT Height - - Body Mass Index - - Plan of Treatment Upcoming Encounters Date Type Department Care Team (Late st Contact Info) Description 02/24/2025 4:30 PM EDT Office Visit [facility] [address] [address] Fran Rosen MD [address] [address] Health Maintenance Due Date Last Done Comments Hepatitis B Vaccine (1 of 3 - 19+ 3-dose series) 1998 Pneumococcal Vaccine: Pediat rics (0 to 5 Years) and At-Risk Patients (6 to 64 Years) (2 of 2 - PCV) 10/11/2006 10/03/2023, 10/11/2005 Diabetes: Hemoglobin A1C 09/18/2022 Diabetes: Ophthalmology Exam 09/18/2022 Diabetes: Pedal Pulse Checked 09/18/2022 Diabetes: Sensory Foot Exam 09/18/2022 Diabetes: Visual Foot Exam 09/18/2022 Influenza Vaccine (#1) 2024 12/17/2013 Insurance [facility] Care Teams Public Services Assistant Relationship Specialty Start Date End Date Jenae Alejo APRN [address] [place] [address] PCP - General Internal Medicine 08/27/24
--- OUTSIDE RECORDS SUMMARY | 2025-01-27 18:12 | XMS_ITS | Clinical Summary ---
Author Organization [email or web address] Address [address] [place] [address] [address] [place] [address] Care Team Providers Care Barrel Builder Name Role Phone Unavailable Primary Care Provider Unavailabl e Social History Tobacco Use Types Packs/Day Years Used Date Smoking Tobacco: Never Assessed Sex and Gender Information Value Date Recorded Sex Assigned at Male 09/25/2022 10:17 AM EDT Legal Sex Male 10:17 AM EDT Gender Identity Not on file Sexual Orientation Not on file Plan of Treatment Health Maintenance Due Date Last Done Comments CT Colonography 1979 Colonoscopy 1979 Colorectal Cancer Screening 1979 Depression Screening 1979 FIT DNA/Cologuard 1979 FIT 1979 FOBT 1979 Sigmoidoscopy 1979 Alcohol/Substance Use Screening 1991 Tobacco Screening 1991 Family Planning (PISQ) 1994 Hepatitis B Vaccines (1 of 3 - 19+ 3-dose series) 1998 DTaP/Tdap/Td Vaccines (2 - T d or Tdap) 02/18/2024 02/17/2014, 10/11/2005 COVID-19 Vaccine (2023-2 5 season) 2024 Influenza Vaccine (#1) 2024 12/17/2013 Lipid Panel 02/28/2027 02/28/2022 Zoster Vaccines (1 of 2) 2029 RSV Patients and Patients Aged 60 years or older (1 - 1-dose 75+ series) 2054 Pneumococcal Vaccine: Pediatrics (0 to 5 Years) and At-Risk Patients (6 to 49) Years) Aged Out 10/11/2005 No longer eligible b ased on patient's age to complete this topic HIB Vaccines Aged Out No longer eligi ble based on patient's age to complete this topic HPV Vaccines Aged Out No longer eligi ble based on patient's age to complete this topic Hepatitis A Vaccines Aged Out No long er eligible based on patient's age to complete this topic IPV Vaccines Aged Out No longer eligi ble based on patient's age to complete this topic Meningococcal Vaccine Aged Out No aaron angelica eligible based on patient's age to complete this topic RSV under 20 months Aged Out No longe r eligible based on patient's age to complete this topic Rotavirus Vaccines Aged Out No longer eligible based on patient's age to complete this topic Procedures Procedure Name Priority Date/Time Associated Diagnosis Comments ShaylaNATALIO HISTORICAL LIPID PANEL Routine 02/28/2022 12:54 PM EDT from Last 3 Months or Most Recently Relevant to Health Maintenance Results * (ABNORMAL) LIPID PANEL (02/28/2022 12:54 PM EDT) Cholesterol 260 mg/dL [facility] Comment: Desirable Cholesterol: ?less than 200 mg/dL Borderline High Cholesterol: ??200-239 mg/dL High Cholesterol: ? greater than 239 mg/dL HDL Cholesterol 29 mg/dL [facility] Comment: Desirable HDL: ??greater than 40 mg/dL ?? Note: This HDL assay may give artificially ? low results in patients with liver disease. LDL Cholesterol Calculated TNP mg/dl [facility] Comment: Unable to calculate the LDL. ??The formula of Friedwald, Mayo, and Earline is only valid if the triglycerides are less than 400 mg/dl. Triglycerides 478 mg/dL [facility] Comment: Desirable Triglyceride: ? less than 150 mg/dL Borderline High Triglyceride ??150-199 mg/dL High Triglyceride: ?200-499 mg/dL Very High Triglyceride: ? greater than or equal to ? 5OO mg/dL Alanine Aminotransferase 23 0 - 40 U/L [facility] Albumin Level 4.3 3.5 - 5.0 g/dL [facility] Alkaline Phosphatase 92 39 - 117 U/L [facility] Anion Gap 13 12 - 20 [facility] Aspartate Amino Transferase 19 5 - 37 U/L [facility] Bilirubin Total 0.5 0.0 - 1.0 mg/dL [facility] Blood Urea Nitrogen 18(H) 9 - 16 mg/dL [facility] Calcium 9.9 8.4 - 10.2 mg/dL [facility] Carbon Dioxide 28 22 - 29 mmol/L [facility] Chloride 103 96 - 108 mmol/L [facility] Creatinine, Serum 1.14 0.5 - 1.4 mg/dL [facility] Estimated Glomerular Filt Rate >60 [facility] Comment: NOTE: ??For -Barbadian individuals, multiply the result ?by . ?? Chronic Kidney Disease: ??Estimated GFR < 60 mL/min/1.73m2 Severe Kidney Disease: ??Estimated GFR < 15 mL/min/1.73m2 Glucose Fasting 207(H) 60 - 99 mg/dL [facility] Comment: A fasting glucose of 126 mg/dl or greater on more than one occasion is considered diagnostic of diabetes. Potassium 4.5 3.3 - 5.1 mmol/L [facility] Sodium 139 135 - 145 mmol/L [facility] Total Protein 7.5 6.5 - 8.0 g/dL [facility] 02/28/2022 12:5 4 PM EDT us Historical Provider HISTORICAL/NON ORDERABLE LABS Final Result [facility] [address] from Last 3 Months or Most Recently Relevant to Health Maintenance
== END 2025-01-27 14:54 | disposition home or self-care (01) ==
PROVIDERS: Visit Provider Nurse Practitioner Adult Health
DX: E11.21 Type 2 diabetes mellitus with diabetic nephropathy (principal)
CPT/HCPCS: 99214

== ENCOUNTER → 2025-01-27 14:23 | Outpatient (BNVA) | payer OTHER, SELFPAY | PROVIDERS: Visit Provider Nurse Practitioner Adult Health | DX: E11.9 Type 2 diabetes mellitus without complications (principal); Z96.41 Presence of insulin pump (external) (internal) | CPT/HCPCS: 82947; 83036 ==

== ENCOUNTER 2025-04-28 14:32 | Outpatient (AMB) | payer OTHER, SELFPAY ==
--- NOTE | 2025-04-28 08:07 | A.OFFVIS_ITS ---
Vital Signs 04/28/25 14:35 Height 5 ft 6 in Weight 286 lb 9.615 oz BMI 46.3 BP 162/100 H Blood Pressure Location Rt brachial Position Sitting Pulse 110 H Pulse Source Pulse Oximeter Pulse Oximetry (%) 98 Oxygen Delivery Method Room Air Intake Visit Reasons: T2DM Intake Note: Patient presents today for a follow-up on Type 2 Diabetes Mellitus, Patient on Insulin Pump: Last Diabetic eye exam was on: 09/26/2024 Last Podiatry exam was on: Does not see a Cancer Program Coordinator Most recent HbA1c: 8.2%, 04/28/2025 Random Glucose- 111 mg/dL, Today Allergies No Known Allergies Allergy (Verified 01/27/25 14:26) HPI Comments Details: Patient is a 45-year-old male with DM type 2 diagnosed around 2011, who presents for management of diabetes. He was last seen 01/27/25 at which time his A1c was 8% up from previous 7.5%. He has been on an insulin pump since approximately 2022. Prior to that time he was on u500 MDI, metformin: stomach issues, was on jardiance in the past, he may have had stomach pains with this but is not sure He was recently started on hydrochlorothiazide for elevated BP Past medical history: Diabetes type 2, hypertension, hypertriglyceridemia, He has a prior h/o pancreatitis had 3 episodes and was hospitalized Micro and macrovascular complications: +retinopathy, +nephropathy, Diabetes medications: He is currently on a tandem T-slim X 2 pump with U-500 Dexcom average glucose: 204 14 day continuous glucose monitor report reviewed Glucose Managment indicator [ ] % Days with CGM data 84.3 % TIme in ranges: 30 % very high (above 250) 21 % high ?(181-250) 46 % in range ?(70-180] 2 % low (69-55) 1 % ?very low (below 54) Interpretation running 50 points greater than target On U500 insulin in pump Basal rate(s) (units/hour) : 12 AM? to 12 AM? 1.0 units / hr Bolus setting Insulin Carbohydrate Ratio (s) 12 AM? to 12 AM? 1:5 new 4.5 Correction Factor / Sensitivity Factor 12 AM? to 12 AM? 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 Regulatory Intern - CDE education: has been seen recently Nutrition visit: 2022 Cancer Program Coordinator: self care denies neuropathy Nephropathy: EGFR>60 2021 Ophthalmology evaluation: no retinopathy Last eye exam last August Other specialists: none PFS Medical History Pancreatitis Uncontrolled type 2 diabetes mellitus with hyperglycemia Uncontrolled type 2 diabetes mellitus Non-adherence to medical treatment Vitamin D deficiency Obesity (BMI 30-39.9) Hypertension Dyslipidemia longterm (current) use of insulin Non-proliferative diabetic retinopathy, moderate, both eyes Diabetic nephropathy associated with type 2 diabetes mellitus Diabetes type 2, uncontrolled Surgical History No pertinent past surgical history Family History Father Diabetes mellitus Mother Diabetes mellitus Paternal Grandfather Diabetes mellitus Maternal Grandmother Diabetes mellitus Social History Household Members: Family Housing: House Alcohol intake: never Patient Tobacco Use Status: Former Tobacco user Tobacco use type: Cigarette Years Smoked: 21 years Substance Use Type: Marijuana service: No Current occupational status: unemployed Physical Exam Vital Signs: Last Vital Signs Pulse 110 H 04/28/25 14:35 BP 162/100 H 04/28/25 14:35 Pulse Ox 98 04/28/25 14:35 Oxygen Delivery Method Room Air 04/28/25 14:35 BMI result Body Mass Index 46.3 Const Other: Absence of Cushingoid features. Absence of acromegalic features. Neck exam reveals nl size thyroid about 15 gms. No thyroid nodules palpable. Heart S1 S2, Reg R/R. No M/R G. Skin exam reveals absence of vitiligo or acanthosis nigricans. No edema Visual exam of foot performed. No ulcerations or open lesions. No inter digit maceration or fissuring. No onychomycosis, no callouses. Sensation intact to monofilament exam. Vibratory sensation is normal with 128 Hz tuning fork. Pulses positive distally Results AMB Hemoglobin A1c AMB Hemoglobin A1c 8.2 % Last Edit by DARNELL Tran on 04/28/25 14:47 Results Reviewed Results Reviewed: Laboratory Last Values Glucose (Clinic) 111 mg/dL (60-115) 04/28/25 14:39 Hgb A1c (Clinic) 8.2 % (4.0-6.0) H 04/28/25 14:44 Assessment & Plan Assessment & Plan (1) Uncontrolled type 2 diabetes mellitus: Category: Medical Plan: 45-year-old type 2 diabetic with history of retinopathy and pancreatitis x3 requiring hospitalization with severe insulin resistance. He is on a pump tandem with U500 insulin. Carbohydrate ratio changed today which should allow for more preprandial insulin. He was asked to enter all carbohydrates 30 minutes before the meal as much as possible. We discussed weight loss strategies today. He declined visit to dietitian. He is eating poorly at work and using the vending machines for his meals. We discussed strategies for meal prepping twice per day using angela jars and lean sources of protein with vegetable and fruit for snack. He has agreed to try this. We briefly discussed bariatric surgery for which at this point in time he is not interested in. He was asked to have the lab done that were placed in July. The patient had an opportunity to ask questions regarding treatment plan. The patient expressed understanding and agreement with the above treatment plan. The patient is aware they should contact our office by phone for worsening glucose readings or for any low blood sugars which may warrant a change in diabetes medication. Compliance is encouraged with medications and any followup testing/consults which may have been ordered. Orders: Orders AMB Hemoglobin A1c Today E11.65 - Type 2 diabetes mellitus with hyperglycemia Coding Level of Care Code Est Pt Level 4 (13637) Complex EM visit Add On G2211 Diagnoses Uncontrolled type 2 diabetes mellitus Time Spent (min) 30 Comment Time spent reviewing labs/provider notes, face to face, chart doc
[2025-04-28 14:35] VITALS: BP 162/100; PULSE 110; O2SAT 98; BMI 46.3
[2025-04-28 14:42] LABS: Glucose, Whole Blood 111 mg/dL (60-115)
--- OUTSIDE RECORDS SUMMARY | 2025-04-28 16:21 | XMS_ITS | Clinical Summary ---
Author Organization [employer] Address [address] [place] [address] Care Team Providers Care Nanny/Household Manager Name Role Phone Unavailable Primary Care Provider [...] 1979 FIT 1979 FOBT 1979 Sigmoidoscopy 1979 Disability Screening 1979 Alcohol/Substance Use Screening 1991 Tobacco Screening 1991 Family Planning (PISQ) 1994 Hepatitis B Vaccines (1 of 3 - 19+ 3-dose series) 1998 DTaP/Tdap/Td Vaccines (2 - T d or Tdap) 02/18/2024 02/17/2014, 10/11/2005 COVID-19 Vaccine ( - 2023-2 5 season) 2024 Influenza Vaccine (Season Ended) 2025 12/17/2013 Lipid Panel 02/28/2027 02/28/2022 Zoster Vaccines [...] patient's age to complete this topic Meningococcal B Vaccine Aged Out No l onger eligible based on patient's age to complete [...] Procedure Name Priority Date/Time Associated Diagnosis Comments MARYLOU HISTORICAL LIPID PANEL Routine 02/28/2022 12:54 PM EDT from Last 3 Months or Most Recently Relevant to Health Maintenance Results * (ABNORMAL) LIPID PANEL (02/28/2022 12:54 PM EDT) Cholesterol 260 mg/dL [facility] Comment: Desirable Cholesterol: ?less than 200 mg/dL Borderline High Cholesterol: ??200-239 mg/dL High Cholesterol: ? greater than 239 mg/dL HDL Cholesterol 29 mg/dL [facility] Comment: Desirable HDL: ??greater than 40 mg/dL ?? Note: This HDL assay may give artificially ? low results in patients with liver disease. LDL Cholesterol Calculated TNP mg/dl [facility] Comment: Unable to calculate the [...] Alanine Aminotransferase 23 0 - 40 U/L [facility] Albumin Level 4.3 3.5 - 5.0 g/dL [facility] Alkaline Phosphatase 92 39 - 117 U/L [facility] Anion Gap 13 12 - 20 [facility] Aspartate Amino Transferase 19 5 - 37 U/L [facility] Bilirubin Total 0.5 0.0 - [...] >60 [facility] Comment: NOTE: ??For -Turkmen individuals, multiply the result ?by . ?? Chronic Kidney Disease: ??Estimated GFR < 60 mL/min/1.73m2 Severe Kidney Disease: ??Estimated GFR < 15 mL/min/1.73m2 Glucose Fasting 207(H) 60 - 99 mg/dL [facility] Comment: A fasting glucose of 126 mg/dl or greater on more than one occasion is considered diagnostic of diabetes. Potassium 4.5 3.3 - 5.1 mmol/L [facility] Sodium 139 135 - 145 mmol/L [facility] Total Protein 7.5 6.5 - 8.0 g/dL [facility] 02/28/2022 12:5 4 PM EDT us Historical Provider HISTORICAL/NON ORDERABLE LABS Final Result [facility] [address] from Last 3 Months or Most Recently Relevant to Health Maintenance
== END 2025-04-28 15:18 | disposition home or self-care (01) ==
LOC: HO.ENCR 14:33
PROVIDERS: Visit Provider Nurse Practitioner Adult Health
DX: E11.65 Type 2 diabetes mellitus with hyperglycemia (principal)
CPT/HCPCS: 99214

== ENCOUNTER → 2025-04-28 14:32 | Outpatient (BNVA) | payer OTHER, SELFPAY | PROVIDERS: Visit Provider Nurse Practitioner Adult Health | DX: E11.65 Type 2 diabetes mellitus with hyperglycemia (principal) | CPT/HCPCS: 82947; 83036 ==

== ENCOUNTER 2025-05-13 13:05 | Outpatient (REF) | payer OTHER, SELFPAY ==
[2025-05-13 13:26] LABS: MANUAL DIFF FLAG NO
[2025-05-13 13:40] LABS: Basophils Absolute Auto 0.1 X10*3/uL (0.0-0.2); Basophils Percent Auto 1.2 % (0-2); Eosinophils Absolute Auto 0.2 X10*3/uL (0.0-0.4); Eosinophils Percent Auto 2.6 % (0-4); Hematocrit 43.4 % (42.0-52.0); Hemoglobin 13.3 g/dl (14.0-18.0); Imm Gran Abs Auto 0.05 X10*3/uL (0.00-0.03); Imm Gran Pct Auto 0.9 % (0.0-0.4); Lymphocytes Absolute Auto 1.9 X10*3/uL (1.2-4.9); Lymphocytes Percent Auto 32.1 % (20-40); Mean Corpuscular HGB Conc 30.6 g/dl (31.0-36.0); Mean Corpuscular Hemoglobin 25.1 pg (27.0-33.0); Mean Platelet Volume 10.6 fL (9.4-12.4); Monocytes Absolute Auto 0.4 X10*3/uL (0.1-1.2); Monocytes Percent Auto 6.7 % (2-11); Neutrophils Absolute Auto 3.3 x10*3/uL (2.0-8.3); Neutrophils Percent Auto 56.5 % (45-73); Platelet Count 227 X10*3/uL (160-400); Red Blood Count 5.29 X10*6/uL (4.60-5.80); Red Cell Distribution Width 14.4 % (11.0-16.0); White Blood Count 5.9 X10*3/uL (4.8-10.8)
[2025-05-13 14:11] LABS: Appearance Urine Clear; Color Urine Yellow; Glucose Urine UA Negative (Negative); Leukocyte Esterase Urine Negative (Negative); Nitrite Urine Negative (Negative); UMIC TRIGGER UA YES; Urine Blood Negative (Negative); Urine Ketones Trace mg/dL (Negative); Urine Protein 300 (3+) mg/dL (Neg-Trace)
[2025-05-13 14:14] LABS: Bacteria Urine None Seen (None Seen); Hyaline Casts Urine 0-2 /LPF (0-2); RBC Urine 0-2 /HPF (0-2); Squamous Epithelial Cell Urine 0-2 /HPF (0-2); WBC Urine 0-5 /HPF (0-5)
[2025-05-13 14:15] LABS: Alanine Aminotransferase 37 U/L (0-40); Anion Gap 11 (12-20); Aspartate Amino Transferase 40 U/L (5-37); Blood Urea Nitrogen 16 mg/dL (9-16); Calcium 9.2 mg/dL (8.4-10.2); Carbon Dioxide 30 mmol/L (22-29); Chloride 106 mmol/L (96-108); Cholesterol 281 mg/dL (<200); Estimated Glomerular Filt Rate > 60; Glucose Random 101 mg/dL (60-115); HDL Cholesterol 32 mg/dL (>40); LDL Cholesterol Calculated 210 mg/dL (<100); Potassium 3.9 mmol/L (3.3-5.1); Sodium 143 mmol/L (135-145); Triglycerides 199 mg/dL (<150)
[2025-05-13 14:52] LABS: Creatinine Urine 221.64 mg/dL; Creatinine Urine 222.73 mg/dL
--- OUTSIDE RECORDS SUMMARY | 2025-05-13 14:59 | XMS_ITS | Clinical Summary ---
Author Organization [employer] Address [address] [facility] [address] [place] [address] Care Team Providers Care Marketing Writer Name Role Phone Unavailable Primary Care Provider [...] Years) and At-Risk Patients (6 to 49) Years Aged Out 10/11/2005 No longer eligible b [...] [facility] Comment: Desirable Cholesterol: less than 200 mg/dL Borderline High Cholesterol: 200-239 mg/dL High Cholesterol: greater than 239 mg/dL HDL Cholesterol 29 mg/dL [facility] Comment: Desirable HDL: greater than 40 mg/dL Note: This HDL assay may give artificially low results in patients with liver disease. LDL Cholesterol Calculated TNP mg/dl [facility] Comment: Unable to calculate the LDL. The formula of Friedwald, Mayo, and Earlien is only valid if the triglycerides are less than 400 mg/dl. Triglycerides 478 mg/dL [facility] Comment: Desirable Triglyceride: less than 150 mg/dL Borderline High Triglyceride 150-199 mg/dL High Triglyceride: 200-499 mg/dL Very High Triglyceride: greater than or equal to 5OO mg/dL Alanine Aminotransferase 23 0 - 40 U/L [facility] Albumin Level 4.3 3.5 - 5.0 g/dL [facility] Alkaline Phosphatase 92 39 - 117 U/L [facility] Anion Gap 13 12 - 20 [facility] Aspartate Amino Transferase 19 5 - 37 U/L [facility] Bilirubin Total 0.5 0.0 - 1.0 mg/dL [facility] Blood Urea Nitrogen 18(H) 9 - 16 mg/dL [facility] Calcium 9.9 8.4 - 10.2 mg/dL [facility] Carbon Dioxide 28 22 - 29 mmol/L [facility] Chloride 103 96 - 108 mmol/L [facility] Creatinine, Serum 1.14 0.5 - 1.4 mg/dL [facility] Estimated Glomerular Filt Rate >60 [facility] Comment: NOTE: For -[place] individuals, multiply the result by 1.210. Chronic Kidney Disease: Estimated GFR < 60 mL/min/1.73m2 Severe Kidney Disease: Estimated GFR < 15 mL/min/1.73m2 Glucose Fasting 207(H) 60 - 99 mg/dL [facility] Comment: A fasting glucose of 126 mg/dl or greater on more than one occasion is considered diagnostic of diabetes. Potassium 4.5 3.3 - 5.1 mmol/L [facility] Sodium 139 135 - 145 mmol/L [facility] Total Protein 7.5 6.5 - 8.0 g/dL [facility] 02/28/2022 12:5 4 PM EDT us Historical Provider HISTORICAL/NON ORDERABLE LABS Final Result [facility] [address] from Last 3 Months or Most Recently Relevant to Health Maintenance
[2025-05-13 15:08] LABS: Microalbum/Creatinine Ratio Ur 699.3 ug/mg cr (<30); Protein/Creatinine Ratio, Ur 0.99 (<0.2); Total Protein Urine Random 220 mg/dL (<12)
== END 2025-05-13 13:06 | disposition home or self-care (01) ==
LOC: HO.LAB 13:05
PROVIDERS: Internal Medicine Nephrology; Visit Provider Nurse Practitioner Adult Health
DX: E11.65 Type 2 diabetes mellitus with hyperglycemia (principal); E11.22 Type 2 diabetes mellitus with diabetic chronic kidney disease; N18.2 Chronic kidney disease, stage 2 (mild); R80.9 Proteinuria, unspecified
CPT/HCPCS: 36415; 80048; 80061; 81001; 82043; 82570; 84156; 84450; 84460; 85025; 87086

== ENCOUNTER 2025-06-30 13:33 | Outpatient (AMB) | payer OTHER, SELFPAY ==
[2025-06-30 13:36] VITALS: BP 180/120; PULSE 104; O2SAT 96; BMI 46.6
--- NOTE | 2025-06-30 13:36 | MHC.OFFVIS ---
Vital Signs 06/30/25 13:36 Height 5 ft 6 in Weight 288 lb 12.889 oz BMI 46.6 BP 180/120 H Blood Pressure Location Rt brachial Position Sitting Pulse 104 H Pulse Source Pulse Oximeter Pulse Oximetry (%) 96 Oxygen Delivery Method Room Air Intake Visit Reasons: T2DM Intake Note: Patient presents today for a follow-up on Type 2 Diabetes Mellitus, Patient on Insulin Pump: Last Diabetic eye exam was on: 09/26/2024 Last Podiatry exam was on: Does not see a Green Building Materials Designer Most recent HbA1c: 8.2%, 04/28/2025 Random Glucose- 113 mg/dL, Today Plastic Finisher Required: No Accompanied by: Self / Same As Patient Allergies No Known Allergies Allergy (Verified 06/30/25 13:38) Medication List - Last Reconciled 06/30/25 by Priscilla Herrera MD acetone (urine) test (Ketone Urine Test strips) As directed glucose over 250, illness, nausea, vomiting blood sugar diagnostic (FreeStyle Lite Strips) 4 times a day blood-glucose meter (FreeStyle Lite Meter kit) 4 times a day blood-glucose sensor (Dexcom G6 Sensor device) As directed blood-glucose sensor (Dexcom G7 Sensor device) As directed every 10 days blood-glucose transmitter (Dexcom G6 Transmitter device) As directed blood-glucose,extractions technologist,cont (Dexcom G6 Wharfinger Chief) As directed cholecalciferol (vitamin D3) 125 mcg PO DAILY 30 days glucagon 3 mg/actuation (Baqsimi) 3 mg intranasal .PRN PRN 30 days MDD 6 mg Humulin R U-500 (Conc) Insulin (insulin regular hum U-500 conc) inject up to 335 units every day via insuli pump daily; 30 days NS hydrochlorothiazide 12.5 mg PO DAILY 30 days insulin regular hum U-500 conc (Humulin R U-500 (Conc) Insulin Kwikpen) 80 units prelunch and 65 units predinner subcutaneously every evening; insulin U-500 syringe-needle As directed injects 3/x day lancets (FreeStyle Lancets) 4 times a day lisinopril 40 mg PO DAILY omega-3 fatty acids (Fish Oil Concentrate) 1,000 mg PO ONCE pen needle, diabetic (BD Cindy 2nd Gen Pen Needle) As directed pen needle, diabetic (BD Cindy 2nd Gen Pen Needle) five times a day rosuvastatin 10 mg PO DAILY 30 days semaglutide (Ozempic) 0.25 mg (0.368 mL) subcut QWEEK 28 days HPI Comments Details: Patient is a 45-year-old male with DM type 2 diagnosed around 2011, who presents for management of diabetes. Last seen by Nancy Sutherland APRN in April 2025. 01/27/25 A1c was 8% Most recent HbA1c: 8.2%, 04/28/2025 BP elevated in 180 systolic, hasnt been taking the lisipnopril recenlty, because forgot IS not sure if he is on the HCTZ Prior therapy He has been on an insulin pump since approximately 2022. Prior to that time he was on u500 MDI, metformin: stomach issues, was on jardiance in the past, he may have had stomach pains with this but is not sure, also has a history of pancreatitis, not a good candidate for GLP 1 agonist? But this was in the setting of hypertriglyceridemia, now he is on Ozempic 0.25 mg weekly since May 2025. Past medical history: Diabetes type 2, hypertension, hypertriglyceridemia, He has a prior h/o pancreatitis had 3 episodes and was hospitalized due to high triglycerides, last hospitalization a while back ago > 5 years Diabetes medications: He is currently on a tandem T-slim X 2 pump with U-500 OZempic 0.25 mg weekly injection ( started 06/16/25 takes on Tuesdays, taken 2 injections) CGM data downloaded as well as pump data downloaded on glucose from June 16 to June 30 2025 Average glucose 168 mg/dL Time CGM active 84.2% Standard deviation 69 mg/dL Coefficient of variation 41.3% Within target range 56% High 26% Very high 14% Low 3% Very low 1% Interpretation: He is not entering carbs consistently, plus he is not giving himself the boluses 30 minutes before. Insulin use Basal: 13.4 units 41% Bolus per day 19.3 units, 59% Total insulin per day: 32.7 units Control IQ active 76% Manual 24% On U500 insulin in pump Basal rate(s) (units/hour) : 12 AM? to 12 AM? 1.0 units / hr Bolus setting Insulin Carbohydrate Ratio (s) 12 AM? to 12 AM? 4.5 Correction Factor / Sensitivity Factor 12 AM? to 12 AM? 1:21 Backup insulin pump plan u500 80 units in the morning 65 later in the day Symptoms reported: denies numbness, tingling, cramping in lower extremities Hypoglycemia: frequent since exercising Hyperglycemia: denies urinary frequency, + nocturia, polydypsia when blood glucose elevated, after meals Micro vascular +retinopathy, last eye visit 10/19, +nephropathy, has microalbuminuria , sees nephrology in [place] ?? 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 Director - CDE education: Oct 2024 Nutrition visit: 2022 Physical exam General: sitting comfortably in no acute distress HEENT: normocephalic/atraumatic, Neck: supple Cardiac: normal heart sounds Pulm: normal breath sounds B/L, no added breath sounds Abd: not distended, no tenderness Extremities: no edema, no signs of myxedema Neuro: AAO x3, Speech: normal, no facial droop, moving all 4 extremities Skin: no rash Foot exam: Deferred today Laboratory Tests 01/27/25 04/28/25 05/13/25 14:44 14:44 13:22 Hgb Hct Plt Count Sodium Creatinine Estimated GFR Glucose (Clinic) Hgb A1c (Clinic) 8.0 H 8.2 H AST ALT Triglycerides Cholesterol LDL Cholesterol, Calc HDL Cholesterol U Random Total Protein 220 H Urine Microalbumin 1550.0 Microalb/Creat Ratio 699.3 H Protein/Creatinin Ratio 0.99 H 05/13/25 06/30/25 13:25 13:44 Hgb 13.3 L D Hct 43.4 D Plt Count 227 D Sodium 143 Creatinine 1.11 Estimated GFR > 60 Glucose (Clinic) 113 Hgb A1c (Clinic) AST 40 H ALT 37 Triglycerides 199 H Cholesterol 281 H LDL Cholesterol, Calc 210 H HDL Cholesterol 32 L U Random Total Protein Urine Microalbumin Microalb/Creat Ratio Protein/Creatinin Ratio [facility] Medical History (Updated 06/30/25 @ 14:37 by rPiscilla Herrera MD) Obesity Dyslipidemia associated with type 2 diabetes mellitus Hyperlipidemia Pancreatitis Uncontrolled type 2 diabetes mellitus with hyperglycemia Uncontrolled type 2 diabetes mellitus Non-adherence to medical treatment Vitamin D deficiency Obesity (BMI 30-39.9) Hypertension 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 Non-proliferative diabetic retinopathy, moderate, both eyes Diabetic nephropathy associated with type 2 diabetes mellitus Diabetes type 2, uncontrolled Surgical History No pertinent past surgical history Family History Father Diabetes mellitus Mother Diabetes mellitus Paternal Grandfather Diabetes mellitus Maternal Grandmother Diabetes mellitus Social History Household Members: Family Housing: House Alcohol intake: never Patient Tobacco Use Status: Former Tobacco user Tobacco use type: Cigarette Years Smoked: 21 years Substance Use Type: Marijuana service: No Current occupational status: unemployed Physical Exam Vital Signs: Last Vital Signs Pulse 104 H 06/30/25 13:36 BP 180/120 H 06/30/25 13:36 Pulse Ox 96 06/30/25 13:36 Oxygen Delivery Method Room Air 06/30/25 13:36 BMI result Body Mass Index 46.6 Office Procedures Glucose Monitoring Details Details: See [facility] [address] - Glucose monitoring, continuous-physician I&R Procedure code (CPT) selection complete Results Reviewed Results Reviewed: Laboratory Last Values Glucose (Clinic) 113 mg/dL (60-115) 06/30/25 13:44 Assessment & Plan Assessment & Plan (1) Uncontrolled type 2 diabetes mellitus: Category: Medical Qualifiers: Glycemic state: with hyperglycemia Qualified Code(s): E11.65 - Type 2 diabetes mellitus with hyperglycemia Plan: 45-year-old male with type 2 diabetes mellitus with history of retinopathy, nephropathy and pancreatitis x3 greater than 5 years ago requiring hospitalization with hypertriglyceridemia severe insulin resistance. He is on a tandem T slim insulin pump tandem with U500 insulin. Insulin pump data reviewed and he is in target range only 56% of the time with a lot of inconsistent carb entries. He is also not giving himself the U 500 insulin 30 minutes before. This is resulting in 1st hyperglycemia then followed by hypoglycemia. He was asked to enter all carbohydrates 30 minutes before the meal as much as possible. Last visit discussed weight loss strategies which Nancy. He declined visit to dietitian. He is eating poorly at work and using the vending machines for his meals. We discussed strategies for meal prepping twice per day using angela jars and lean sources of protein with vegetable and fruit for snack. briefly discussed bariatric surgery for which at this point in time he is not interested in. He was started on Ozempic 0.25 mg weekly in May 2025. While he has had prior episodes of pancreatitis XX 3 but this was a greater than 5 years ago and was apparently in the setting of elevated triglycerides. Ozempic could help him with combining both insulin resistance and bringing down his lipid levels with weight management. For now we can continue to keep him on it but I did explain to him risk of pancreatitis. He is due for his 3rd injection today, we will plan to go up to 0.5 mg weekly dose once he is done with 4 injections. Plan: -continue current insulin pump settings with the education to bolus 30 minutes before meals. -increase Ozempic to 0.5 mg weekly injection after 4 injections -he has a history of retinopathy, last eye visit August 2024, discussed with the him importance of regular follow up -he has microalbuminuria, labs from April 2025 showed urine microalbumin/creatinine ratio elevated at 699, per patient he sees Nephrology already in [place] -foot exam deferred today, he does not see Podiatry The patient had an opportunity to ask questions regarding treatment plan. The patient expressed understanding and agreement with the above treatment plan. The patient is aware they should contact our office by phone for worsening glucose readings or for any low blood sugars which may warrant a change in diabetes medication. Compliance is encouraged with medications and any followup testing/consults which may have been ordered. (2) Dyslipidemia associated with type 2 diabetes mellitus: Code(s): E11.69 - Type 2 diabetes mellitus with other specified complication; E78.5 - Hyperlipidemia, unspecified Category: Medical Plan: Elevated triglycerides at 200, elevated LDL of 210 per labs from April 2025. He is not sure if he has been taking the rosuvastatin. There has been some issue with the adherence. Plan: -increase rosuvastatin to 20 mg daily -plan to repeat lipid panel in winter. (3) Obesity: Code(s): E66.9 - Obesity, unspecified Category: Medical Qualifiers: Obesity type: due to excess calories Obesity classification: adult class 3 (BMI >= 40) Serious obesity comorbidity presence: with serious comorbidity Body mass index: BMI 45.0-49.9 Qualified Code(s): E66.813 - Obesity, class 3; Z68.42 - Body mass index [BMI] 45.0-49.9, adult Plan: Increase Ozempic to 0.5 mg weekly after 4 injections Not interested in bariatric surgery currently. Current BMI 46.6 kg per m2 with current weight 288 lb. Plan I spent 30 minutes in reviewing the record, seeing the patient and documenting in the medical record. Orders: Orders AMB Glucose Monitoring Today E11.65 - Type 2 diabetes mellitus with hyperglycemia, Z79.4 - assisted (current) use of insulin Medications: New rosuvastatin 20 mg PO DAILY 30 tabs 5RF Changed From semaglutide (Ozempic) for 4 weeks 0.25 mg (0.368 mL) subcut QWEEK 28 days 3 mL 3RF To semaglutide (Ozempic) 0.5 mg (0.736 mL) subcut QWEEK 3 mL 4RF 28 days Discontinued rosuvastatin Discontinued Reason: Doctor's Order 10 mg PO DAILY 30 days 30 tabs 3RF Patient Instructions: Increase rosuvatatin to 20 mg daily Bring all your pill bottles next visit Increase Ozempic to 0.5 mg weekly injection after 4 injections of the 0.25 mg Advised to bolus 30 mins before eating Coding Level of Care Code Est Pt Level 4 (07929) Diagnoses Uncontrolled type 2 diabetes mellitus with hyperglycemia E11.65 Glycemic state: with hyperglycemia Dyslipidemia associated with type 2 diabetes mellitus E11.69; E78.5 Class 3 severe obesity due to excess calories with serious comorbidity and body mass index (BMI) of 45.0 to 49.9 in adult E66.813; Z68.42 Obesity type: due to excess calories Obesity classification: adult class 3 (BMI >= 40) Serious obesity comorbidity presence: with serious comorbidity Body mass index: BMI 45.0-49.9 CPT Codes Details - CPT: 54350 - Glucose monitoring, continuous-physician I&R ([id number]) Time Spent (min) 30
[2025-06-30 13:48] LABS: Glucose, Whole Blood 113 mg/dL (60-115)
--- OUTSIDE RECORDS SUMMARY | 2025-06-30 14:14 | XMS_ITS ---
Author Name [facility] Organization Unknown Care Team Organization Name Specialty Phone Email Start Date End Da te [facility] LESLI SANDRA Primary Care 10/03/2022 4
--- OUTSIDE RECORDS SUMMARY | 2025-06-30 14:14 | XMS_ITS | Clinical Summary ---
Author Organization [facility] Address [address] [place] [address] Phone Care Team Providers Care Commercial Management Accountant Name Role Phone Sharee Sal Primary Care Provider [phone] Allergies No known active allergies Medications HumaLOG [...] by mouth Active folic acid-vitamin B complex-vitamin K-xuicndyk-vxhf (DIALYVITE) 3 MG tablet Take 1 tablet by mouth 1 (one) time each day Active omega-3 (FISH OIL) 1000 MG capsule Take by mouth 1 (one) time each day Active HumuLIN R 500 UNIT/ML CONCENTRATED injection 12/20/19 23 Active lisinopril 20 MG tablet Take 1 tablet (20 mg total) by mouth 1 (one) time each day 90 tablet 3 01/31/20 23 Active Dapagliflozin Propanediol 10 MG tablet Take 10 mg by mouth 1 (one) time each day in the morning 90 tablet 1 05/15/20 25 025 Active Active Problems Problem Noted Date Diagnosed Date Essential (primary) hypertension 09/18/2022 Type 2 diabetes mellitus without complication Chronic kidney disease, stage 2 (mild) 2 Proteinuria 07/24/2022 Encounters Date Type Department Care Team Description 05/15/2025 11:00 AM EDT Office Visit [facility] [address] [address] Fran Rosen MD Type 2 diabetes mellitus without complication (HCC) (Primary Dx); Persistent proteinuria from Last 3 Months Immunizations Immunization Administration Dates Next Due Tdap 10/03/2023 Family [...] Sign Reading Time Taken Comments Blood Pressure 148/78 05/15/2025 11:24 AM EDT Pulse 88 05/15/2025 11:24 AM EDT Temperature - - Respiratory Rate - - Oxygen Saturation 98% 05/15/2025 11:24 AM EDT Inhaled Oxygen Concentration - - Weight 129 kg (284 lb 6.4 oz) 05/15/2025 11:24 A M EDT Height - - Body Mass Index - - Plan of Treatment Upcoming Encounters Date Type Department Care Team (Late st Contact Info) Description 11/10/2025 2:15 PM EST Office Visit [facility] [address] [address] Fran Rosen MD [address] [address] Health Maintenance Due Date Last Done Comments Hepatitis B Vaccine (1 of 3 - 19+ 3-dose series) 1998 Pneumococcal Vaccine: Peds ( 0 to 5 Years) and At-Risk Patients (6 to 49 Years) (2 of 2 - PCV) 10/11/2006 10/03/2023, 10/11/2005 Diabetes: Hemoglobin A1C 09/18/2022 Diabetes: Ophthalmology Exam 09/18/2022 Diabetes: Pedal Pulse Checked 09/18/2022 Diabetes: Sensory Foot Exam 09/18/2022 Diabetes: Visual Foot Exam 09/18/2022 Influenza Vaccine (#1) 2025 12/17/2013 Pneumococcal Vaccine: 50+ Years Discontinued 3, 10/11/2005 Procedures Procedure Name Priority Date/Time Associated Diagnosis Comments PROTEIN / CREATININE RATIO, URINE Routine 05/13/2025 2:03 PM EDT Proteinuria, not otherwise specified Type 2 diabetes mellitus without complication (HCC) Chronic kidney disease, stage 2 (mild) URINALYSIS WITH MICROSCOPIC Routine 05/13/2025 2:03 PM EDT Proteinuria, not otherwise specified Type 2 diabetes mellitus without complication (HCC) Chronic kidney disease, stage 2 (mild) from Last 3 Months Results * (ABNORMAL) Urine Protein / creatinine ratio (05/13/2025 2:03 PM EDT) Creatinine, Urine 222.73 mg/dL See order comments Protein Urine Random 220(H) <12 mg/dL See order comments Protein/Creati nine Ratio, Urine 0.99(H) <0.2 See order comments Comment: The spot urine protein:creatinine ratio may increase to 0.3 during normal . Urine specimen (specimen) Urine specimen obtained by clean catch procedure / Unknown 05/13/2025 2:03 PM EDT 05/13/2025 2:03 PM EDT Fran Rosen MD LAB URINE ORDERABLES Final Re sult [place] See order comments [place] [address] * (ABNORMAL) Urinalysis with microscopic (05/13/2025 2:03 PM EDT) Color Urine Yellow See orde r comments Appearance Urine Clear See order comments pH Urine 6.0 5.0 - 9.0 See order comments Glucose Urine Negative Negative mg/dL See order comments Blood, Urine Negative Negative See ord er comments Specific [place] Urine 1.020 1.005 - 1.025 See order comments Protein Urine 300 (3+)(A) Neg-Trace mg/dL See order comments Ketones, Urine Trace Negative mg/dL See order comments Nitrite, Urine Negative Negative See o rder comments Leukocyte Esterase Urine Negative Negative See order comments RBC, Urine 0-2 0 - 2 /HPF See orde r comments WBC 0-5 0 - 5 /HPF See order comments Squamous Epithelial, Urine 0-2 0 - 2 /HPF See order comments Bacteria, Urine None Seen None Seen See order comments Hyaline Casts, Urine 0-2 0 - 2 /LPF See order comments Urine specimen (specimen) Urine specimen obtained by clean catch procedure / Unknown 05/13/2025 2:03 PM EDT 05/13/2025 2:03 PM EDT us Fran Rosen MD LAB URINE ORDERABLES Final Re sult [place] See order comments [place] [address] from Last [address] [place] [address] [facility] Care Teams Commercial Management Accountant Relationship Specialty Start Date End Date Sharee Sal [address] [place] [address] PCP - General 05/15/25
== END 2025-06-30 14:24 | disposition home or self-care (01) ==
LOC: HO.ENCR 13:33
PROVIDERS: Visit Provider Student in an Organized Health Care Education/Training Program
DX: E11.65 Type 2 diabetes mellitus with hyperglycemia (principal); E11.69 Type 2 diabetes mellitus with other specified complication; E78.5 Hyperlipidemia, unspecified; E66.813 Obesity, class 3; Z68.42 Body mass index [BMI] 45.0-49.9, adult
CPT/HCPCS: 95251; 99214

== ENCOUNTER → 2025-06-30 13:33 | Outpatient (BNVA) | payer OTHER, SELFPAY | PROVIDERS: Visit Provider Student in an Organized Health Care Education/Training Program | DX: E11.65 Type 2 diabetes mellitus with hyperglycemia (principal) | CPT/HCPCS: 82947 ==

== ENCOUNTER 2025-11-10 14:00 | Outpatient (AMB) | payer OTHER, SELFPAY ==
--- NOTE | 2025-11-10 14:32 | MHC.AMDMED ---
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: No Accompanied by: Self / Same As Patient Allergies No Known Allergies Allergy (Verified 06/30/25 13:38) HPI Comprehensive Diabetes Asmnt Most Recent Diabetes Results: Microalb/Creat Ratio, (<30) 699.3 ug/mg cr H 05/13/25 Cholesterol, (<200) 281 mg/dL H 05/13/25 HDL Cholesterol, (>40) 32 mg/dL L 05/13/25 Triglycerides, (<150) 199 mg/dL H 05/13/25 Creatinine, (0.5-1.4) 1.11 mg/dL 05/13/25 BUN, (9-16) 16 mg/dL 05/13/25 Sodium, (135-145) 143 mmol/L 05/13/25 Potassium, (3.3-5.1) 3.9 mmol/L 05/13/25 Chloride, (96-108) 106 mmol/L 05/13/25 Carbon Dioxide, (22-29) 30 mmol/L H 05/13/25 Calcium, (8.4-10.2) 9.2 mg/dL 05/13/25 AST, (5-37) 40 U/L H 05/13/25 ALT, (0-40) 37 U/L 05/13/25 Total Protein, (6.5-8.0) 7.5 g/dL 02/28/22 Albumin, (3.5-5.0) 4.3 g/dL Δ 02/28/22 [facility] Medical History (Updated 06/30/25 @ 14:37 by Priscilla Herrera MD) Obesity Dyslipidemia associated with type 2 diabetes mellitus Hyperlipidemia Pancreatitis Uncontrolled type 2 diabetes mellitus with hyperglycemia Uncontrolled type 2 diabetes mellitus Non-adherence to medical treatment Vitamin D deficiency Obesity (BMI 30-39.9) Hypertension 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 Non-proliferative diabetic retinopathy, moderate, both eyes Diabetic nephropathy associated with type 2 diabetes mellitus Diabetes type 2, uncontrolled Surgical History No pertinent past surgical history Family History Father Diabetes mellitus Mother Diabetes mellitus Paternal Grandfather Diabetes mellitus Maternal Grandmother Diabetes mellitus Social History Household Members: Family Housing: House Alcohol intake: never Patient Tobacco Use Status: Former Tobacco user Tobacco use type: Cigarette Years Smoked: 21 years Substance Use Type: Marijuana service: No Current occupational status: unemployed Assessment & Plan Assessment & Plan (1) Uncontrolled type 2 diabetes mellitus: Qualifiers: Glycemic state: with hyperglycemia Qualified Code(s): E11.65 - Type 2 diabetes mellitus with hyperglycemia Plan: Patient presents for pump training for T slim insulin pump and Dexcom G7 CGM training today. Patient uses Humulin U 500 with control IQ The following topics were reviewed today: -new software update -Reconnecting to LISNR annalee ??? High Alert: off ??? Low Alert: 80 mg/dl Patient's last A1c 8.2% on 04/28/25 patient instructed to schedule appointment with provider due for next A1c Reviewed with patient how to fill T slim cartridge from Humulin U 500 insulin pen. Encourage patient to change infusion set every 72 hours, he is currently changing every 4-5 days Patient reports he frequently forgets to bolus prior to meals Discussed the importance of pre bolusing 30 minutes prior to meals for best glucose control. Patient works 3rd shift in glucose tends to be elevated throughout his work day Instructed patient to only use room temperature insulin, how to load cartridge or fill pod, with insulin. Fill tubing and cannula (if applicable) Inserting infusion set or starting pod Troubleshooting after starting new pod or inserting new insulin set: Occlusion, adhesive tape sensitivity, redness Check BG 2 hours after site change Safety information: Patient understands the basic concepts of pump therapy, how to give insulin for meals and snacks, how to troubleshoot for hyper and hypoglycemia. Setting verified by CDCES, no changes made to insulin pump settings at this visit Basal rate(s) (units/hour) : 12 AM? to 12 AM? 1 units / hr Bolus setting Insulin Carbohydrate Ratio (s) 12 AM? to 12 AM? 1:4.5 Correction Factor / Sensitivity Factor 12 AM? to 12 AM? 1:21 Patient Instructions: Reduce high carbohydrate drinks Follow up with Sodium Chlorite Operator as needed Coding Level of Care Code Est Pt Level 1 (70609) Diagnoses Uncontrolled type 2 diabetes mellitus with hyperglycemia E11.65 Glycemic state: with hyperglycemia
--- OUTSIDE RECORDS SUMMARY | 2025-11-10 18:15 | XMS_ITS | Clinical Summary ---
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 LDL Cholesterol Calculated TNP mg/dl [facility] Comment: Unable to calculate the LDL. The formula of Friedwald, Mayo, and Earline is only valid if the triglycerides are less than 400 mg/dl. Triglycerides 478 mg/dL [facility] Comment: Desirable Triglyceride: less than 150 mg/dL Borderline High Triglyceride 150-199 mg/dL High Triglyceride: 200-499 mg/dL Very High Triglyceride: greater than or equal to 5OO mg/dL Alanine Aminotransferase 23 0 - 40 U/L [facility] Albumin Level 4.3 3.5 - 5.0 g/dL [facility] Alkaline Phosphatase 92 39 - 117 U/L [facility] Anion Gap 13 12 - 20 [facility] Aspartate Amino Transferase 19 5 - 37 U/L [facility] Bilirubin Total 0.5 0.0 - [...] >60 [facility] Comment: NOTE: For -[place] individuals, multiply the result by 1.210. Chronic Kidney Disease: Estimated GFR < 60 mL/min/1.73m2 Severe Kidney Disease: Estimated GFR < 15 mL/min/1.73m2 Glucose Fasting 207(H) 60 - 99 mg/dL [facility] Comment: A fasting glucose of 126 mg/dl or greater on more than one occasion is considered diagnostic of diabetes. Potassium 4.5 3.3 - 5.1 mmol/L [facility] Sodium 139 135 - 145 mmol/L [facility] Total Protein 7.5 6.5 - 8.0 g/dL [facility] 02/28/2022 12:5 4 PM EDT us Historical Provider HISTORICAL/NON ORDERABLE LABS Final Result [facility] [address] from Last 3 Months or Most Recently Relevant to Health Maintenance
== END 2025-11-10 14:35 | disposition home or self-care (01) ==
PROVIDERS: Visit Provider Registered Nurse Diabetes Educator
DX: E11.65 Type 2 diabetes mellitus with hyperglycemia (principal)
CPT/HCPCS: 99499